=== PATIENT | male | born 1990 | race Caucasian/White ===

== ENCOUNTER 2017-06-07 11:37 | Emergency (ER) | payer OTHER ==
[2017-06-07] MEDS ORDERED: TORAdol 30 mg Injection IM ONE (11:55)
--- NOTE | 2017-06-07 12:01 | ERPHSYRPT ---
- History of Present Illness Time Seen by Provider: 06/07/17 11:56 Source: patient Exam Limitations: no limitations Patient Subjective Stated Complaint: states two weeks ago was hammering and struck 2nd digit left hand. having swelling and pain at joint on finger. has full rom to finger. also having pain to right foream. started yesterday. had surgery on right arm in the past. Triage Nursing Assessment: slight swelling noted to 2nd digit left hand. moving finger without difficulty. right forearm shows scar from previous surgery. no swelling noted to right forearm. Physician History: 27-year-old white male arrives with complaint of pain and swelling of his right index finger at the PIP joint dorsally symptoms going on for 2 weeks he states this began after hitting it with a hammer. He also complains of pain in his right wrist he states he has had a surgery on his right anterior forearm/wrist in the past and the yesterday at work he was lifting at work and felt a strain in his right wrist he has pain in the right anterior wrist worse with movement. Patient denies other complaints. Past medical history includes anxiety and depression old chart shows migraines and seizures. Past surgical history shows right forearm surgery. Social history positive for tobacco use. Occurred: other (right wrist pain since yesterday, right index finger painfor 2 weeks) Quality: other (lifting at work yesterday injured right wrist, hit right hand with hammer 2 weeks ago injuring right index finger) Extremities Pain Location: forearm: right, 2nd finger: left Modifying Factors: Improves With: nothing Associated Symptoms: none Allergies/Adverse Reactions: tramadol HCl [From [facility]] Allergy (Unknown, Verified 06/07/17 11:45) trazodone Allergy (Unknown, Verified 06/07/17 11:45) Hx Tetanus, Diphtheria Vaccination/Date Given: Yes (up to date) Hx Influenza Vaccination/Date Given: Yes Hx Pneumococcal Vaccination/Date Given: No - Review of Systems Constitutional: No Fever, No Chills Eyes: No Symptoms Ears, Nose, & Throat: No Symptoms Respiratory: No Cough, No Dyspnea Cardiac: No Chest Pain, No Edema, No Syncope Abdominal/Gastrointestinal: No Abdominal Pain, No Nausea, No Vomiting, No Diarrhea Genitourinary Symptoms: No Dysuria Musculoskeletal: Other (pain right wrist since yesterday anteriorly worse with movement, pain right dorsal index finger for 2 weeks) Skin: No Rash Neurological: No Dizziness, No Focal Weakness, No Sensory Changes Psychological: No Symptoms Endocrine: No Symptoms All Other Systems: Reviewed and Negative - Past Medical History Pertinent Past Medical History: Yes Neurological History: Migraines, Seizures ENT History: No Pertinent History Cardiac History: No Pertinent History Respiratory History: No Pertinent History Endocrine Medical History: No Pertinent History Musculoskeletal History: No Pertinent History GI Medical History: No Pertinent History History: No Pertinent History Psycho-Social History: Anxiety, Bipolar, Depression Male Reproductive Disorders: No Pertinent History Other Medical History: manic depressive - Past Surgical History Past Surgical History: Yes Neuro Surgical History: No Pertinent History Cardiac: No Pertinent History Respiratory: No Pertinent History Gastrointestinal: No Pertinent History Genitourinary: No Pertinent History Musculoskeletal: No Pertinent History Male Surgical History: No Pertinent History Other Surgical History: spinal tap--meningitis rule out. right lower arm surgery - Social History Smoking Status: Current every day smoker How long have you smoked: 10 Exposure to second hand smoke: Yes Drug Use: marijuana Patient Lives Alone: No Significant Family History: no pertinent family hx - Nursing Vital Signs Nursing Vital Signs: Initial Vital Signs Temperature 98.1 F 06/07/17 11:41 Pulse Rate 81 06/07/17 11:41 Respiratory Rate 16 06/07/17 11:41 Blood Pressure 129/104 06/07/17 11:41 O2 Sat by Pulse Oximetry 99 06/07/17 11:41 Pain Scale Pain Intensity 7 - Physical Exam General Appearance: alert Eyes, Ears, Nose, Throat Exam: moist mucous membranes Neck Exam: non-tender, supple Cardiovascular/Respiratory Exam: chest non-tender, normal breath sounds, regular rate/rhythm, no respiratory distress Abdominal Exam: non-tender, No guarding Back Exam: normal inspection, No vertebral tenderness Shoulder Exam: normal inspection, non-tender, no evidence of injury, normal ROM Elbow/Forearm Exam: No normal inspection (right forearm with a well-healed surrgical incision anteriorly) Wrist Exam: No normal inspection (right wrist tender with movement anteriorly, full range of motion right wrist) Hand Exam: No normal inspection (right second finger with mild edemaand tenderness with palpation and movement dorsally at pip joint, full range of motion all other fingers, good capillary refill all fingers, sensation intact to all fingers) Neuro/Tendon Exam: normal sensation, normal motor functions Mental Status Exam: alert, oriented x 3, cooperative Skin Exam: normal color, warm, dry SpO2 Interpretation: normal (99%) SpO2: 99 Oxygen Delivery: Room Air - Course Nursing assessment & vital signs reviewed: Yes - Radiology Exams Right Wrist X-ray Interpretation: Discussed w/ radiologist (x-ray right wrist: Normal bones , articulation, and soft tissues), Negative, No Fracture, No Subluxation Other X-ray Interpretation: Discussed w/ radiologist (X-ray left index finger: Normal bones, articulation, and soft tissues) Ordered Tests: Active Orders 24 hr Category Date Time Status Splint STAT Care 06/07/17 12:26 Active FINGER(S) Stat Exams 06/07/17 11:55 Taken WRIST (MIN 3 VIEWS) Stat Exams 06/07/17 11:54 Taken Medication Summary Discontinued Medications Generic Name Dose Route Start Last Admin Trade Name Joseq PRN Reason Stop Dose Admin Ketorolac Tromethamine 60 mg 06/07/17 11:55 06/07/17 12:14 Toradol 30 Mg Injection IM 06/07/17 11:56 60 mg STAT ONE Administration Ketorolac Tromethamine Confirm 06/07/17 12:07 Toradol 30 Mg Injection Administered 06/07/17 12:08 Dose 60 mg .ROUTE .Immediately-MED ONE - Progress Progress: improved Progress Note: 06/07/17 12:27 27-year-old white male arrives with complaint of pain and swelling right index finger over the dorsal proximal interphalangeal joint after hitting it with a hammer 2 weeks ago. Also complaining of pain in his right wrist patient has had tendon repair on his right wrist in the past he has old scars he states yesterday he was lifting at work and felt strain in his right wrist is having pain with movement of his right wrist.. X-ray of his right wrist no fractures no dislocation. X-ray of the left index finger no fractures no dislocation. Will go ahead and place Velcro wrist splint on the right wrist. Will write for Live. Patient ice elevate his right wrist index finger 24-48 hours. He continues a Velcro wrist splint for up to one week. He is to follow-up with his family doctor or company doctor if symptoms are worse, no better in 48 hours, or persist longer than one week. 06/07/17 12:32 - Departure Time of Disposition: 12:33 Departure Disposition: Home Clinical Impression: Strain of right wrist Qualifiers: Encounter type: initial encounter Qualified Code(s): S66.911A - Strain of unspecified muscle, fascia and tendon at wrist and hand level, right hand, initial encounter Contusion of right index finger Qualifiers: Encounter type: initial encounter Damage to nail status: without damage Qualified Code(s): S60.021A - Contusion of right index finger without damage to nail, initial encounter Condition: Fair Critical Care Time: No Referrals: PAULINE COTA [Primary Care Provider] - Additional Instructions: Return home. Ice and elevate right wrist left index finger 24-48 hours. Wear right wristlet up to 1 week. Follow-up with your family Dr. or company doctor symptoms are worse no better in 48 hours or persist longer than one week. Return for acute distress or for severe symptoms. Naprosyn 500 mg orally twice a day with food as needed for pain #20. Prescriptions: Naproxen 500 mg [Naprosyn 500 MG] 500 mg PO BID #20 tablet
[2017-06-07] MEDS ORDERED: TORAdol 30 mg Injection ONE (12:07)
--- NOTE | 2017-06-07 12:28 | XRAY ---
Indication: Pain following injury. Comparison: None 3 views of the left second finger demonstrates normal bones, articulation, and soft tissues.
--- NOTE | 2017-06-07 12:28 | XRAY ---
Indication: Pain. No known injury. Comparison: None 3 views of the right wrist demonstrates normal bones, articulation, and soft tissues.
[2017-06-07 12:43] VITALS: BP 132/83; PULSE 72; O2SAT 100
== END 2017-06-07 12:42 | disposition home or self-care (01) ==
LOC: ED 11:37
DX: S66.911A Strain of unspecified muscle, fascia and tendon at wrist and hand level, right hand, initial encounter (principal); S60.021A Contusion of right index finger without damage to nail, initial encounter; W22.8XXA Striking against or struck by other objects, initial encounter; X50.0XXA Overexertion from strenuous movement or load, initial encounter
CPT/HCPCS: 73110; 73140; 96372; 99283; J1885; L3908

== ENCOUNTER → 2017-11-27 | Emergency (ER) | payer OTHER ==
[~2017-11-27] MED LIST: BACIGUENT PACKET ONE; BACIGUENT PACKET TP ONE
--- NOTE | 2017-11-27 16:03 | ERPHSYRPT ---
- History of Present Illness Source: patient Exam Limitations: no limitations Patient Subjective Stated Complaint: states he has been seeing things and hearing things for two days. states "I think I'm schizophrenic". yesterday and today has been cutting himself on the left arm with a razor blade. Triage Nursing Assessment: ambulated to room per self. skin w/d, color normal, resp easy. a/o times three. has several superficial wounds to left forearm. no active bleeding. cleaned with hibiclens and saline. Timing/Duration: other (began cutting himself yesterday which continued today) Severity: moderate Modifying Factors: Improves With: nothing Associated Symptoms: No nausea, No vomiting, No abdominal pain, No heartburn, No diaphoresis, No cough, No chills, No chest pain, No fever, No headaches, No loss of appetite, No malaise, No rash, No syncope, No seizure, No weakness Hx Tetanus, Diphtheria Vaccination/Date Given: Yes (up to date) Hx Influenza Vaccination/Date Given: Yes Hx Pneumococcal Vaccination/Date Given: No <SALEEM FELIX - Last Filed: 11/27/17 19:14> <KESHA TURNER - Last Filed: 11/27/17 22:28> - History of Present Illness Time Seen by Provider: 11/27/17 15:51 Physician History: 27-year-old white male with history of bipolar depression migraines seizures who states he thinks he schizophrenic, He arrives with complaint of several lacerations to the left anterior forearm he states he is place these between yesterday and today. He states he was trying to harm himself. He states that he has been seeing "shadow people" for approximately 2 months he states these are telling him to harm himself He states he has had similar episode approximately 9 months ago where he lacerated his right forearm and required surgical repair. Past medical history includes migraines, seizure, anxiety, bipolar depression, Patient states he thinks he is schizophrenic. Past surgical history repair of right forearm Patient apparently had had a spinal tap in the past rule out meningitis Social history positive tobacco use +3-4 alcoholic beverages a day He denies illicit drugs (SALEEM FELIX) Allergies/Adverse Reactions: [facility] Allergy (Unknown, Verified 11/27/17 15:35) trazodone Allergy (Unknown, Verified 11/27/17 15:35) Home Medications: No Reportable Medications [No Reported Medications] 11/27/17 [History] - Review of Systems Constitutional: No Fever, No Chills Eyes: No Symptoms Ears, Nose, & Throat: No Symptoms Respiratory: No Cough, No Dyspnea Cardiac: No Chest Pain, No Edema, No Syncope Abdominal/Gastrointestinal: No Abdominal Pain, No Nausea, No Vomiting, No Diarrhea Genitourinary Symptoms: No Dysuria Musculoskeletal: No Back Pain, No Neck Pain Skin: Other (patient with 4 lacerations on his left forearm each approximately 8 cm 1 which requires sutures) Neurological: No Dizziness, No Focal Weakness, No Sensory Changes Psychological: Suicidal Ideations, Other (patient with visual and auditory hallucintions) Endocrine: No Symptoms All Other Systems: Reviewed and Negative <SALEEM FELIX - Last Filed: 11/27/17 19:14> - Past Medical History Pertinent Past Medical History: Yes Neurological History: Migraines, Seizures ENT History: No Pertinent History Cardiac History: No Pertinent History Respiratory History: No Pertinent History Endocrine Medical History: No Pertinent History Musculoskeletal History: No Pertinent History GI Medical History: No Pertinent History History: No Pertinent History Psycho-Social History: Anxiety, Bipolar, Depression Male Reproductive Disorders: No Pertinent History Other Medical History: manic depressive - Past Surgical History Past Surgical History: Yes Neuro Surgical History: No Pertinent History Cardiac: No Pertinent History Respiratory: No Pertinent History Gastrointestinal: No Pertinent History Genitourinary: No Pertinent History Musculoskeletal: No Pertinent History Male Surgical History: No Pertinent History Other Surgical History: spinal tap--meningitis rule out. right lower arm surgery - Social History Smoking Status: Current every day smoker How long have you smoked: 11 Exposure to second hand smoke: No Drug Use: none Patient Lives Alone: No Significant Family History: no pertinent family hx <SALEEM FELIX - Last Filed: 11/27/17 19:14> - Physical Exam General Appearance: other (well-developed well-nourished white male, alert oriented 3, pleasant and cooperative to examination) Eye Exam: PERRL/EOMI, eyes nml inspection Ears, Nose, Throat Exam: normal ENT inspection, TMs normal, pharynx normal, moist mucous membranes Neck Exam: normal inspection, non-tender, supple, full range of motion Respiratory Exam: normal breath sounds, lungs clear, No respiratory distress Cardiovascular Exam: regular rate/rhythm, normal heart sounds, normal peripheral pulses Gastrointestinal/Abdomen Exam: soft, normal bowel sounds, No tenderness, No mass Extremity Exam: other (patient with 4, 8 cm lacerations of varying ages on his left anterior forearm this 3 medial lacerations are superfial and appear to be somewhat old the lateralmost laceration appears to be fresh) Neurologic Exam: alert, oriented x 3, cooperative, normal mood/affect, nml cerebellar function, nml station & gait, sensation nml, No motor deficits Skin Exam: normal color, warm, dry, No rash SpO2 Interpretation: normal (100%) SpO2: 100 Oxygen Delivery: Room Air <SALEEM FELIX - Last Filed: 11/27/17 19:14> - Nursing Vital Signs Nursing Vital Signs: Initial Vital Signs Temperature 99.1 F 11/27/17 15:22 Pulse Rate 99 H 11/27/17 15:22 Respiratory Rate 16 11/27/17 15:22 Blood Pressure 152/94 11/27/17 15:22 O2 Sat by Pulse Oximetry 100 11/27/17 15:22 Pain Scale Pain Intensity 0 - Course Nursing assessment & vital signs reviewed: Yes EKG Interpreted by Me: RATE (118 bpm), Sinus Tach, NORMAL AXIS, Other (EKG: Sinus tachycardia, 118 bpm, normal axis, no acute ST or T wave changes noted essentially normal EKG) <SALEEM FELIX - Henry Filed: 11/27/17 19:14> Ordered Tests: Active Orders 24 hr Category Date Time Status EKG-ER Only STAT Care 11/27/17 15:57 Active IV Insertion STAT Care 11/27/17 15:57 Active Psychiatric Evaluation STAT Care 11/27/17 15:57 Active Wound Care STAT Care 11/27/17 15:56 Active ACETAMINOPHEN Stat Lab 11/27/17 16:12 Completed Blood Alcohol [ETHYL ALCOHOL] Stat Lab 11/27/17 21:22 Completed CBC W DIFF Stat Lab 11/27/17 16:12 Completed CMP Stat Lab 11/27/17 16:12 Completed CULTURE,URINE Stat Lab 11/27/17 16:55 Received ETHYL ALCOHOL Stat Lab 11/27/17 16:12 Completed SALICYLATE Stat Lab 11/27/17 16:12 Completed UA W/ MICROSCOPIC Stat Lab 11/27/17 16:55 Completed Urine Triage Profile Stat Lab 11/27/17 16:55 Completed Medication Summary Discontinued Medications Generic Name Dose Route Start Last Admin Trade Name Dejah PRN Reason Stop Dose Admin Bacitracin Zinc 0.9 gm 11/27/17 15:56 11/27/17 16:20 Baciguent Packet TP 11/27/17 15:57 0.9 gm STAT ONE Administration Bacitracin Zinc Confirm 11/27/17 16:17 Baciguent Packet Administered 11/27/17 16:18 Dose 1 gm .ROUTE .STK-MED ONE Lab/Rad Data: Laboratory Result Diagrams 11/27/17 16:12 11/27/17 16:12 Laboratory Results 11/27/17 11/27/17 11/27/17 Range/Units 21:22 16:55 16:55 WBC (4.0-10.5) K/mm3 RBC (4.1-5.6) M/mm3 Hgb (12.5-18.0) gm/dl Hct (42-50) % MCV (78-100) fl MCH (26-32) pg MCHC (32-36) g/dl RDW (11.5-14.0) % Plt Count (150-450) K/mm3 MPV (6-9.5) fl Gran % (36.0-66.0) % Eos # (Auto) (0-0.5) Absolute Lymphs (auto) (1.0-4.6) Absolute Monos (auto) (0.0-1.3) Lymphocytes % (24.0-44.0) % Monocytes % (0.0-12.0) % Eosinophils % (0.00-5.0) % Basophils % (0.0-0.4) % Absolute Granulocytes (1.4-6.9) Basophils # (0-0.4) Sodium (137-145) mmol/L Potassium (3.5-5.1) mmol/L Chloride (98-107) mmol/L Carbon Dioxide (22-30) mmol/L Anion Gap (5-15) MEQ/L BUN (9-20) mg/dL Creatinine (0.66-1.25) mg/dL Estimated GFR ML/MIN Glucose (74-106) mg/dL Calcium (8.4-10.2) mg/dL Total Bilirubin (0.2-1.3) mg/dL AST (17-59) U/L ALT (0-50) U/L Alkaline Phosphatase (38-126) U/L Serum Total Protein (6.3-8.2) g/dL Albumin (3.5-5.0) g/dL Ur Collection Type VOID Urine Color YELLOW (YELLOW) Urine Appearance CLEAR (CLEAR) Urine pH 5.0 (5-6) Ur Specific [place] 1.020 (1.005-1.025) Urine Protein 30 (Negative) Urine Ketones NEGATIVE (NEGATIVE) Urine Blood 50 (0-5) Alejo/ul Urine Nitrite NEGATIVE (NEGATIVE) Urine Bilirubin NEGATIVE (NEGATIVE) Urine Urobilinogen NORMAL (0-1) mg/dL Ur Leukocyte Esterase NEGATIVE (NEGATIVE) Urine Microscopic RBC 0-2 (0-2) /HPF Urine Microscopic WBC 0-2 (0-5) /HPF Urine Bacteria RARE (NEGATIVE) /HPF Urine Culture Reflexed YES (NO) Urine Glucose NEGATIVE (NEGATIVE) mg/dL Salicylates (2-20) mg/dL Urine Opiates Level NEGATIVE (NEGATIVE) Ur Methadone NEGATIVE (NEGATIVE) Acetaminophen (10-30) ug/ml Urine Barbiturates NEGATIVE (NEGATIVE) Ur Phencyclidine (PCP) NEGATIVE (NEGATIVE) Urine Amphetamine NEGATIVE (NEGATIVE) U Benzodiazepine Level NEGATIVE (NEGATIVE) Urine Cocaine NEGATIVE (NEGATIVE) Urine Marijuana (THC) NEGATIVE (NEGATIVE) Ethyl Alcohol < 10 (0-10) mg/dL Specimen Received 11/27/17 1700 11/27/17 11/27/17 Range/Units 16:12 16:12 WBC 11.2 H (4.0-10.5) K/mm3 RBC 5.34 (4.1-5.6) M/mm3 Hgb 17.6 (12.5-18.0) gm/dl Hct 50.4 H (42-50) % MCV 94.4 (78-100) fl MCH 33.0 H (26-32) pg MCHC 34.9 (32-36) g/dl RDW 13.1 (11.5-14.0) % Plt Count 321 (150-450) K/mm3 MPV 9.2 (6-9.5) fl Gran % 67.3 H (36.0-66.0) % Eos # (Auto) 0.07 (0-0.5) Absolute Lymphs (auto) 2.60 (1.0-4.6) Absolute Monos (auto) 0.99 (0.0-1.3) Lymphocytes % 23.1 L (24.0-44.0) % Monocytes % 8.8 (0.0-12.0) % Eosinophils % 0.6 (0.00-5.0) % Basophils % 0.2 (0.0-0.4) % Absolute Granulocytes 7.56 H (1.4-6.9) Basophils # 0.02 (0-0.4) Sodium 142 (137-145) mmol/L Potassium 3.9 (3.5-5.1) mmol/L Chloride 103 (98-107) mmol/L Carbon Dioxide 23 (22-30) mmol/L Anion Gap 20.5 H (5-15) MEQ/L BUN 13 (9-20) mg/dL Creatinine 0.90 (0.66-1.25) mg/dL Estimated GFR > 60.0 ML/MIN Glucose 109 H (74-106) mg/dL Calcium 9.9 (8.4-10.2) mg/dL Total Bilirubin 0.80 (0.2-1.3) mg/dL AST 37 (17-59) U/L ALT 23 (0-50) U/L Alkaline Phosphatase 115 (38-126) U/L Serum Total Protein 8.6 H (6.3-8.2) g/dL Albumin 5.3 H (3.5-5.0) g/dL Ur Collection Type Urine Color (YELLOW) Urine Appearance (CLEAR) Urine pH (5-6) Ur Specific [place] (1.005-1.025) Urine Protein (Negative) Urine Ketones (NEGATIVE) Urine Blood (0-5) Alejo/ul Urine Nitrite (NEGATIVE) Urine Bilirubin (NEGATIVE) Urine Urobilinogen (0-1) mg/dL Ur Leukocyte Esterase (NEGATIVE) Urine Microscopic RBC (0-2) /HPF Urine Microscopic WBC (0-5) /HPF Urine Bacteria (NEGATIVE) /HPF Urine Culture Reflexed (NO) Urine Glucose (NEGATIVE) mg/dL Salicylates < 1.0 L (2-20) mg/dL Urine Opiates Level (NEGATIVE) Ur Methadone (NEGATIVE) Acetaminophen < 10 L (10-30) ug/ml Urine Barbiturates (NEGATIVE) Ur Phencyclidine (PCP) (NEGATIVE) Urine Amphetamine (NEGATIVE) U Benzodiazepine Level (NEGATIVE) Urine Cocaine (NEGATIVE) Urine Marijuana (THC) (NEGATIVE) Ethyl Alcohol 145 H (0-10) mg/dL Specimen Received - Progress Progress: improved <SALEEM FELIX - Last Filed: 11/27/17 19:14> - Progress Counseled pt/family regarding: lab results, diagnosis, need for follow-up <KESHA TURNER - Last Filed: 11/27/17 22:28> - Progress Progress Note: 11/27/17 16:04 This is a 27-year-old white male with a history of bipolar disorder seizures, migraines, anxiety, who states he thinks he is schizophrenic He arrives with for self-inflicted lacerations to his left forearm which are approximately 8 cm and one of which requires repair. He states he has been saying "shadow people" for approximately 2 months. And these have been telling him to harm himself. He states he lacerated himself beginning yesterday with the intent of harming himself. He does have a history of prior self-inflicted wound to his right forearm which required surgical repair. The patient states he drinks 3-4 alcoholic beverages a day he uses tobacco he denies illicit drug use. I've asked the nurse to go ahead and clean the patient's lacerations on his left arm and repair the most lateral one with Dermabond. Will go ahead and obtain appropriate screening laboratory and obtain EKG. Will plan on psychiatric consultation. The patient's last tetanus was 4 years ago 11/27/17 19:11 8 cm laceration left arm repaired by nurse with Dermabond after sterile cleansing. Patient's labs have been obtained requests for consult has been sent to [facility]. Case is been discussed with Dr. Turner he will assume the patient's care secondary to shift change. (SALEEM FELIX) 11/27/17 19:23 Pt care discussed and care accepted from Dr Felix at 19:00. 11/27/17 22:27 Pt is accepted to [facility] by Dr Coyne. (KESHA TURNER) <SALEEM FELIX - Last Filed: 11/27/17 19:14> - Departure Time of Disposition: 22:26 Departure Disposition: Transfer (Transfer to [facility] per Dr Coyne.) Critical Care Time: No <KESHA TURNER. - Last Filed: 11/27/17 22:28> - Departure Clinical Impression: Depression, Self-inflicted injury, Suicidal behavior with attempted self-injury Condition: Stable Referrals: PAULINE COTA [Primary Care Provider] -
[2017-11-27 16:22] LABS: BASOPHIL % 0.2 % (0.0-0.4); Basophil (Absolute #) 0.02 (0-0.4); Eosinophil % 0.6 % (0.00-5.0); Eosinophil (Absolute #) 0.07 (0-0.5); Granulocyte Absolute (ANC) 7.56 (1.4-6.9); Granulocytes % 67.3 % (36.0-66.0); Hematocrit 50.4 % (42-50); Hemoglobin 17.6 gm/dl (12.5-18.0); Lymphocytes % 23.1 % (24.0-44.0); Mean Cell Volume 94.4 fl (78-100); Mean Corpuscular Hgb Concent. 34.9 g/dl (32-36); Mean Platelet Volume 9.2 fl (6-9.5); Monocyte (Absolute #) 0.99 (0.0-1.3); Monocytes % 8.8 % (0.0-12.0); Platelet Count 321 K/mm3 (150-450); Red Blood Count 5.34 M/mm3 (4.1-5.6); Red Cell Distribution Width 13.1 % (11.5-14.0); White Blood Count 11.2 K/mm3 (4.0-10.5)
[2017-11-27 16:37] LABS: ALBUMIN 5.3 g/dL (3.5-5.0); ALKALINE PHOSPHATASE 115 U/L (38-126); ANION GAP 20.5 MEQ/L (5-15); BLOOD UREA NITROGEN 13 mg/dL (9-20); CHLORIDE 103 mmol/L (98-107); Calcium 9.9 mg/dL (8.4-10.2); Carbon Dioxide 23 mmol/L (22-30); ETHYL ALCOHOL 145 mg/dL (0-10); Glucose 109 mg/dL (74-106); Potassium 3.9 mmol/L (3.5-5.1); SGOT/AST 37 U/L (17-59); SGPT/ALT 23 U/L (0-50); SODIUM 142 mmol/L (137-145); Total Protein 8.6 g/dL (6.3-8.2)
[2017-11-27 16:38] LABS: ACETAMINOPHEN < 10 ug/ml (10-30); SALICYLATE < 1.0 mg/dL (2-20)
[2017-11-27 17:05] LABS: Appearance CLEAR (CLEAR); Bilirubin NEGATIVE (NEGATIVE); Blood 50 Ery/ul (0-5); Glucose NEGATIVE (NEGATIVE); Ketones NEGATIVE (NEGATIVE); Leukocyte Esterase NEGATIVE (NEGATIVE); Nitrite NEGATIVE (NEGATIVE); Protein,Urine Dip 30 (Negative); Urobilinogen NORMAL mg/dL (0-1)
[2017-11-27 17:11] LABS: Bacteria RARE /HPF (NEGATIVE); RBC 0-2 /HPF (0-2); WBC 0-2 /HPF (0-5)
[2017-11-27 17:16] LABS: Amphetamine,Urine NEGATIVE (NEGATIVE); Barbiturate,Urine NEGATIVE (NEGATIVE); Benzodiazepine,Urine NEGATIVE (NEGATIVE); Cocaine,Urine NEGATIVE (NEGATIVE); Methadone,Urine NEGATIVE (NEGATIVE); Opiate,Urine NEGATIVE (NEGATIVE); PCP,Urine NEGATIVE (NEGATIVE); THC,Urine NEGATIVE (NEGATIVE)
[2017-11-27 23:46] VITALS: BP 147/76; PULSE 76; O2SAT 100
== END ==
LOC: ED 15:14
PROC: 0HQEXZZ Repair Left Lower Arm Skin, External Approach (ICD-10-PCS; principal; 2017-11-27)
DX: F32.9 Major depressive disorder, single episode, unspecified (principal); S51.812A Laceration without foreign body of left forearm, initial encounter; X78.8XXA Intentional self-harm by other sharp object, initial encounter
CPT/HCPCS: 12004; 36000; 36415; 80053; 80307; 81000; 85025; 87086; 90791; 93005; 99285; G0481; Q3014; A9270-GY; G0480

== ENCOUNTER 2019-03-17 11:02 | Emergency (ER) | payer OTHER ==
--- NOTE | 2019-03-17 11:22 | ERPHSYRPT ---
- History of Present Illness Time Seen by Provider: 03/17/19 11:15 Source: patient Exam Limitations: no limitations Patient Subjective Stated Complaint: pt reports productive cough, chest congestion and some chest pain increased with coughing. pt reports s/s for 6-7 days. Triage Nursing Assessment: pt is aox3, pupils perrl, pt appears in no distress at this time, afebrile, resps easy and non labored, slight wheeze heard to the middle right posterior lung field, radial pulses strong and equal, cap refill < 3 seconds, pt skin pink warm dry. intermittent cough noted upon exam. Physician History: 28 y/o white male presents with coughing for one week. now has cp with cough. denies fever. has no h/o cardiac problems. pt is a smoker. Timing/Duration: day(s) (6 to 7 days) Cough Quality/Degree: productive cough Possible Cause: no prior episodes Modifying Factors: Improves With: coughing Associated Symptoms: chest pain/soreness (with cough only), cough Allergies/Adverse Reactions: tramadol HCl [From [facility]] Allergy (Unknown, Verified 03/17/19 11:17) trazodone Allergy (Unknown, Verified 03/17/19 11:17) Hx Tetanus, Diphtheria Vaccination/Date Given: Yes Hx Influenza Vaccination/Date Given: Yes Hx Pneumococcal Vaccination/Date Given: No Immunizations Up to Date: Yes - Review of Systems Constitutional: No Symptoms Eyes: No Symptoms Ears, Nose, & Throat: No Symptoms Respiratory: Cough Cardiac: No Symptoms Abdominal/Gastrointestinal: No Symptoms Genitourinary Symptoms: No Symptoms Musculoskeletal: No Symptoms Skin: No Symptoms Neurological: No Symptoms Psychological: No Symptoms Endocrine: No Symptoms Hematologic/Lymphatic: No Symptoms Immunological/Allergic: No Symptoms All Other Systems: Reviewed and Negative - Past Medical History Pertinent Past Medical History: Yes Neurological History: Migraines, Seizures ENT History: No Pertinent History Cardiac History: No Pertinent History Respiratory History: No Pertinent History Endocrine Medical History: No Pertinent History Musculoskeletal History: No Pertinent History GI Medical History: No Pertinent History History: No Pertinent History Psycho-Social History: Anxiety, Bipolar, Depression Male Reproductive Disorders: No Pertinent History Other Medical History: manic depressive - Past Surgical History Past Surgical History: Yes Neuro Surgical History: No Pertinent History Cardiac: No Pertinent History Respiratory: No Pertinent History Gastrointestinal: No Pertinent History Genitourinary: No Pertinent History Musculoskeletal: No Pertinent History Male Surgical History: No Pertinent History Other Surgical History: spinal tap--meningitis rule out. right lower arm surgery - Social History Smoking Status: Current every day smoker How long have you smoked: 11 Exposure to second hand smoke: No Drug Use: none Patient Lives Alone: No Significant Family History: no pertinent family hx - Nursing Vital Signs Nursing Vital Signs: Initial Vital Signs Temperature 97.9 F 03/17/19 11:08 Pulse Rate 99 H 03/17/19 11:08 Respiratory Rate 20 03/17/19 11:08 Blood Pressure 126/83 03/17/19 11:08 O2 Sat by Pulse Oximetry 99 03/17/19 11:08 Pain Scale Pain Intensity 7 - Physical Exam General Appearance: no apparent distress, alert, anxiety Eye Exam: PERRL/EOMI, eyes nml inspection Ears, Nose, Throat Exam: normal ENT inspection, moist mucous membranes Neck Exam: normal inspection, non-tender, supple, full range of motion Respiratory Exam: airway intact, wheezing (mild right side insp and exp), No chest tenderness, No respiratory distress Cardiovascular Exam: regular rate/rhythm, normal heart sounds, normal peripheral pulses Gastrointestinal/Abdomen Exam: soft, normal bowel sounds, No tenderness, No guarding Back Exam: normal inspection, normal range of motion, No CVA tenderness, No vertebral tenderness Extremity Exam: normal inspection, normal range of motion, pelvis stable Neurologic Exam: alert, oriented x 3, cooperative, structural engineer II-XII nml as tested Skin Exam: normal color, warm, dry Lymphatic Exam: No adenopathy SpO2 Interpretation: normal SpO2: 99 O2 Delivery: Room Air - Course Nursing assessment & vital signs reviewed: Yes EKG Interpreted by Me: RATE, Sinus Rhythm, NORMAL AXIS, NORMAL INTERVALS, NORMAL QRS, Other (comparison ekg 11/27/17 resolved tachycardia) Ordered Tests: Active Orders 24 hr Category Date Time Status EKG-ER Only STAT Care 03/17/19 11:22 Active CHEST 1 VIEW (PORTABLE) Stat Exams 03/17/19 11:23 Taken - Departure Departure Disposition: Home Clinical Impression: Bronchitis Condition: Stable Critical Care Time: No Referrals: PAULINE COTA [Primary Care Provider] - Additional Instructions: drink plenty of fluids. avoid exposure to smoke of any kind. follow up with primary doctor for further management. Prescriptions: Azithromycin 250 mg [Zithromax 250 MG TABLET] 250 mg PO ZPACK #6 tablet Hydrocodone Bit/Acetaminophen [Hydrocodone-Acetaminophen Soln] 10 ml PO Q6H # 120 ml Prednisone 10 mg [Deltasone 10 mg] 10 mg PO TID #12 tablet
[2019-03-17] MEDS ORDERED: DUONEB 0.5-3 MG/3 ml Neb IH ONE ×2 (11:39→11:44)
--- NOTE | 2019-03-17 11:56 | XRAY ---
Indication: Cough and congestion. Comparison: April 23, 2016. Portable chest demonstrates hyperinflated clear lungs. Heart is not enlarged with incidental new subcarinal calcified nodes. Bony thorax intact. Impression: Nonacute hyperinflated chest.
[2019-03-17] MEDS ORDERED: Rocephin 1000 MG INJ IM ONE (12:00)
[2019-03-17] MEDS ORDERED: solu-MEDROL 125 MG IM ONE (12:00)
[2019-03-17] MEDS ORDERED: solu-MEDROL 125 MG ONE (12:06)
[2019-03-17] MEDS ORDERED: Rocephin 1000 MG INJ ONE (12:06)
[2019-03-17 12:20] VITALS: O2SAT 100
[2019-03-17 12:35] VITALS: BP 131/80; PULSE 99
== END 2019-03-17 12:34 | disposition home or self-care (01) ==
LOC: ED 11:02
DX: J40 Bronchitis, not specified as acute or chronic (principal)
CPT/HCPCS: 71045; 93005; 94150; 94640; 96372; 99284; J0696; J2930; A9270-GY

== ENCOUNTER 2019-03-24 10:30 | Emergency (ER) | payer OTHER ==
--- NOTE | 2019-03-24 10:54 | ERPHSYRPT ---
- History of Present Illness Time Seen by Provider: 03/24/19 10:54 Source: patient Exam Limitations: no limitations Patient Subjective Stated Complaint: Pt was in the ER last week for same symptoms, reports that he is still congested and coughing and he has completed his antibiotic, chest hurts when coughing Triage Nursing Assessment: Pt walked into the ER, tachycardic, hypertensive, cough with some yellow/green sputum, rates pain in chest 6/10, pulse normal, congested in nasal sinuses in the morning that turns into nasal drip Timing/Duration: week(s) (1) Cough Quality/Degree: moderate Possible Cause: occasional episodes Modifying Factors: Improves With: activity, coughing Associated Symptoms: fever, chills, chest pain/soreness, cough International travel in last 2 weeks: No Allergies/Adverse Reactions: tramadol HCl [From [facility]] Allergy (Unknown, Verified 03/24/19 10:43) trazodone Allergy (Unknown, Verified 03/24/19 10:43) Hx Tetanus, Diphtheria Vaccination/Date Given: Yes Hx Influenza Vaccination/Date Given: Yes Hx Pneumococcal Vaccination/Date Given: No - Review of Systems Constitutional: Fever, No Chills Eyes: No Symptoms Ears, Nose, & Throat: No Symptoms, Nose Congestion, Nose Discharge Respiratory: Cough, Wheezing, No Dyspnea Cardiac: No Symptoms, No Chest Pain, No Edema, No Syncope Abdominal/Gastrointestinal: No Symptoms, No Abdominal Pain, No Nausea, No Vomiting, No Diarrhea Genitourinary Symptoms: No Dysuria Musculoskeletal: No Symptoms, No Back Pain, No Neck Pain Skin: No Rash Neurological: No Symptoms, No Dizziness, No Focal Weakness, No Sensory Changes Psychological: No Symptoms Endocrine: No Symptoms All Other Systems: Reviewed and Negative - Past Medical History Pertinent Past Medical History: Yes Neurological History: Migraines, Seizures ENT History: No Pertinent History Cardiac History: No Pertinent History Respiratory History: No Pertinent History Endocrine Medical History: No Pertinent History Musculoskeletal History: No Pertinent History GI Medical History: No Pertinent History History: No Pertinent History Psycho-Social History: Anxiety, Bipolar, Depression Male Reproductive Disorders: No Pertinent History Other Medical History: manic depressive - Past Surgical History Past Surgical History: Yes Neuro Surgical History: No Pertinent History Cardiac: No Pertinent History Respiratory: No Pertinent History Gastrointestinal: No Pertinent History Genitourinary: No Pertinent History Musculoskeletal: No Pertinent History Male Surgical History: No Pertinent History Other Surgical History: spinal tap--meningitis rule out. right lower arm surgery - Social History Smoking Status: Current every day smoker How long have you smoked: 11 Exposure to second hand smoke: Yes Drug Use: marijuana Patient Lives Alone: No Significant Family History: no pertinent family hx - Nursing Vital Signs Nursing Vital Signs: Initial Vital Signs Temperature 97.6 F 03/24/19 10:34 Pulse Rate 111 H 03/24/19 10:34 Respiratory Rate 14 03/24/19 10:34 Blood Pressure 157/102 03/24/19 10:34 O2 Sat by Pulse Oximetry 100 03/24/19 10:34 Pain Scale Pain Intensity 6 - Physical Exam General Appearance: no apparent distress Eye Exam: PERRL/EOMI, eyes nml inspection Ears, Nose, Throat Exam: TMs normal, pharynx normal, moist mucous membranes, other (nasal/sinus congestion) Neck Exam: normal inspection, non-tender, supple Respiratory Exam: airway intact, rhonchi (mild), wheezing (mild) Cardiovascular Exam: regular rate/rhythm, normal heart sounds Gastrointestinal/Abdomen Exam: soft, normal bowel sounds Rectal Exam: deferred Back Exam: normal inspection, normal range of motion Extremity Exam: normal inspection, normal range of motion Neurologic Exam: alert, oriented x 3, cooperative Skin Exam: normal color SpO2 Interpretation: normal SpO2: 100 O2 Delivery: Room Air - Course Nursing assessment & vital signs reviewed: Yes Ordered Tests: Active Orders 24 hr Category Date Time Status CHEST 2 VIEWS (PA AND LAT) Stat Exams 03/24/19 11:08 Completed Medication Summary Discontinued Medications Generic Name Dose Route Start Last Admin Trade Name Dejah PRN Reason Stop Dose Admin Ceftriaxone Sodium 1,000 mg 03/24/19 11:38 03/24/19 11:51 Rocephin 1000 Mg Inj IM 03/24/19 11:39 1,000 mg STAT ONE Administration Ceftriaxone Sodium Confirm 03/24/19 11:47 Rocephin 1000 Mg Inj Administered 03/24/19 11:48 Dose 1,000 mg .ROUTE .STK-MED ONE Dexamethasone Sodium Phosphate 10 mg 03/24/19 11:39 03/24/19 11:52 Decadron 10mg Inj. IM 03/24/19 11:40 10 mg STAT ONE Administration Dexamethasone Sodium Phosphate Confirm 03/24/19 11:47 Decadron 10mg Inj. Administered 03/24/19 11:48 Dose 10 mg .ROUTE .STK-MED ONE Lidocaine HCl Confirm 03/24/19 11:47 Xylocaine 1% Hcl 20 Ml Mdv Administered 03/24/19 11:48 Dose 3 ml .ROUTE .STK-MED ONE CXR neg - Progress Progress: improved Air Movement: good Blood Culture(s) Obtained: No Antibiotics given: Yes Counseled pt/family regarding: diagnosis, need for follow-up, rad results - Departure Departure Disposition: Home Clinical Impression: Bronchitis Sinusitis Qualifiers: Sinusitis location: maxillary Chronicity: acute Recurrence: recurrent Qualified Code(s): J01.01 - Acute recurrent maxillary sinusitis Condition: Stable Critical Care Time: No Referrals: PAULINE COTA [Primary Care Provider] - Additional Instructions: Over the counter medication as helpful. Recheck if not better. Recheck your blood pressure soon. Forms: Work/School Release Form Plan of Treatment: Abx, MDI, cough med. Recheck prn. Prescriptions: Albuterol 17 gm IH Q4H PRN PRN #1 aerosol PRN Reason: Shortness Of Breath/Wheezing Benzonatate [Tessalon Perle] 200 mg PO TIDPRN #30 capsule Cefdinir [Omnicef] 300 mg PO BID #20 capsule
--- NOTE | 2019-03-24 11:23 | XRAY ---
Exam: Two-view chest from 03/24/2019. Comparison: AP upright portable chest film from 03/17/2019. Indication: Cough. Findings: Upright PA and lateral chest films were obtained. The heart size and contour are normal. There appear to be some small subcarinal granulomatous calcifications representing no change. The remainder of the molly and mediastinal structures appears unremarkable. The lungs are well inflated. No air space infiltrates to suggest open pneumonia, vascular congestion, pneumothorax, or pleural fluid is seen. No acute osseous process is seen. Impression: 1. No air space infiltrates to suggest pneumonia or other acute cardiopulmonary disease is seen.
[2019-03-24] MEDS ORDERED: Rocephin 1000 MG INJ IM ONE (11:38)
[2019-03-24] MEDS ORDERED: DECADRON 10MG INJ. IM ONE (11:39)
[2019-03-24] MEDS ORDERED: DECADRON 10MG INJ. ONE (11:47)
[2019-03-24] MEDS ORDERED: XYLOCAINE 1% HCL 20 ML MDV ONE (11:47)
[2019-03-24] MEDS ORDERED: Rocephin 1000 MG INJ ONE (11:47)
[2019-03-24 12:12] VITALS: BP 144/83; PULSE 98
[2019-03-24 18:15] VITALS: O2SAT 100
== END 2019-03-24 12:28 | disposition home or self-care (01) ==
LOC: ED 10:30
DX: J40 Bronchitis, not specified as acute or chronic (principal); J01.01 Acute recurrent maxillary sinusitis
CPT/HCPCS: 71046; 96372; 99284; J0696; J1100

== ENCOUNTER 2019-08-21 01:18 | Emergency (ER) | payer OTHER ==
--- NOTE | 2019-08-21 01:33 | ERPHSYRPT ---
- History of Present Illness Source: patient, police Exam Limitations: no limitations Timing/Duration: today Severity of Symptoms-Max: moderate Severity of Symptoms-Current: moderate Suicidal thoughts: other (Deviation) Associated Symptoms: depressed, hallucinating, suicidal ideation Previous symptoms: same symptoms as today Hx Tetanus, Diphtheria Vaccination/Date Given: Yes Hx Influenza Vaccination/Date Given: Yes Hx Pneumococcal Vaccination/Date Given: No - History of Present Illness Time Seen by Provider: 08/21/19 01:33 Allergies/Adverse Reactions: tramadol HCl [From [facility]] Allergy (Unknown, Verified 08/21/19 01:38) pt states that they mess with his heart trazodone Allergy (Unknown, Verified 08/21/19 01:39) pt states that it messes with his heart Home Medications: Clonazepam 1 mg PO TID 08/21/19 [History] Fluoxetine HCl 40 mg PO DAILY 08/21/19 [History] Kappa Carbonate 300 mg [Kappa Carbonate 300 MG] 300 mg PO BID [History] Quetiapine Fumarate 100 mg PO HS 08/21/19 [History] - Past Medical History Pertinent Past Medical History: Yes Neurological History: Migraines, Seizures ENT History: No Pertinent History Cardiac History: No Pertinent History Respiratory History: No Pertinent History Endocrine Medical History: No Pertinent History Musculoskeletal History: No Pertinent History GI Medical History: No Pertinent History History: No Pertinent History Psycho-Social History: Anxiety, Bipolar, Depression Male Reproductive Disorders: No Pertinent History Other Medical History: manic depressive - Past Surgical History Past Surgical History: Yes Neuro Surgical History: No Pertinent History Cardiac: No Pertinent History Respiratory: No Pertinent History Gastrointestinal: No Pertinent History Genitourinary: No Pertinent History Musculoskeletal: No Pertinent History Male Surgical History: No Pertinent History Other Surgical History: spinal tap--meningitis rule out. right lower arm surgery - Social History Smoking Status: Current every day smoker How long have you smoked: 11 Exposure to second hand smoke: Yes Drug Use: marijuana Patient Lives Alone: No Significant Family History: no pertinent family hx - Review of Systems Constitutional: No Symptoms Eyes: No Symptoms Ears, Nose, & Throat: No Symptoms Respiratory: No Symptoms Cardiac: No Symptoms Abdominal/Gastrointestinal: No Symptoms Genitourinary Symptoms: No Symptoms Musculoskeletal: No Symptoms Skin: No Symptoms Neurological: No Symptoms Psychological: Suicidal Ideations, Hallucinations (Auditory but no visual) Endocrine: No Symptoms Hematologic/Lymphatic: No Symptoms Immunological/Allergic: No Symptoms All Other Systems: Reviewed and Negative - Physical Exam General Appearance: no apparent distress, alert, other (Smells of alcohol intoxication) Eyes, Ears, Nose, Throat Exam: normal ENT inspection, moist mucous membranes Neck Exam: normal inspection, non-tender, supple, full range of motion Respiratory Exam: normal breath sounds, lungs clear, airway intact, No chest tenderness, No respiratory distress Cardiovascular Exam: regular rate/rhythm, normal heart sounds, normal peripheral pulses Gastrointestinal/Abdominal Exam: soft, normal bowel sounds, No tenderness Extremities Exam: normal inspection, normal range of motion, No evidence of injury Current Suicidality: denies suicide plan Neurological Exam: alert, normal mood/affect, calm, range aide II-XII nml as tested, oriented x 3 Appearance: appropriate appearance, impaired insight Behavior/Eye Contact/Speech: alert & cooperative, good eye contact, intoxicated appearance Thoughts/Hallucinations: auditory hallucinations Skin Exam: normal color, warm, dry SpO2 Interpretation: normal O2 Delivery: Room Air - Nursing Vital Signs Nursing Vital Signs: Initial Vital Signs Temperature 98.1 F 08/21/19 01:19 Pulse Rate 94 H 08/21/19 01:19 Blood Pressure 126/84 08/21/19 01:19 O2 Sat by Pulse Oximetry 100 08/21/19 01:19 Pain Scale Pain Intensity 0 - Course Nursing assessment & vital signs reviewed: Yes EKG Interpreted by Me: RATE (94), Sinus Rhythm, NORMAL AXIS, NORMAL INTERVALS, NORMAL QRS, Other (No acute changes on current EKG. There is no change when compared to EKG dated March 17, 2019) Lab/Rad Data: Laboratory Result Diagrams 08/21/19 02:04 08/21/19 02:04 Laboratory Results 08/21/19 08/21/19 08/21/19 Range/Units 03:59 02:59 02:59 WBC (4.0-10.5) K/mm3 RBC (4.1-5.6) M/mm3 Hgb (12.5-18.0) gm/dl Hct (42-50) % MCV (78-100) fl MCH (26-32) pg MCHC (32-36) g/dl RDW (11.5-14.0) % Plt Count (150-450) K/mm3 MPV (7.5-11.0) fl Gran % (36.0-66.0) % Eos # (Auto) (0-0.5) Absolute Lymphs (auto) (1.0-4.6) Absolute Monos (auto) (0.0-1.3) Lymphocytes % (24.0-44.0) % Monocytes % (0.0-12.0) % Eosinophils % (0.00-5.0) % Basophils % (0.0-0.4) % Absolute Granulocytes (1.4-6.9) Basophils # (0-0.4) Sodium (137-145) mmol/L Potassium (3.5-5.1) mmol/L Chloride (98-107) mmol/L Carbon Dioxide (22-30) mmol/L Anion Gap (5-15) MEQ/L BUN (9-20) mg/dL Creatinine (0.66-1.25) mg/dL Estimated GFR ML/MIN Glucose (74-106) mg/dL Calcium (8.4-10.2) mg/dL Total Bilirubin (0.2-1.3) mg/dL AST (17-59) U/L ALT (0-50) U/L Alkaline Phosphatase (38-126) U/L Serum Total Protein (6.3-8.2) g/dL Albumin (3.5-5.0) g/dL Urine Color YELLOW (YELLOW) Urine Appearance CLEAR (CLEAR) Urine pH 6.0 (5-6) Ur Specific [place] 1.012 (1.005-1.025) Urine Protein NEGATIVE (Negative) Urine Ketones NEGATIVE (NEGATIVE) Urine Blood NEGATIVE (0-5) Alejo/ul Urine Nitrite NEGATIVE (NEGATIVE) Urine Bilirubin NEGATIVE (NEGATIVE) Urine Urobilinogen NEGATIVE (0-1) mg/dL Ur Leukocyte Esterase NEGATIVE (NEGATIVE) Urine WBC (Auto) NONE (0-5) /HPF Urine RBC (Auto) NONE (0-2) /HPF U Epithel Cells (Auto) NONE (FEW) /HPF Urine Bacteria (Auto) NONE (NEGATIVE) /HPF Urine Mucus (Auto) SLIGHT (NEGATIVE) /HPF Urine Culture Reflexed NO (NO) Urine Glucose NEGATIVE (NEGATIVE) mg/dL Salicylates (2-20) mg/dL Urine Opiates Level NEGATIVE (NEGATIVE) Ur Methadone NEGATIVE (NEGATIVE) Acetaminophen (10-30) ug/ml Urine Barbiturates NEGATIVE (NEGATIVE) Ur Phencyclidine (PCP) NEGATIVE (NEGATIVE) Urine Amphetamine NEGATIVE (NEGATIVE) U Benzodiazepine Level NEGATIVE (NEGATIVE) Urine Cocaine NEGATIVE (NEGATIVE) Urine Marijuana (THC) NEGATIVE (NEGATIVE) Ethyl Alcohol 219 H (0-10) mg/dL 08/21/19 08/21/19 Range/Units 02:04 02:04 WBC 7.9 (4.0-10.5) K/mm3 RBC 4.44 (4.1-5.6) M/mm3 Hgb 14.0 (12.5-18.0) gm/dl Hct 43.5 (42-50) % MCV 98.0 (78-100) fl MCH 31.5 (26-32) pg MCHC 32.2 (32-36) g/dl RDW 13.6 (11.5-14.0) % Plt Count 316 (150-450) K/mm3 MPV 9.7 (7.5-11.0) fl Gran % 47.9 (36.0-66.0) % Eos # (Auto) 0.34 (0-0.5) Absolute Lymphs (auto) 2.91 (1.0-4.6) Absolute Monos (auto) 0.82 (0.0-1.3) Lymphocytes % 37.0 (24.0-44.0) % Monocytes % 10.4 (0.0-12.0) % Eosinophils % 4.3 (0.00-5.0) % Basophils % 0.4 (0.0-0.4) % Absolute Granulocytes 3.77 (1.4-6.9) Basophils # 0.03 (0-0.4) Sodium 150 H* (137-145) mmol/L Potassium 4.5 (3.5-5.1) mmol/L Chloride 107 (98-107) mmol/L Carbon Dioxide 32 H (22-30) mmol/L Anion Gap 15.4 H (5-15) MEQ/L BUN 9 (9-20) mg/dL Creatinine 1.01 (0.66-1.25) mg/dL Estimated GFR > 60.0 ML/MIN Glucose 90 (74-106) mg/dL Calcium 9.7 (8.4-10.2) mg/dL Total Bilirubin 0.40 (0.2-1.3) mg/dL AST 28 (17-59) U/L ALT 17 (0-50) U/L Alkaline Phosphatase 90 (38-126) U/L Serum Total Protein 8.2 (6.3-8.2) g/dL Albumin 4.9 (3.5-5.0) g/dL Urine Color (YELLOW) Urine Appearance (CLEAR) Urine pH (5-6) Ur Specific [place] (1.005-1.025) Urine Protein (Negative) Urine Ketones (NEGATIVE) Urine Blood (0-5) Alejo/ul Urine Nitrite (NEGATIVE) Urine Bilirubin (NEGATIVE) Urine Urobilinogen (0-1) mg/dL Ur Leukocyte Esterase (NEGATIVE) Urine WBC (Auto) (0-5) /HPF Urine RBC (Auto) (0-2) /HPF U Epithel Cells (Auto) (FEW) /HPF Urine Bacteria (Auto) (NEGATIVE) /HPF Urine Mucus (Auto) (NEGATIVE) /HPF Urine Culture Reflexed (NO) Urine Glucose (NEGATIVE) mg/dL Salicylates 1.0 L (2-20) mg/dL Urine Opiates Level (NEGATIVE) Ur Methadone (NEGATIVE) Acetaminophen < 10 L (10-30) ug/ml Urine Barbiturates (NEGATIVE) Ur Phencyclidine (PCP) (NEGATIVE) Urine Amphetamine (NEGATIVE) U Benzodiazepine Level (NEGATIVE) Urine Cocaine (NEGATIVE) Urine Marijuana (THC) (NEGATIVE) Ethyl Alcohol 248 H (0-10) mg/dL - Progress Progress: improved, re-examined Counseled pt/family regarding: lab results, diagnosis - Progress Progress Note: 08/22/19 07:14 This is a late entry note. This patient was having suicidal ideation. Patient was brought in by the police and initially IDed. Throughout the patient's stay here in the emergency department he was very cooperative and patient. The patient's mother came and had a discussion with the patient. Patient's blood alcohol was persistently elevated but improving. Other than the elevated blood alcohol the patient was medically stable. He agrees and desires to obtain help. He did not want to continue to wait. He did not have a plan. The police removed the ID once the patient agreed to be discharged to home under the close observation of his mother. Patient's mother will take the patient to be seen in the [facility] outpatient clinic. A couple hours after his discharge, the patient called to let us know that he will be following up that morning for outpatient care. Patient was then discharged to home under the close supervision and care of his mother (CHIKI ROBERT) - Departure Departure Disposition: Home Critical Care Time: No - Departure Clinical Impression: Suicidal ideation, Alcohol intoxication Condition: Stable Referrals: PAULINE COTA [Primary Care Provider] - Additional Instructions: Follow-up as an outpatient this morning with outpatient mental health care clinic.
[2019-08-21 01:53] VITALS: O2SAT 100
[2019-08-21 02:06] LABS: Absolute Neutrophil Ct (ANC) 3.77 (1.4-6.9); BASOPHIL % 0.4 % (0.0-0.4); Basophil (Absolute #) 0.03 (0-0.4); Eosinophil % 4.3 % (0.00-5.0); Eosinophil (Absolute #) 0.34 (0-0.5); Hematocrit 43.5 % (42-50); Lymphocyte (Absolute #) 2.91 (1.0-4.6); Mean Corpuscular Hemoglobin 31.5 pg (26-32); Mean Corpuscular Hgb Concent. 32.2 g/dl (32-36); Mean Platelet Volume 9.7 fl (7.5-11.0); Monocyte (Absolute #) 0.82 (0.0-1.3); Monocytes % 10.4 % (0.0-12.0); Neutrophil % 47.9 % (36.0-66.0); Platelet Count 316 K/mm3 (150-450); Red Blood Count 4.44 M/mm3 (4.1-5.6); Red Cell Distribution Width 13.6 % (11.5-14.0); White Blood Count 7.9 K/mm3 (4.0-10.5)
[2019-08-21 02:19] LABS: ACETAMINOPHEN < 10 ug/ml (10-30); ALBUMIN 4.9 g/dL (3.5-5.0); ALKALINE PHOSPHATASE 90 U/L (38-126); ANION GAP 15.4 MEQ/L (5-15); BLOOD UREA NITROGEN 9 mg/dL (9-20); CHLORIDE 107 mmol/L (98-107); Calcium 9.7 mg/dL (8.4-10.2); Carbon Dioxide 32 mmol/L (22-30); Creatinine 1 1.01 mg/dL (0.66-1.25); ETHYL ALCOHOL 248 mg/dL (0-10); Glucose 90 mg/dL (74-106); Potassium 4.5 mmol/L (3.5-5.1); SGOT/AST 28 U/L (17-59); SGPT/ALT 17 U/L (0-50); SODIUM 150 mmol/L (137-145); Total Protein 8.2 g/dL (6.3-8.2)
[2019-08-21 03:35] LABS: Amphetamine,Urine NEGATIVE (NEGATIVE); Barbiturate,Urine NEGATIVE (NEGATIVE); Benzodiazepine,Urine NEGATIVE (NEGATIVE); Cocaine,Urine NEGATIVE (NEGATIVE); Methadone,Urine NEGATIVE (NEGATIVE); Opiate,Urine NEGATIVE (NEGATIVE); PCP,Urine NEGATIVE (NEGATIVE); THC,Urine NEGATIVE (NEGATIVE)
[2019-08-21 03:37] LABS: Appearance CLEAR (CLEAR); Bilirubin NEGATIVE (NEGATIVE); Blood NEGATIVE Ery/ul (0-5); Glucose NEGATIVE (NEGATIVE); Ketones NEGATIVE (NEGATIVE); Leukocyte Esterase NEGATIVE (NEGATIVE); Mucus SLIGHT /HPF (NEGATIVE); Nitrite NEGATIVE (NEGATIVE); Protein,Urine Dip NEGATIVE (Negative); Specific Gravity 1.012 (1.005-1.025); Urobilinogen NEGATIVE mg/dL (0-1)
[2019-08-21 06:18] VITALS: BP 119/75; PULSE 69
== END 2019-08-21 05:30 | disposition left against medical advice (07) ==
LOC: ED 01:18
DX: R45.851 Suicidal ideations (principal); F10.129 Alcohol abuse with intoxication, unspecified; F32.9 Major depressive disorder, single episode, unspecified; Z79.899 Other long term (current) drug therapy; F31.9 Bipolar disorder, unspecified; R44.0 Auditory hallucinations
CPT/HCPCS: 36415; 80053; 80307; 81001; 85025; 93005; 99284; G0480; G0481

== ENCOUNTER 2020-06-28 03:02 | Emergency (ER) | payer OTHER ==
[2020-06-28] MEDS ORDERED: XYLOCAINE 1%/Epi 1:100000 MDV 20 ML SUBDERMAL ONE (03:33)
[2020-06-28] MEDS ORDERED: KEFLEX 500 MG PO ONE (03:35)
[2020-06-28] MEDS ORDERED: BACIGUENT PACKET TP ONE (03:35)
[2020-06-28] MEDS ORDERED: KEFLEX 500 MG ONE (03:37)
[2020-06-28] MEDS ORDERED: XYLOCAINE 1%/Epi 1:100000 MDV 20 ML ONE (03:37)
--- NOTE | 2020-06-28 03:37 | ERPHSYRPT ---
- History of Present Illness Time Seen by Provider: 06/28/20 03:30 Source: patient, EMS Exam Limitations: no limitations Patient Subjective Stated Complaint: pt states he cut his arm with a knife. states he was trying to kill himself. denies any new stressors recently Triage Nursing Assessment: pt alert and oriented, answers questions approp. pt cooperative at this time. pt ambulates into er with steady gait noted. respriations nonlabored with lungs cta. skin warm and dry. laceration approx 8cm to lt forearm with minimal bleeding noted. laceration to lt ac apprx 6x2 cm with minimal bleeding noted. Timing/Duration: hour(s) (one ) Severity of Symptoms-Max: moderate Severity of Symptoms-Current: moderate Suicidal thoughts: attempt Associated Symptoms: depressed, suicidal ideation Previous symptoms: same symptoms as today Allergies/Adverse Reactions: tramadol HCl [From Ultram] Adverse Reaction (Mild, Verified 06/28/20 03:23) pt states that they mess with his heart trazodone Adverse Reaction (Mild, Verified 06/28/20 03:23) pt states that it messes with his heart Home Medications: Clonazepam 1 mg PO TID 08/21/19 [History] [place] Carbonate 300 mg [[place] Carbonate 300 MG] 300 mg PO BID 08/21/19 [History] Quetiapine Fumarate 100 mg PO HS 08/21/19 [History] RX: Fluoxetine HCl 40 mg PO DAILY 08/21/19 [History] Hx Tetanus, Diphtheria Vaccination/Date Given: Yes Hx Influenza Vaccination/Date Given: No Hx Pneumococcal Vaccination/Date Given: No Immunizations Up to Date: Yes Travel Risk - International Travel Have you traveled outside of the country in past 3 weeks: No - Coronavirus Screening Are you exhibiting any of the following symptoms?: No Close contact with a COVID-19 positive Pt in past 14-21 Days: No - Past Medical History Pertinent Past Medical History: Yes Neurological History: Migraines, Seizures ENT History: No Pertinent History Cardiac History: No Pertinent History Respiratory History: No Pertinent History Endocrine Medical History: No Pertinent History Musculoskeletal History: No Pertinent History GI Medical History: No Pertinent History History: No Pertinent History Psycho-Social History: Anxiety, Bipolar, Depression Male Reproductive Disorders: No Pertinent History Other Medical History: manic depressive - Past Surgical History Past Surgical History: Yes Neuro Surgical History: No Pertinent History Cardiac: No Pertinent History Respiratory: No Pertinent History Gastrointestinal: No Pertinent History Genitourinary: No Pertinent History Musculoskeletal: No Pertinent History Male Surgical History: No Pertinent History Other Surgical History: spinal tap--meningitis rule out. right lower arm surgery - Social History Smoking Status: Current every day smoker How long have you smoked: 12 Exposure to second hand smoke: Yes Drug Use: marijuana Patient Lives Alone: No Significant Family History: no pertinent family hx - Review of Systems Constitutional: No Symptoms Eyes: No Symptoms Ears, Nose, & Throat: No Symptoms Respiratory: No Symptoms Cardiac: No Symptoms Abdominal/Gastrointestinal: No Symptoms Genitourinary Symptoms: No Symptoms Musculoskeletal: No Symptoms Skin: Other (laceration pain) Neurological: No Symptoms Psychological: Anxiety, Depression, Suicidal Ideations Endocrine: No Symptoms Hematologic/Lymphatic: No Symptoms Immunological/Allergic: No Symptoms All Other Systems: Reviewed and Negative - Nursing Vital Signs Nursing Vital Signs: Initial Vital Signs Pulse Rate 92 H 06/28/20 03:03 Respiratory Rate 18 06/28/20 03:03 Blood Pressure 151/88 06/28/20 03:03 O2 Sat by Pulse Oximetry 99 06/28/20 03:03 Pain Scale Pain Intensity 7 - Physical Exam General Appearance: no apparent distress, alert, anxiety Eyes, Ears, Nose, Throat Exam: normal ENT inspection Neck Exam: normal inspection Respiratory Exam: normal breath sounds Cardiovascular Exam: regular rate/rhythm Gastrointestinal/Abdominal Exam: soft Extremities Exam: evidence of injury (laceration left forearm) Current Suicidality: has suicide plan Neurological Exam: alert, calm, depressed affect Appearance: appropriate appearance, appropriate insight Behavior/Eye Contact/Speech: alert & cooperative Thoughts/Hallucinations: normal thought pattern Skin Exam: normal color SpO2 Interpretation: normal SpO2: 99 O2 Delivery: Room Air Procedures - Laceration/Wound Repair Left Anterior Elbow Wound Location: Left (elbow) Wound Length (cm): 6 Wound's Depth, Shape: superficial, irregular Wound Explored: clean Irrigated: Yes Hibiclens Prep: Yes Anesthesia: local, 1% lidocaine w/ Epi Volume Anesthetic (ccs): 20 Wound Repaired With: sutures Suture Size/Type: 3-0, nylon Number of Sutures: 10 Layer Closure?: No Sterile Dressing Applied?: Yes Splint Applied?: No Sling Applied?: No - Course Nursing assessment & vital signs reviewed: Yes Ordered Tests: Active Orders 24 hr Category Date Time Status ACETAMINOPHEN Stat Lab 06/28/20 04:27 Completed CBC W DIFF Stat Lab 06/28/20 04:27 Completed CMP Stat Lab 06/28/20 04:27 Completed ETHYL ALCOHOL Stat Lab 06/28/20 04:27 Completed ETHYL ALCOHOL Stat Lab 06/28/20 06:07 Received SALICYLATE Stat Lab 06/28/20 04:27 Completed UA W/RFX UR CULTURE Stat Lab 06/28/20 04:29 Completed Urine Triage Profile Stat Lab 06/28/20 04:29 Completed Medication Summary Discontinued Medications Generic Name Dose Route Start Last Admin Trade Name Freq PRN Reason Stop Dose Admin Bacitracin Zinc 0.9 gm 06/28/20 03:35 06/28/20 04:15 Baciguent Packet TP 06/28/20 03:36 0.9 gm STAT ONE Administration Bacitracin Zinc Confirm 06/28/20 04:14 Baciguent Packet Administered 06/28/20 04:15 Dose 1 gm .ROUTE .STK-MED ONE Cephalexin HCl 500 mg 06/28/20 03:35 06/28/20 03:38 Keflex 500 Mg PO 06/28/20 03:36 500 mg STAT ONE Administration Cephalexin HCl Confirm 06/28/20 03:37 Keflex 500 Mg Administered 06/28/20 03:38 Dose 500 mg .ROUTE .STK-MED ONE Clonazepam 1 mg 06/28/20 04:37 06/28/20 04:44 Klonopin 0.5 Mg PO 06/28/20 04:38 1 mg STAT ONE Administration Ibuprofen 400 mg 06/28/20 05:39 06/28/20 05:46 Motrin 400 Mg PO 06/28/20 05:40 400 mg STAT ONE Administration Ibuprofen Confirm 06/28/20 05:46 Motrin 400 Mg Administered 06/28/20 05:47 Dose 400 mg .ROUTE .STK-MED ONE Lidocaine/Epinephrine 20 ml 06/28/20 03:33 06/28/20 03:38 Xylocaine 1%/Epi 1:[id number] Mdv 20 Ml SUBDERMAL 06/28/20 03:34 20 ml STAT ONE Administration Lidocaine/Epinephrine Confirm 06/28/20 03:37 Xylocaine 1%/Epi 1:[id number] Mdv 20 Ml Administered 06/28/20 03:38 Dose 20 ml .ROUTE .STK-MED ONE Nicotine 21 mg 06/28/20 04:37 06/28/20 04:43 Nicoderm Cq 21 Mg TOP 06/28/20 04:38 21 mg STAT ONE Administration Lab/Rad Data: Laboratory Result Diagrams 06/28/20 04:27 06/28/20 04:27 Laboratory Results 06/28/20 06/28/20 06/28/20 Range/Units 04:29 04:29 04:27 WBC (4.0-10.5) K/mm3 RBC (4.1-5.6) M/mm3 Hgb (12.5-18.0) gm/dl Hct (42-50) % MCV (78-100) fl MCH (26-32) pg MCHC (32-36) g/dl RDW (11.5-14.0) % Plt Count (150-450) K/mm3 MPV (7.5-11.0) fl Gran % (36.0-66.0) % Eos # (Auto) (0-0.5) Absolute Lymphs (auto) (1.0-4.6) Absolute Monos (auto) (0.0-1.3) Lymphocytes % (24.0-44.0) % Monocytes % (0.0-12.0) % Eosinophils % (0.00-5.0) % Basophils % (0.0-0.4) % Absolute Granulocytes (1.4-6.9) Basophils # (0-0.4) Sodium 145 (137-145) mmol/L Potassium 3.9 (3.5-5.1) mmol/L Chloride 105 (98-107) mmol/L Carbon Dioxide 27 (22-30) mmol/L Anion Gap 16.7 H (5-15) MEQ/L BUN 12 (9-20) mg/dL Creatinine 1.01 (0.66-1.25) mg/dL Estimated GFR > 60.0 ML/MIN Glucose 100 (74-106) mg/dL Calcium 9.6 (8.4-10.2) mg/dL Total Bilirubin 0.40 (0.2-1.3) mg/dL AST 31 (17-59) U/L ALT 16 (0-50) U/L Alkaline Phosphatase 94 (38-126) U/L Serum Total Protein 8.7 H (6.3-8.2) g/dL Albumin 5.2 H (3.5-5.0) g/dL Urine Color STRAW (YELLOW) Urine Appearance CLEAR (CLEAR) Urine pH 6.0 (5-6) Ur Specific [place] 1.004 (1.005-1.025) Urine Protein NEGATIVE (Negative) Urine Ketones NEGATIVE (NEGATIVE) Urine Blood NEGATIVE (0-5) Alejo/ul Urine Nitrite NEGATIVE (NEGATIVE) Urine Bilirubin NEGATIVE (NEGATIVE) Urine Urobilinogen NEGATIVE (0-1) mg/dL Ur Leukocyte Esterase NEGATIVE (NEGATIVE) Urine WBC (Auto) NONE (0-5) /HPF Urine RBC (Auto) NONE (0-2) /HPF U Epithel Cells (Auto) NONE (FEW) /HPF Urine Bacteria (Auto) NONE (NEGATIVE) /HPF Urine Culture Reflexed NO (NO) Urine Glucose NEGATIVE (NEGATIVE) mg/dL Salicylates < 1.0 L (2-20) mg/dL Urine Opiates Level NEGATIVE (NEGATIVE) Ur Methadone NEGATIVE (NEGATIVE) Acetaminophen 12 (10-30) ug/ml Urine Barbiturates NEGATIVE (NEGATIVE) Ur Phencyclidine (PCP) NEGATIVE (NEGATIVE) Urine Amphetamine NEGATIVE (NEGATIVE) U Benzodiazepine Level NEGATIVE (NEGATIVE) Urine Cocaine NEGATIVE (NEGATIVE) Urine Marijuana (THC) NEGATIVE (NEGATIVE) Ethyl Alcohol 272 H (0-10) mg/dL 06/28/20 Range/Units 04:27 WBC 9.7 (4.0-10.5) K/mm3 RBC 4.79 (4.1-5.6) M/mm3 Hgb 15.6 (12.5-18.0) gm/dl Hct 47.2 (42-50) % MCV 98.5 (78-100) fl MCH 32.6 H (26-32) pg MCHC 33.1 (32-36) g/dl RDW 13.6 (11.5-14.0) % Plt Count 370 (150-450) K/mm3 MPV 9.7 (7.5-11.0) fl Gran % 41.9 (36.0-66.0) % Eos # (Auto) 0.73 H (0-0.5) Absolute Lymphs (auto) 4.20 (1.0-4.6) Absolute Monos (auto) 0.67 (0.0-1.3) Lymphocytes % 43.3 (24.0-44.0) % Monocytes % 6.9 (0.0-12.0) % Eosinophils % 7.5 H (0.00-5.0) % Basophils % 0.4 (0.0-0.4) % Absolute Granulocytes 4.06 (1.4-6.9) Basophils # 0.04 (0-0.4) Sodium (137-145) mmol/L Potassium (3.5-5.1) mmol/L Chloride (98-107) mmol/L Carbon Dioxide (22-30) mmol/L Anion Gap (5-15) MEQ/L BUN (9-20) mg/dL Creatinine (0.66-1.25) mg/dL Estimated GFR ML/MIN Glucose (74-106) mg/dL Calcium (8.4-10.2) mg/dL Total Bilirubin (0.2-1.3) mg/dL AST (17-59) U/L ALT (0-50) U/L Alkaline Phosphatase (38-126) U/L Serum Total Protein (6.3-8.2) g/dL Albumin (3.5-5.0) g/dL Urine Color (YELLOW) Urine Appearance (CLEAR) Urine pH (5-6) Ur Specific [place] (1.005-1.025) Urine Protein (Negative) Urine Ketones (NEGATIVE) Urine Blood (0-5) Alejo/ul Urine Nitrite (NEGATIVE) Urine Bilirubin (NEGATIVE) Urine Urobilinogen (0-1) mg/dL Ur Leukocyte Esterase (NEGATIVE) Urine WBC (Auto) (0-5) /HPF Urine RBC (Auto) (0-2) /HPF U Epithel Cells (Auto) (FEW) /HPF Urine Bacteria (Auto) (NEGATIVE) /HPF Urine Culture Reflexed (NO) Urine Glucose (NEGATIVE) mg/dL Salicylates (2-20) mg/dL Urine Opiates Level (NEGATIVE) Ur Methadone (NEGATIVE) Acetaminophen (10-30) ug/ml Urine Barbiturates (NEGATIVE) Ur Phencyclidine (PCP) (NEGATIVE) Urine Amphetamine (NEGATIVE) U Benzodiazepine Level (NEGATIVE) Urine Cocaine (NEGATIVE) Urine Marijuana (THC) (NEGATIVE) Ethyl Alcohol (0-10) mg/dL - Progress Progress: improved Progress Note: 06/28/20 05:46 Medically cleared for transfer to [facility] when alcohol level down. Turn over to Dr. Bartlett. 06/28/20 06:13 Counseled pt/family regarding: lab results - Departure Departure Disposition: Transfer Clinical Impression: Self-inflicted injury, Severe major depression Condition: Stable Critical Care Time: No Referrals: PAULINE COTA [Primary Care Provider] -
[2020-06-28] MEDS ORDERED: BACIGUENT PACKET ONE (04:14)
[2020-06-28 04:31] LABS: Absolute Neutrophil Ct (ANC) 4.06 (1.4-6.9); BASOPHIL % 0.4 % (0.0-0.4); Basophil (Absolute #) 0.04 (0-0.4); Eosinophil % 7.5 % (0.00-5.0); Eosinophil (Absolute #) 0.73 (0-0.5); Hematocrit 47.2 % (42-50); Hemoglobin 15.6 gm/dl (12.5-18.0); Lymphocytes % 43.3 % (24.0-44.0); Mean Cell Volume 98.5 fl (78-100); Mean Corpuscular Hemoglobin 32.6 pg (26-32); Mean Corpuscular Hgb Concent. 33.1 g/dl (32-36); Mean Platelet Volume 9.7 fl (7.5-11.0); Monocyte (Absolute #) 0.67 (0.0-1.3); Monocytes % 6.9 % (0.0-12.0); Neutrophil % 41.9 % (36.0-66.0); Platelet Count 370 K/mm3 (150-450); Red Blood Count 4.79 M/mm3 (4.1-5.6); Red Cell Distribution Width 13.6 % (11.5-14.0); White Blood Count 9.7 K/mm3 (4.0-10.5)
[2020-06-28 04:32] LABS: Appearance CLEAR (CLEAR); Bilirubin NEGATIVE (NEGATIVE); Blood NEGATIVE Ery/ul (0-5); Glucose NEGATIVE (NEGATIVE); Ketones NEGATIVE (NEGATIVE); Leukocyte Esterase NEGATIVE (NEGATIVE); Nitrite NEGATIVE (NEGATIVE); Protein,Urine Dip NEGATIVE (Negative); Specific Gravity 1.004 (1.005-1.025); Urobilinogen NEGATIVE mg/dL (0-1)
[2020-06-28] MEDS ORDERED: Klonopin 0.5 MG PO ONE (04:37)
[2020-06-28] MEDS ORDERED: Nicoderm CQ 21 MG TOP ONE (04:37)
[2020-06-28 04:44] LABS: ACETAMINOPHEN 12 ug/ml (10-30); ALBUMIN 5.2 g/dL (3.5-5.0); ALKALINE PHOSPHATASE 94 U/L (38-126); ANION GAP 16.7 MEQ/L (5-15); BLOOD UREA NITROGEN 12 mg/dL (9-20); CHLORIDE 105 mmol/L (98-107); Calcium 9.6 mg/dL (8.4-10.2); Carbon Dioxide 27 mmol/L (22-30); Creatinine 1 1.01 mg/dL (0.66-1.25); EST GLOMERULAR FILTRATION RATE > 60.0 ML/MIN; ETHYL ALCOHOL 272 mg/dL (0-10); Glucose 100 mg/dL (74-106); Potassium 3.9 mmol/L (3.5-5.1); SALICYLATE < 1.0 mg/dL (2-20); SGOT/AST 31 U/L (17-59); SGPT/ALT 16 U/L (0-50); SODIUM 145 mmol/L (137-145); Total Protein 8.7 g/dL (6.3-8.2)
[2020-06-28 04:52] LABS: Amphetamine,Urine NEGATIVE (NEGATIVE); Barbiturate,Urine NEGATIVE (NEGATIVE); Benzodiazepine,Urine NEGATIVE (NEGATIVE); Cocaine,Urine NEGATIVE (NEGATIVE); Methadone,Urine NEGATIVE (NEGATIVE); Opiate,Urine NEGATIVE (NEGATIVE); PCP,Urine NEGATIVE (NEGATIVE); THC,Urine NEGATIVE (NEGATIVE)
[2020-06-28] MEDS ORDERED: MOTRIN 400 MG PO ONE (05:39)
[2020-06-28] MEDS ORDERED: MOTRIN 400 MG ONE (05:46)
[2020-06-28] MEDS ORDERED: NORCO 5/325 MG PO ONE (07:13)
[2020-06-28] MEDS ORDERED: NORCO 5/325 MG ONE (07:14)
[2020-06-28 11:20] VITALS: BP 156/98; PULSE 100; O2SAT 98
== END 2020-06-28 12:00 | disposition short-term general hospital (02) ==
LOC: ED 03:02
DX: S51.812A Laceration without foreign body of left forearm, initial encounter (principal); X78.1XXA Intentional self-harm by knife, initial encounter; Y93.89 Activity, other specified; Y92.9 Unspecified place or not applicable; R45.851 Suicidal ideations; F32.9 Major depressive disorder, single episode, unspecified; F41.9 Anxiety disorder, unspecified
CPT/HCPCS: 12004; 36415; 80053; 80307; 81001; 85025; 99285; G0480; A9270-GY

== ENCOUNTER 2021-06-02 22:42 | Emergency (ER) | payer OTHER ==
[2021-06-02 22:47] VITALS: BP 140/99; PULSE 109; O2SAT 98
--- NOTE | 2021-06-02 23:06 | ERPHSYRPT ---
- History of Present Illness Time Seen by Provider: 06/02/21 22:55 Source: patient Exam Limitations: no limitations Patient Subjective Stated Complaint: I cut my arm tonight to relieve some stress Triage Nursing Assessment: pt has superficial laceration to lt lower arm, 8cm in length. No bleeding noted. Pt states, "I'm just in a bad situation and I did it to relieve some stress". Pt denies any desire to harm himself or anyone else. Physician History: Patient is a 31-year-old male presents to our ED via PD for evaluation of a wound to the volar aspect of his left arm. Patient states that he normally cuts himself due to stress. Patient has multiple well-healed scars on his arms from history of cutting. Patient denies homicidal suicidal ideation. Patient otherwise feels well. Patient states that his pain is controlled. He declined pain medication. Patient voices no other complaints or concerns at this time. Timing/Duration: today Severity: mild Modifying Factors: Improves With: nothing Associated Symptoms: denies symptoms Allergies/Adverse Reactions: tramadol HCl [From Ultra] Adverse Reaction (Mild, Verified 06/02/21 22:54) pt states that they mess with his heart trazodone Adverse Reaction (Mild, Verified 06/02/21 22:54) pt states that it messes with his heart Home Medications: No Reportable Medications [No Reported Medications] 06/28/20 [History] Hx Tetanus, Diphtheria Vaccination/Date Given: Yes Hx Influenza Vaccination/Date Given: No Hx Pneumococcal Vaccination/Date Given: No Immunizations Up to Date: Yes Travel Risk - International Travel Have you traveled outside of the country in past 3 weeks: No - Coronavirus Screening Are you exhibiting any of the following symptoms?: No Close contact with a COVID-19 positive Pt in past 14-21 Days: No - Vaccine Status Have you recieved a Covid-19 vaccination: No - Review of Systems Constitutional: No Symptoms, No Fever, No Chills Eyes: No Symptoms Ears, Nose, & Throat: No Symptoms Respiratory: No Symptoms, No Cough, No Dyspnea Cardiac: No Symptoms, No Chest Pain, No Edema, No Syncope Abdominal/Gastrointestinal: No Symptoms, No Abdominal Pain, No Nausea, No Vomiting, No Diarrhea Genitourinary Symptoms: No Symptoms, No Dysuria Musculoskeletal: No Symptoms, No Back Pain, No Neck Pain Skin: No Symptoms, No Rash Neurological: No Symptoms, No Dizziness, No Focal Weakness, No Sensory Changes Psychological: No Symptoms Endocrine: No Symptoms Hematologic/Lymphatic: No Symptoms Immunological/Allergic: No Symptoms All Other Systems: Reviewed and Negative - Past Medical History Pertinent Past Medical History: Yes Neurological History: Migraines, Seizures ENT History: No Pertinent History Cardiac History: No Pertinent History Respiratory History: No Pertinent History Endocrine Medical History: No Pertinent History Musculoskeletal History: No Pertinent History GI Medical History: No Pertinent History History: No Pertinent History Psycho-Social History: Anxiety, Bipolar, Depression, Other Male Reproductive Disorders: No Pertinent History Other Medical History: manic depressive schizophrenia, borderline personality disorder - Past Surgical History Past Surgical History: Yes Neuro Surgical History: No Pertinent History Cardiac: No Pertinent History Respiratory: No Pertinent History Gastrointestinal: No Pertinent History Genitourinary: No Pertinent History Musculoskeletal: No Pertinent History Male Surgical History: No Pertinent History Other Surgical History: spinal tap--meningitis rule out. right lower arm surgery - Social History Smoking Status: Current every day smoker How long have you smoked: 14 yrs Exposure to second hand smoke: Yes Drug Use: marijuana Patient Lives Alone: No Significant Family History: no pertinent family hx - Nursing Vital Signs Nursing Vital Signs: Initial Vital Signs Temperature 99.5 F 06/02/21 22:43 Pulse Rate 109 H 06/02/21 22:43 Respiratory Rate 18 06/02/21 22:43 Blood Pressure 140/99 06/02/21 22:43 O2 Sat by Pulse Oximetry 98 06/02/21 22:43 Pain Scale Pain Intensity 6 - Physical Exam General Appearance: no apparent distress, alert Eye Exam: PERRL/EOMI, eyes nml inspection Ears, Nose, Throat Exam: normal ENT inspection, TMs normal, pharynx normal, moist mucous membranes Neck Exam: normal inspection, non-tender, supple, full range of motion Respiratory Exam: normal breath sounds, lungs clear, airway intact, No respiratory distress Cardiovascular Exam: regular rate/rhythm, normal heart sounds, normal peripheral pulses Gastrointestinal/Abdomen Exam: soft, normal bowel sounds, No tenderness, No mass Back Exam: normal inspection, normal range of motion, No CVA tenderness, No vertebral tenderness Extremity Exam: normal inspection, normal range of motion, pelvis stable, other (There is a superficial laceration volar aspect of left arm measuring 8 cm. Extremities neurovascular intact distally. Compartments are soft. Cap refill less than 2 seconds. Radial pulse palpable. There are multiple areas of healed scars. Patient states the scars are from previous areas of cutt) Neurologic Exam: alert, oriented x 3, cooperative, normal mood/affect, nml cerebellar function, nml station & gait, sensation nml, No motor deficits Skin Exam: normal color, warm, dry, No rash Lymphatic Exam: No adenopathy SpO2 Interpretation: normal SpO2: 98 O2 Delivery: Room Air - Course Nursing assessment & vital signs reviewed: Yes Ordered Tests: Active Orders 24 hr Category Date Time Status Wound Care STAT Care 06/02/21 22:50 Completed - Progress Progress: improved Progress Note: The wound was irrigated by nursing staff. Steri-Strips were applied by nursing staff. Patient neurovascular intact distally post procedure. No indication for further work-up or imaging studies. No indication for antibiotics at this time. Patient agrees to follow-up with his primary care doctor within 48 hours for evaluation. Again patient denies homicidal suicidal ideation. Patient requesting discharge. No indication for further work-up. Portions of this note were created with voice recognition technology. There may be grammatical, spelling, punctuation or sound alike errors 06/02/21 23:18 Counseled pt/family regarding: diagnosis, need for follow-up - Departure Departure Disposition: Home Clinical Impression: Laceration Condition: Stable Critical Care Time: No Referrals: PAULINE COTA [Primary Care Provider] - Follow up/PCP as directed Instructions: Laceration Repair Additional Instructions: Discharge/Care Plan PARAM WEBSTER was seen on 06/02/21 in the Emergency Room. The patient was counseled regarding Diagnosis,Lab results, Imaging studies, need for follow up and when to return to the Emergency Room. Prescriptions given: Discharge Note I have spoken with the patient and/or caregivers. I have explained the patient's condition, diagnosis and treatment plan based on the information available to me at this time. I have answered the patient's and/or caregiver's questions and addressed any concerns. The patient and/or caregivers have as good understanding of the patient's diagnosis, condition and treatment plan as can be expected at this point. The vital signs have been stable. The patient's condition is stable and appropriate for discharge from the emergency department. The patient will pursue further outpatient evaluation with the primary care physician or other designated or consulting physician as outlined in the discharge instructions. The patient and/or caregivers are agreeable to this plan of care and follow-up instructions have been explained in detail. The patient and/or caregivers have received these instruction. The patient/and or caregivers are aware that any significant change in condition or worsening of symptoms should prompt an immediate return to this or the closest emergency department or call 911.
== END 2021-06-02 23:12 | disposition home or self-care (01) ==
LOC: ED 22:42
DX: S51.812A Laceration without foreign body of left forearm, initial encounter (principal); W45.8XXA Other foreign body or object entering through skin, initial encounter; Z72.0 Tobacco use
CPT/HCPCS: 99283

== ENCOUNTER 2023-12-24 08:30 | Emergency (ER) | payer BC, OTHER ==
[2023-12-24 08:46] VITALS: BP 135/78; PULSE 87; RESP 18; TEMP 97; O2SAT 95
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
[2023-12-24] MEDS ORDERED: TORAdol 30 mg Injection ONE (08:52)
[2023-12-24] MEDS: TORAdol 30 mg Injection IM ONE (08:53)
--- NOTE | 2023-12-24 09:37 | XRAY ---
Indication: Pain following fall. Comparison: None 3 view right hand obtained. Query old distal 5th metacarpal fracture. No other bony, articular, or soft tissue abnormalities.
--- NOTE | 2023-12-24 09:37 | XRAY ---
Indication: Pain following fall. Comparison: June 07, 2017 3 view right wrist again demonstrates normal bones, articulation, and soft tissues.
== END 2023-12-24 10:04 | disposition home or self-care (01) ==
LOC: ED 08:30
DX: S60.221A Contusion of right hand, initial encounter (principal); S63.501A Unspecified sprain of right wrist, initial encounter; V18.4XXA Pedal cycle driver injured in noncollision transport accident in traffic accident, initial encounter; Y93.55 Activity, bike riding; Z72.0 Tobacco use; Z59.82 Transportation insecurity
CPT/HCPCS: 73110; 73130; 96372; 99283; A4570; J1885

== ENCOUNTER 2024-08-19 07:22 | Emergency (ER) | payer BC, OTHER ==
[2024-08-19 07:42] VITALS: PULSE 96; RESP 18; TEMP 98.8
[2024-08-19] MEDS ORDERED: TYLENOL 325 MG ONE (07:48)
[2024-08-19] MEDS ORDERED: TORAdol 30 mg Injection ONE (07:48)
[2024-08-19] MEDS ORDERED: ZOFRAN ODT 4 MG ONE (07:48)
[2024-08-19] MEDS: ZOFRAN ODT 4 MG PO ONE (07:50)
[2024-08-19] MEDS: TYLENOL 325 MG PO ONE (07:51)
--- NOTE | 2024-08-19 07:51 | ERPHSYRPT ---
- History of Present Illness Time Seen by Provider: 08/19/24 07:45 Source: patient Exam Limitations: no limitations Patient Subjective Stated Complaint: C/O cough, fever, body aches, headache for few days Triage Nursing Assessment: Patient ambulated back to ER without difficulties. He is alert and oriented. NO SOB. Skine tone normal. COREY FERREIRA. Physician History: Patient is a 34-year-old male history of bronchitis, current smoker presents to emergency department for evaluation of cough subjective fever body aches frontal headache slight nausea. Patient gave himself an albuterol nebulizer treatment at home prior to arrival. Symptoms started approximately 3 days ago. No neck pain no photophobia patient currently afebrile. No meningeal signs. No associated nausea vomiting no diaphoresis. No diarrhea no rash. No chest pain no shortness of breath. Symptoms started about 3 days ago. Symptoms are constant. No specific worsening or improving factors. No obvious sick contacts. Patient otherwise feels well. Patient voices no other complaints or concerns at this time. Portions of this note were created with voice recognition technology. There may be grammatical, spelling, punctuation or sound alike errors Timing/Duration: day(s) (3 days) Severity: moderate Modifying Factors: Improves With: nothing Associated Symptoms: denies symptoms Allergies/Adverse Reactions: tramadol HCl [From Ultram] Adverse Reaction (Mild, Verified 08/19/24 07:32) pt states that they mess with his heart trazodone Adverse Reaction (Mild, Verified 08/19/24 07:32) pt states that it messes with his heart Home Medications: Buprenorphine HCl/Naloxone HCl [Suboxone 8 mg-2 mg Sl Film] 1 film PO DAILY 08/19/24 [History] Paliperidone [Paliperidone ER] 6 mg PO DAILY 08/19/24 [History] Quetiapine Fumarate [Seroquel] 50 mg PO HS 08/19/24 [History] Ropinirole HCl 1 mg PO DAILY 08/19/24 [History] Hx Tetanus, Diphtheria Vaccination/Date Given: Yes Hx Influenza Vaccination/Date Given: No Hx Pneumococcal Vaccination/Date Given: No Immunizations Up to Date: Yes Travel Risk - International Travel Have you traveled outside of the country in past 3 weeks: No - Emerging Infectious Disease Are you exhibiting symptoms associated with any current EIDs: Yes Symptoms: Cough: New Onset, Fever, Headaches/Body Aches/ - Review of Systems Constitutional: No Symptoms, No Fever, No Chills Eyes: No Symptoms Ears, Nose, & Throat: No Symptoms Respiratory: No Symptoms, No Cough, No Dyspnea Cardiac: No Symptoms, No Chest Pain, No Edema, No Syncope Abdominal/Gastrointestinal: No Symptoms, No Abdominal Pain, No Nausea, No Vomiting, No Diarrhea Genitourinary Symptoms: No Symptoms, No Dysuria Musculoskeletal: No Symptoms, No Back Pain, No Neck Pain Skin: No Symptoms, No Rash Neurological: No Symptoms, No Dizziness, No Focal Weakness, No Sensory Changes Psychological: No Symptoms Endocrine: No Symptoms Hematologic/Lymphatic: No Symptoms Immunological/Allergic: No Symptoms All Other Systems: Reviewed and Negative - Past Medical History Pertinent Past Medical History: Yes Neurological History: Migraines, Seizures ENT History: No Pertinent History Cardiac History: No Pertinent History Respiratory History: No Pertinent History Endocrine Medical History: No Pertinent History Musculoskeletal History: No Pertinent History GI Medical History: No Pertinent History History: No Pertinent History Psycho-Social History: Anxiety, Bipolar, Depression, Other Male Reproductive Disorders: No Pertinent History Other Medical History: manic depressive schizophrenia, borderline personality disorder - Past Surgical History Past Surgical History: Yes Neuro Surgical History: No Pertinent History Cardiac: No Pertinent History Respiratory: No Pertinent History Gastrointestinal: No Pertinent History Genitourinary: No Pertinent History Musculoskeletal: No Pertinent History Male Surgical History: No Pertinent History Other Surgical History: spinal tap--meningitis rule out. right lower arm surgery Significant Family History: no pertinent family hx - Social History Smoking Status: Current every day smoker Exposure to second hand smoke: Yes Drug Use: marijuana - Social Determinants of Health Will the patient participate in the screening: Declined to provide - Nursing Vital Signs Nursing Vital Signs: Initial Vital Signs Blood Pressure 128/79 08/19/24 07:31 O2 Sat by Pulse Oximetry 96 08/19/24 07:31 Pain Scale Pain Intensity 5 - Physical Exam General Appearance: no apparent distress, alert Eye Exam: PERRL/EOMI, eyes nml inspection Ears, Nose, Throat Exam: normal ENT inspection, TMs normal, pharynx normal, moist mucous membranes Neck Exam: normal inspection, non-tender, supple, full range of motion Respiratory Exam: normal breath sounds, lungs clear, rhonchi (Slightly coarse breath sounds, no respiratory distress), No respiratory distress Cardiovascular Exam: regular rate/rhythm, normal heart sounds, normal peripheral pulses Gastrointestinal/Abdomen Exam: soft, normal bowel sounds, No tenderness, No mass Back Exam: normal inspection, normal range of motion, No CVA tenderness, No vertebral tenderness Extremity Exam: normal inspection, normal range of motion, pelvis stable Neurologic Exam: alert, oriented x 3, cooperative, normal mood/affect, nml cerebellar function, nml station & gait, sensation nml, No motor deficits Skin Exam: normal color, warm, dry, No rash Lymphatic Exam: No adenopathy SpO2 Interpretation: normal SpO2: 96 O2 Delivery: Room Air - Course Nursing assessment & vital signs reviewed: Yes Ordered Tests: Medication Summary Discontinued Medications Generic Name Dose Route Start Last Admin Trade Name Freq PRN Reason Stop Dose Admin Acetaminophen 975 mg 08/19/24 07:44 08/19/24 07:51 Acetaminophen 325 Mg Tablet PO 08/19/24 07:45 975 mg STAT ONE Administration Acetaminophen Confirm 08/19/24 07:48 Acetaminophen 325 Mg Tablet Administered 08/19/24 07:49 Dose 975 mg .ROUTE .STK-MED ONE Ketorolac Tromethamine 60 mg 08/19/24 07:44 08/19/24 07:52 Ketorolac Tromethamine 30 Mg/Ml Inj IM 08/19/24 07:45 60 mg STAT ONE Administration Ketorolac Tromethamine Confirm 08/19/24 07:48 Ketorolac Tromethamine 30 Mg/Ml Inj Administered 08/19/24 07:49 Dose 60 mg .ROUTE .STK-MED ONE Ondansetron HCl 4 mg 08/19/24 07:45 08/19/24 07:50 Zofran 4 Mg/Udtablet Orally Disintegrating PO 08/19/24 07:46 4 mg STAT ONE Administration Ondansetron HCl Confirm 08/19/24 07:48 Zofran 4 Mg/Udtablet Orally Disintegrating Administered 08/19/24 07:49 Dose 4 mg .ROUTE .STK-MED ONE Prednisone 60 mg 08/19/24 08:35 08/19/24 08:37 Prednisone 20 Mg Tablet PO 08/19/24 08:36 60 mg STAT ONE Administration Prednisone Confirm 08/19/24 08:37 Prednisone 20 Mg Tablet Administered 08/19/24 08:38 Dose 60 mg .ROUTE .STK-MED ONE Lab/Rad Data: Laboratory Results 08/19/24 08/19/24 Range/Units 07:43 07:43 Influenza Type A Ag POSITIVE A (NEGATIVE) Influenza Type B Ag NEGATIVE (NEGATIVE) RSV (PCR) NEGATIVE (NEGATIVE) SARS-CoV-2 (PCR) NEGATIVE (NEGATIVE) Group A Strep Antibody NOT DETECTED (NEGATIVE) - Progress Progress: improved Progress Note: 34-year-old male current smoker history of bronchitis presents to our ED for evaluation of viral-like symptoms including subjective fever cough body aches frontal headache mild nausea. Physical exam reveals mildly coarse breath sounds. No respiratory distress. Exam otherwise within normal limits. Workup reveals influenza A. Patient received Toradol, Tylenol and Zofran. Headache nausea resolved. Patient received a dose of prednisone in our ED for the coarse breath sounds. A prescription for prednisone and azithromycin forwarded to patient's pharmacy. Patient was also provided with a work note. Patient to be off for 1 week. He may return once his symptoms resolve and he is fever free without antipyretic for 24 hours. Patient states he feels much better. He is ready for discharge. He voices no other complaints or concerns at this time. Patient advised to follow-up with his primary care doctor within 48 hours for reevaluation. Portions of this note were created with voice recognition technology. There may be grammatical, spelling, punctuation or sound alike errors Complexity of problem addressed is moderate acute complicated. No critical care time. Complexity of data reviewed and analyzed is moderate. Test ordered test reviewed results analyzed and correlated clinically with history and physical exam. Risk of complication and or risk of morbidity/mortality of patient management is moderate. A prescription for prednisone and azithromycin forwarded to patient's pharmacy. Vital stable. Time spent to discharge patient is approximately 15 minutes. Plan of care established for shared decision making. No social determinants of health present to impede follow-up. Portions of this note were created with voice recognition technology. There may be grammatical, spelling, punctuation or sound alike errors 08/19/24 08:39 Counseled pt/family regarding: lab results, diagnosis, need for follow-up - Departure Departure Disposition: Home Clinical Impression: Influenza A, Bronchitis Condition: Stable Critical Care Time: No Referrals: DOCTOR,NO FAMILY [Primary Care Provider] - Follow up/PCP as directed VIOLETA ANN MD [ACTIVE STAFF] - Follow up/PCP as directed Instructions: Bronchitis in adults - ED discharge instructions, Flu in adults - ED discharge instructions Additional Instructions: Discharge/Care Plan PARAM WEBSTER was seen on 08/19/24 in the Emergency Room. The patient was counseled regarding Diagnosis,Lab results, Imaging studies, need for follow up and when to return to the Emergency Room. Prescriptions given: Discharge Note I have spoken with the patient and/or caregivers. I have explained the patient's condition, diagnosis and treatment plan based on the information available to me at this time. I have answered the patient's and/or caregiver's questions and addressed any concerns. The patient and/or caregivers have as good understanding of the patient's diagnosis, condition and treatment plan as can be expected at this point. The vital signs have been stable. The patient's condition is stable and appropriate for discharge from the emergency department. The patient will pursue further outpatient evaluation with the primary care physician or other designated or consulting physician as outlined in the discharge instructions. The patient and/or caregivers are agreeable to this plan of care and follow-up instructions have been explained in detail. The patient and/or caregivers have received these instruction. The patient/and or caregivers are aware that any significant change in condition or worsening of symptoms should prompt an immediate return to this or the closest emergency department or call 911. Prescriptions: Prednisone 10 mg [Deltasone 10 mg] 40 mg PO DAILY 3 Days #12 tablet Azithromycin 250 mg [Zithromax 250 MG TABLET] 250 mg PO ZPACK #6 tablet
[2024-08-19] MEDS: TORAdol 30 mg Injection IM ONE (07:52)
[2024-08-19 08:20] LABS: INFLUENZA B NEGATIVE (NEGATIVE); RESPIRATORY SYNCTIAL VIRUS NEGATIVE (NEGATIVE); SARS-CoV-2 Xpert Express NEGATIVE (NEGATIVE)
[2024-08-19 08:23] LABS: INFLUENZA A POSITIVE (NEGATIVE)
[2024-08-19 08:31] VITALS: BP 109/84
[2024-08-19 08:37] VITALS: O2SAT 96
[2024-08-19] MEDS ORDERED: DELTASONE 20 MG ONE (08:37)
[2024-08-19] MEDS: DELTASONE 20 MG PO ONE (08:37)
== END 2024-08-19 08:45 | disposition home or self-care (01) ==
LOC: ED 07:22
DX: J10.1 Influenza due to other identified influenza virus with other respiratory manifestations (principal); J40 Bronchitis, not specified as acute or chronic; R05.1 Acute cough; M79.10 Myalgia, unspecified site; R51.9 Headache, unspecified; R11.0 Nausea; Z79.52 Long term (current) use of systemic steroids; Z79.891 Long term (current) use of opiate analgesic; Z79.899 Other long term (current) drug therapy; Z72.0 Tobacco use
CPT/HCPCS: 0241U; 87651; 96372; 99283; 99284; J1885; Q0162; A9270-GY

== ENCOUNTER 2025-03-17 12:49 | Emergency (ER) | payer OTHER ==
[2025-03-17 12:53] VITALS: TEMP 97
--- NOTE | 2025-03-17 12:54 | ERPHSYRPT ---
- History of Present Illness Time Seen by Provider: 03/17/25 12:54 Source: patient Exam Limitations: no limitations Physician History: This is a 34-year-old white male patient brought to the emergency department by law enforcement secondary to self-inflicted harm and suicidal thoughts. Patient states in the last several days he has been upset with his mom and he is dealing with a lot in the tends to cut himself. Today, he has a couple of very deep cuts to his right forearm and a friend contacted law enforcement who brought him into the emergency department to be evaluated. Patient has been emergently detained. Patient smells of alcohol patient states he quit his Suboxone 5 days ago. He also states his tetanus status is up-to-date. Patient has multiple psychiatric issues including anxiety, bipolar disorder, depression, manic depressive schizophrenia and borderline personality disorder Severity of Symptoms-Max: moderate Severity of Symptoms-Current: moderate Context related to: living circumstances, other (Upset with mother) Suicidal thoughts: gesture (Self-inflicted cutting), other Associated Symptoms: anxiety, depressed, suicidal ideation, No hallucinating Previous symptoms: same symptoms as today, no recent treatment Allergies/Adverse Reactions: tramadol HCl [From [facility]] Adverse Reaction (Mild, Verified 03/17/25 12:54) pt states that they mess with his heart trazodone Adverse Reaction (Mild, Verified 03/17/25 12:54) pt states that it messes with his heart Home Medications: Buprenorphine HCl/Naloxone HCl [Buprenorphine-Nalox 8-2 mg Tab] 8 mg PO DAILY 03/17/25 [History] Hx Tetanus, Diphtheria Vaccination/Date Given: Yes Hx Influenza Vaccination/Date Given: No Hx Pneumococcal Vaccination/Date Given: No Travel Risk - International Travel Have you traveled outside of the country in past 3 weeks: No - Emerging Infectious Disease Are you exhibiting symptoms associated with any current EIDs: No Symptoms: Cough: New Onset, Fever, Headaches/Body Aches/ - Past Medical History Pertinent Past Medical History: Yes Neurological History: Migraines, Seizures ENT History: No Pertinent History Cardiac History: No Pertinent History Respiratory History: No Pertinent History Endocrine Medical History: No Pertinent History Musculoskeletal History: No Pertinent History GI Medical History: No Pertinent History History: No Pertinent History Psycho-Social History: Anxiety, Bipolar, Depression, Other Male Reproductive Disorders: No Pertinent History Other Medical History: manic depressive schizophrenia, borderline personality disorder - Past Surgical History Past Surgical History: Yes Neuro Surgical History: No Pertinent History Cardiac: No Pertinent History Respiratory: No Pertinent History Gastrointestinal: No Pertinent History Genitourinary: No Pertinent History Musculoskeletal: No Pertinent History Male Surgical History: No Pertinent History Other Surgical History: spinal tap--meningitis rule out. right lower arm surgery Significant Family History: no pertinent family hx - Social History Smoking Status: Current every day smoker Exposure to second hand smoke: Yes Drug Use: marijuana - Social Determinants of Health Will the patient participate in the screening: Declined to provide - Review of Systems Constitutional: No Symptoms Eyes: No Symptoms Ears, Nose, & Throat: No Symptoms Respiratory: No Symptoms Cardiac: No Symptoms Abdominal/Gastrointestinal: No Symptoms Genitourinary Symptoms: No Symptoms Musculoskeletal: No Symptoms Skin: Other (2 separate skin lacerations (self-inflicted) total of 8.5 cm in length of lacerations) Psychological: Alcohol Abuse, Anxiety, Depression, Suicidal Ideations, Other (History of opiate abuse) Endocrine: No Symptoms Hematologic/Lymphatic: No Symptoms Immunological/Allergic: No Symptoms All Other Systems: Reviewed and Negative - Nursing Vital Signs Nursing Vital Signs: Initial Vital Signs Temperature 97 F 03/17/25 12:51 Pulse Rate 124 H 03/17/25 12:51 Respiratory Rate 20 03/17/25 12:51 Blood Pressure 139/87 03/17/25 12:51 O2 Sat by Pulse Oximetry 99 03/17/25 12:51 Pain Scale Pain Intensity 0 - Physical Exam General Appearance: mild distress, alert, anxiety, thin Eyes, Ears, Nose, Throat Exam: normal ENT inspection, moist mucous membranes Neck Exam: normal inspection, non-tender, supple, full range of motion Respiratory Exam: normal breath sounds, lungs clear, airway intact, No chest tenderness, No respiratory distress Cardiovascular Exam: tachycardia Gastrointestinal/Abdominal Exam: soft, normal bowel sounds, No tenderness Neurological Exam: alert, 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 The length total 8.5 cm. The more proximal skin laceration is transversely oriented and measures 7 cm x 2 cm. The more distal forearm skin laceration measures 1.5 cm in length and is actually oriented. Both are on the dorsal aspect of the right forearm) SpO2 Interpretation: normal SpO2: 99 O2 Delivery: Room Air Procedures - Laceration/Wound Repair Right Distal Dorsal Arm Time of Procedure: 13:15 Wound Location: Right, lower arm Wound Length (cm): 8.5 Wound's Depth, Shape: linear, into subcut Wound Explored: clean (Wound explored to the base in a bloodless field and no foreign body noted) Irrigated: Yes Hibiclens Prep: Yes Anesthesia: 1% Lidocaine Volume Anesthetic (ccs): 10 Wound Repaired With: [place] (A total of 9 candice were placed. 7 in the right mid forearm skin laceration and 2 used to approximate the distal skin laceration) Progress: 03/17/25 13:41 There were no complications. Patient tolerated the procedure well. Repair sites were cleaned and dried. Bacitracin ointment and bandages were placed about the skin laceration repair sites. - Course Nursing assessment & vital signs reviewed: Yes EKG Interpreted by Me: RATE (102), Sinus Tach, Right [place] Deviation (Borderline), NORMAL INTERVALS, NORMAL QRS, Other (No acute ischemia. QTc is 437) Ordered Tests: Active Orders 24 hr Category Date Time Status EKG-ER Only STAT Care 03/17/25 13:01 Active IV Insertion STAT Care 03/17/25 14:15 Active ACETAMINOPHEN Stat Lab 03/17/25 13:16 Completed CBC W DIFF Stat Lab 03/17/25 13:16 Completed CMP Stat Lab 03/17/25 13:16 Completed ETHYL ALCOHOL Stat Lab 03/17/25 13:16 Completed ETHYL ALCOHOL Stat Lab 03/17/25 18:12 Completed ETHYL ALCOHOL Stat Lab 03/18/25 00:10 Completed SALICYLATE Stat Lab 03/17/25 13:16 Completed UA W/RFX UR CULTURE Stat Lab 03/17/25 14:55 Completed Urine Triage Profile Stat Lab 03/17/25 14:55 Completed Medication Summary Generic Name Dose Route Start Last Admin Trade Name Freq PRN Reason Stop Dose Admin Sodium Chloride 1,000 mls @ 100 mls/hr 03/17/25 18:15 03/17/25 18:34 Sodium Chloride 0.9% 1000 Ml IV 04/16/25 18:14 100 mls/hr .Q10H KARENA Administration Nicotine 14 mg 03/17/25 13:30 03/17/25 13:36 Nicotine 14 Mg/Patch Patch TOP 04/16/25 13:29 14 mg Q24H KARENA Administration Discontinued Medications Generic Name Dose Route Start Last Admin Trade Name Frecee PRN Reason Stop Dose Admin Hydrocodone Bitart/Acetaminophen 1 tab 03/17/25 21:41 03/17/25 21:47 Hydrocodone/Apap 5/325 1 Tab Tablet PO 03/17/25 21:42 1 tab STAT ONE Administration Hydrocodone Bitart/Acetaminophen Confirm 03/17/25 21:46 Hydrocodone/Apap 5/325 1 Tab Tablet Administered 03/17/25 21:47 Dose 1 tab .ROUTE .STK-MED ONE Bacitracin Zinc 0.9 each 03/17/25 13:13 03/17/25 13:16 Bacitracin Packet 1 Each Pckt TP 03/17/25 13:14 1 each STAT ONE Administration Bacitracin Zinc Confirm 03/17/25 13:16 Bacitracin Packet 1 Each Pckt Administered 03/17/25 13:17 Dose 1 each .ROUTE .STK-MED ONE Sodium Chloride 1,000 mls @ 999 mls/hr 03/17/25 14:15 03/17/25 15:40 Sodium Chloride 0.9% 1000 Ml IV 03/17/25 15:15 Infused .Q1H1M STA Infusion Sodium Chloride Confirm 03/17/25 14:25 Sodium Chloride 0.9% 1000 Ml Administered 03/17/25 14:26 Dose 1,000 mls @ ud .ROUTE .STK-MED ONE Sodium Chloride 500 mls @ 500 mls/hr 03/17/25 15:30 03/17/25 16:20 Sodium Chloride 0.9% 500 Ml IV 03/17/25 16:29 Infused .Q1H ONE Infusion Sodium Chloride Confirm 03/17/25 15:35 Sodium Chloride 0.9% 500 Ml Administered 03/17/25 15:36 Dose 500 mls @ ud IV .STK-MED ONE Lorazepam 1 mg 03/17/25 15:44 03/17/25 16:03 Lorazepam 2 Mg/1 Ml 2 Mg Vial IV 03/17/25 15:45 1 mg STAT ONE Administration Morphine Sulfate 2 mg 03/17/25 15:44 03/17/25 16:03 Morphine Sulfate 2 Mg/Ml Inj IV 03/17/25 15:45 2 mg STAT ONE Administration Morphine Sulfate Confirm 03/17/25 16:00 Morphine Sulfate 2 Mg/Ml Inj Administered 03/17/25 16:01 Dose 2 mg .ROUTE .STK-MED ONE Ondansetron HCl 4 mg 03/17/25 14:15 03/17/25 14:41 Ondansetron Hcl 4 Mg/2 Ml Vial IV 03/17/25 14:16 4 mg STAT ONE Administration Ondansetron HCl Confirm 03/17/25 14:25 Ondansetron Hcl 4 Mg/2 Ml Vial Administered 03/17/25 14:26 Dose 4 mg .ROUTE .STK-MED ONE Lab/Rad Data: Laboratory Result Diagrams 03/17/25 13:16 03/17/25 13:16 Laboratory Results 03/18/25 03/17/25 03/17/25 Range/Units 00:10 18:12 14:55 WBC (4.23-9.07) x10^3/uL RBC (4.63-6.08) x10^6/uL Hgb (13.7-17.5) g/dL Hct (40.1-51.0) % MCV (79.0-92.2) fL MCH (25.7-32.2) pg MCHC (32.3-36.5) g/dL RDW (11.6-14.4) % Plt Count (163-337) x10^3/uL MPV (9.4-12.4) fL Gran % (34.0-67.9) % Immature Gran % (Auto) (0.001-0.429) % Nucleat RBC Rel Count (0.00-0.2) % Eos # (Auto) (0.04-0.54) x10^3/uL Immature Gran # (Auto) (0.001-0.031) x10^3u/L Absolute Lymphs (auto) (1.32-3.57) x10^3/uL Absolute Monos (auto) (0.30-0.82) x10^3/uL Absolute Nucleated RBC (0.00-0.012) x10^3u/L Lymphocytes % (21.8-53.1) % Monocytes % (5.3-12.2) % Eosinophils % (0.8-7.0) % Basophils % (0.2-1.2) % Absolute Granulocytes (1.78-5.38) x10^3/uL Basophils # (0.01-0.08) x10^3/uL Sodium (135-145) mmol/L Potassium (3.5-5.1) mmol/L Chloride (98-107) mmol/L Carbon Dioxide (22-30) mmol/L Anion Gap (5-15) MEQ/L BUN (9-20) mg/dL Creatinine (0.66-1.25) mg/dL Estimated GFR ML/MIN Glucose (74-106) mg/dL Calcium (8.4-10.2) mg/dL Total Bilirubin (0.2-1.3) mg/dL AST (17-59) U/L ALT (0-50) U/L Alkaline Phosphatase (38-126) U/L Serum Total Protein (6.3-8.2) g/dL Albumin (3.5-5.0) g/dL Urine Color (Yellow) Urine Appearance (Clear) Urine pH (4.6-8.0) Ur Specific [place] (1.005-1.030) Urine Protein (Negative) Urine Glucose (UA) (Negative) mg/dL Urine Ketones (Negative) Urine Blood (Negative) Urine Nitrite (Negative) Urine Bilirubin (Negative) Urine Urobilinogen (0.2) mg/dL Ur Leukocyte Esterase (Negative) U Hyaline Cast (Auto) (0-2) /LPF Urine Microscopic RBC (0-5) /HPF Urine Microscopic WBC (0-5) /HPF Ur Epithelial Cells (None Seen) /HPF Urine Bacteria (None Seen) /HPF Urine Culture Reflexed (NO) Salicylates (2-20) mg/dL Urine Opiates Level NEGATIVE (NEGATIVE) Ur Methadone NEGATIVE (NEGATIVE) Acetaminophen (10-30) ug/ml Urine Barbiturates NEGATIVE (NEGATIVE) Ur Phencyclidine (PCP) NEGATIVE (NEGATIVE) Urine Amphetamine NEGATIVE (NEGATIVE) U Benzodiazepine Level NEGATIVE (NEGATIVE) Urine Cocaine NEGATIVE (NEGATIVE) Urine Marijuana (THC) POSITIVE A (NEGATIVE) Ethyl Alcohol < 10 165 H (0-10) mg/dL 03/17/25 03/17/25 03/17/25 Range/Units 14:55 13:16 13:16 WBC 12.2 H (4.23-9.07) x10^3/uL RBC 4.92 (4.63-6.08) x10^6/uL Hgb 15.2 (13.7-17.5) g/dL Hct 45.6 (40.1-51.0) % MCV 92.7 H (79.0-92.2) fL MCH 30.9 (25.7-32.2) pg MCHC 33.3 (32.3-36.5) g/dL RDW 13.5 (11.6-14.4) % Plt Count 487 H (163-337) x10^3/uL MPV 9.1 L (9.4-12.4) fL Gran % 70.7 H (34.0-67.9) % Immature Gran % (Auto) 0.3 (0.001-0.429) % Nucleat RBC Rel Count 0.0 (0.00-0.2) % Eos # (Auto) 0.19 (0.04-0.54) x10^3/uL Immature Gran # (Auto) 0.04 H (0.001-0.031) x10^3u/L Absolute Lymphs (auto) 2.40 (1.32-3.57) x10^3/uL Absolute Monos (auto) 0.88 H (0.30-0.82) x10^3/uL Absolute Nucleated RBC 0.00 (0.00-0.012) x10^3u/L Lymphocytes % 19.7 L (21.8-53.1) % Monocytes % 7.2 (5.3-12.2) % Eosinophils % 1.6 (0.8-7.0) % Basophils % 0.5 (0.2-1.2) % Absolute Granulocytes 8.60 H (1.78-5.38) x10^3/uL Basophils # 0.06 (0.01-0.08) x10^3/uL Sodium 149 H (135-145) mmol/L Potassium 4.1 (3.5-5.1) mmol/L Chloride 109 H (98-107) mmol/L Carbon Dioxide 24 (22-30) mmol/L Anion Gap 20.3 H (5-15) MEQ/L BUN 5 L (9-20) mg/dL Creatinine 0.86 (0.66-1.25) mg/dL Estimated GFR 118.0 ML/MIN Glucose 95 (74-106) mg/dL Calcium 9.7 (8.4-10.2) mg/dL Total Bilirubin 0.40 (0.2-1.3) mg/dL AST 36 (17-59) U/L ALT 19 (0-50) U/L Alkaline Phosphatase 116 (38-126) U/L Serum Total Protein 8.9 H (6.3-8.2) g/dL Albumin 5.3 H (3.5-5.0) g/dL Urine Color Yellow (Yellow) Urine Appearance Clear (Clear) Urine pH 6.5 (4.6-8.0) Ur Specific [place] <=1.005 (1.005-1.030) Urine Protein Negative (Negative) Urine Glucose (UA) Negative (Negative) mg/dL Urine Ketones Negative (Negative) Urine Blood Negative (Negative) Urine Nitrite Negative (Negative) Urine Bilirubin Negative (Negative) Urine Urobilinogen 0.2 (0.2) mg/dL Ur Leukocyte Esterase Negative (Negative) U Hyaline Cast (Auto) NONE SEEN (0-2) /LPF Urine Microscopic RBC 0-2 (0-5) /HPF Urine Microscopic WBC 0-2 (0-5) /HPF Ur Epithelial Cells None Seen (None Seen) /HPF Urine Bacteria Rare A (None Seen) /HPF Urine Culture Reflexed NO (NO) Salicylates < 1.0 L (2-20) mg/dL Urine Opiates Level (NEGATIVE) Ur Methadone (NEGATIVE) Acetaminophen < 10 L (10-30) ug/ml Urine Barbiturates (NEGATIVE) Ur Phencyclidine (PCP) (NEGATIVE) Urine Amphetamine (NEGATIVE) U Benzodiazepine Level (NEGATIVE) Urine Cocaine (NEGATIVE) Urine Marijuana (THC) (NEGATIVE) Ethyl Alcohol 316 H (0-10) mg/dL - Progress Progress: improved, re-examined Progress Note: 03/17/25 13:42 My medical decision making and the assignment of at least moderate complexity and possible high complexity is based on review the patient's past medical history, review the patient's medication list, reviewed patient drug allergy list, history present illness and physical findings on exam nation. The workup in this patient includes twelve-lead EKG, alcohol level, acetaminophen level, salicylate level, CBC, CMP, urinalysis, urine drug triage. Differential diagnosis includes was not limited to anxiety, depression, bipolar disorder, suicidal ideation, skin lacerationsself inflicted 03/18/25 03:06 [facility] Counseled pt/family regarding: lab results, diagnosis Medical Desision Making - Risk of complications The pt has a high risk of morbidity or mortality based on: Decision regarding hospitilization or escalation of hosp level of care - Departure Departure Disposition: Transfer Clinical Impression: Suicidal ideation, Suicide gesture Condition: Stable Critical Care Time: No Referrals: DOCTOR,NO FAMILY [Primary Care Provider, UNKNOWN] - Follow up/PCP as directed
[2025-03-17] MEDS ORDERED: BACIGUENT PACKET ONE (13:16)
[2025-03-17] MEDS: BACIGUENT PACKET TP ONE (13:16)
[2025-03-17 13:21] LABS: BASOPHIL % 0.5 % (0.2-1.2); Basophil (Absolute #) 0.06 x10^3/uL (0.01-0.08); Eosinophil (Absolute #) 0.19 x10^3/uL (0.04-0.54); Hematocrit 45.6 % (40.1-51.0); Hemoglobin 15.2 g/dL (13.7-17.5); IMMATURE GRAN # 0.04 x10^3u/L (0.001-0.031); IMMATURE GRAN % 0.3 % (0.001-0.429); Lymphocyte (Absolute #) 2.40 x10^3/uL (1.32-3.57); Mean Corpuscular Hemoglobin 30.9 pg (25.7-32.2); Mean Corpuscular Hgb Concent. 33.3 g/dL (32.3-36.5); Monocyte (Absolute #) 0.88 x10^3/uL (0.30-0.82); NUCLEATED RBC # 0.00 x10^3u/L (0.00-0.012); NUCLEATED RBC % 0.0 % (0.00-0.2); Platelet Count 487 x10^3/uL (163-337); Red Blood Count 4.92 x10^6/uL (4.63-6.08); White Blood Count 12.2 x10^3/uL (4.23-9.07)
[2025-03-17] MEDS: NICODERM CQ 14 MG TOP SCH (13:36)
[2025-03-17 13:39] LABS: Calcium 9.7 mg/dL (8.4-10.2); Carbon Dioxide 24 mmol/L (22-30); Creatinine 1 0.86 mg/dL (0.66-1.25); EST GLOMERULAR FILTRATION RATE 118.0 ML/MIN; Glucose 95 mg/dL (74-106); Potassium 4.1 mmol/L (3.5-5.1); SGOT/AST 36 U/L (17-59); SGPT/ALT 19 U/L (0-50); Total Protein 8.9 g/dL (6.3-8.2)
[2025-03-17 13:47] LABS: ETHYL ALCOHOL 316 mg/dL (0-10)
[2025-03-17] MEDS ORDERED: Zofran 4 MG/2 ML VIAL ONE (14:25)
[2025-03-17] MEDS: Zofran 4 MG/2 ML VIAL IV ONE (14:41)
[2025-03-17] MEDS ORDERED: MORPHINE SULFATE 2 MG INJ ONE (16:00)
[2025-03-17] MEDS: Ativan 2 MG/1 ML VIAL IV ONE (16:03)
[2025-03-17] MEDS: MORPHINE SULFATE 2 MG INJ IV ONE (16:03)
[2025-03-17 16:11] LABS: Amphetamine,Urine NEGATIVE (NEGATIVE); Barbiturate,Urine NEGATIVE (NEGATIVE); Benzodiazepine,Urine NEGATIVE (NEGATIVE); Cocaine,Urine NEGATIVE (NEGATIVE); Methadone,Urine NEGATIVE (NEGATIVE); Opiate,Urine NEGATIVE (NEGATIVE); PCP,Urine NEGATIVE (NEGATIVE); THC,Urine POSITIVE (NEGATIVE)
[2025-03-17 16:22] LABS: Glucose, Urine Negative (Negative); Protein,Urine Dip Negative (Negative); WBC 0-2 /HPF (0-5)
[2025-03-17 16:23] LABS: RBC 0-2 /HPF (0-5)
[2025-03-17] MEDS ORDERED: NORCO 5/325 MG ONE (21:46)
[2025-03-17] MEDS: NORCO 5/325 MG PO ONE (21:47)
[2025-03-18 04:02] VITALS: BP 110/70; PULSE 70; RESP 16; O2SAT 98
== END 2025-03-18 04:11 ==
LOC: ED 12:49
DX: R45.851 Suicidal ideations (principal); S51.811A Laceration without foreign body of right forearm, initial encounter; X78.9XXA Intentional self-harm by unspecified sharp object, initial encounter; Z72.0 Tobacco use

== ENCOUNTER 2025-04-06 17:04 | Observation (INO) | payer OTHER ==
--- NOTE | 2025-04-06 17:20 | ERPHSYRPT ---
- History of Present Illness Source: patient, police Exam Limitations: no limitations Patient Subjective Stated Complaint: patient states he has been thinking about dieing, he says he was thinking about using anything he had available, a stick he was going to use for food drowning, and suffocating. Triage Nursing Assessment: jose c is alert and orientedx4, he walked in called officers for help he has been having thoughts of harming self, says hes also been having this headache for a very long time, says he had spinal tap here and they said he bleeds seratonin every couple of weeks. Timing/Duration: today Severity of Symptoms-Max: severe Severity of Symptoms-Current: severe Hx Tetanus, Diphtheria Vaccination/Date Given: Yes Hx Influenza Vaccination/Date Given: No Hx Pneumococcal Vaccination/Date Given: No Immunizations Up to Date: (unknown) <DANTE BERRIOS - Last Filed: 04/06/25 18:45> <CHIKI ROBERT - Last Filed: 04/06/25 20:26> - History of Present Illness Time Seen by Provider: 04/06/25 17:19 Physician History: patient states he has been thinking about dying, he says he was thinking about using anything he had available, a stick he was going to use for food, drowning, and suffocating. Patient has been out of his medications since his [facility] discharge 2-3 weeks ago. Patient tearful on exam. He reports dysuria for the past 2 days w/o discharge. Hx of multiple psych admission. Hx of self mutilation. Reports drinking a beer today. (DANTE BERRIOS) Allergies/Adverse Reactions: tramadol HCl [From [facility]] Adverse Reaction (Mild, Verified 03/17/25 12:54) pt states that they mess with his heart trazodone Adverse Reaction (Mild, Verified 03/17/25 12:54) pt states that it messes with his heart Home Medications: Buprenorphine HCl/Naloxone HCl [Buprenorphine-Nalox 8-2 mg Tab] 8 mg PO DAILY 03/17/25 [History] Quetiapine Fumarate 25 mg [Seroquel 25 MG] 25 mg PO HS 04/06/25 [History] Quetiapine Fumarate [Seroquel Xr] 200 mg PO HS 04/06/25 [History] Ropinirole HCl 0.5 mg [Requip 0.5 MG] 1 tab PO DAILY 04/06/25 [History] hydrOXYzine HCL [Hydroxyzine HCl] 50 mg PO DAILY 04/06/25 [History] Travel Risk - International Travel Have you traveled outside of the country in past 3 weeks: No - Emerging Infectious Disease Are you exhibiting symptoms associated with any current EIDs: No Symptoms: Cough: New Onset, Fever, Headaches/Body Aches/ <DANTE BERRIOS - Last Filed: 04/06/25 18:45> - Past Medical History Pertinent Past Medical History: Yes Neurological History: Migraines, Seizures ENT History: No Pertinent History Cardiac History: No Pertinent History Respiratory History: No Pertinent History Endocrine Medical History: No Pertinent History Musculoskeletal History: No Pertinent History GI Medical History: No Pertinent History History: No Pertinent History Psycho-Social History: Anxiety, Bipolar, Depression, Other Male Reproductive Disorders: No Pertinent History Other Medical History: manic depressive schizophrenia, borderline personality disorder - Past Surgical History Past Surgical History: Yes Neuro Surgical History: No Pertinent History Cardiac: No Pertinent History Respiratory: No Pertinent History Gastrointestinal: No Pertinent History Genitourinary: No Pertinent History Musculoskeletal: No Pertinent History Male Surgical History: No Pertinent History Other Surgical History: spinal tap--meningitis rule out. right lower arm surgery Significant Family History: no pertinent family hx - Social History Smoking Status: Current every day smoker Exposure to second hand smoke: Yes Drug Use: marijuana - Social Determinants of Health Will the patient participate in the screening: Yes Do you worry about a steady place to live?: Yes Do you have any problems with any of the following?: Lack of heat, Other In the past 12 months,have you had to go without utilities?: Yes Transportation Issues: Yes Has anyone in your support network made you feel unsafe?: No Have you or anyone in your house had to go w/o enough food: Yes <DANTE BERRIOS - Last Filed: 04/06/25 18:45> - Review of Systems All Other Systems: Reviewed and Negative <DANTE BERRIOS - Last Filed: 04/06/25 18:45> - Physical Exam General Appearance: other (tearful) Respiratory Exam: normal breath sounds, lungs clear, airway intact, No respiratory distress Cardiovascular Exam: normal heart sounds, tachycardia, capillary refill <2 sec, No edema Gastrointestinal/Abdominal Exam: soft, No tenderness Neurological Exam: alert, oriented x 3 Appearance: appropriate appearance, appropriate insight Behavior/Eye Contact/Speech: alert & cooperative Thoughts/Hallucinations: no apparent hallucination, No delusions, No flight of ideas, No incoherent, No paranoid, No persecution Skin Exam: other (multiple scars from previous self mutilation) SpO2 Interpretation: normal O2 Delivery: Room Air <DANTE BERRIOS - Last Filed: 04/06/25 18:45> - Nursing Vital Signs Nursing Vital Signs: Initial Vital Signs Blood Pressure 154/109 04/06/25 17:00 O2 Sat by Pulse Oximetry 97 04/06/25 17:00 Pain Scale Pain Intensity 8 - Course Nursing assessment & vital signs reviewed: Yes <DANTE BERRIOS - Last Filed: 04/06/25 18:45> - Course EKG Interpreted by Me: RATE (127), Sinus Tach, Right [place] Deviation (Borderline), NORMAL INTERVALS, NORMAL QRS, Other (PVCs. QTc is 438. No acute ischemia on this twelve-lead EKG.) <CHIKI ROBERT - Last Filed: 04/06/25 20:26> Ordered Tests: Active Orders 24 hr Category Date Time Status Psychiatric Consult STAT Cons 04/06/25 17:24 Active ACETAMINOPHEN Stat Lab 04/06/25 15:35 Completed CBC W DIFF Stat Lab 04/06/25 15:35 Completed CMP Stat Lab 04/06/25 15:35 Completed ETHYL ALCOHOL Stat Lab 04/06/25 15:35 Completed MAG [MAGNESIUM] Stat Lab 04/06/25 17:35 Completed SALICYLATE Stat Lab 04/06/25 15:35 Completed TROPONIN Q4H Lab 04/06/25 17:35 Completed TROPONIN Q4H Lab 04/06/25 23:30 Ordered UA W/RFX UR CULTURE Stat Lab 04/06/25 18:15 Completed Urine Triage Profile Stat Lab 04/06/25 18:15 Completed Medication Summary Discontinued Medications Generic Name Dose Route Start Last Admin Trade Name Freq PRN Reason Stop Dose Admin Acetaminophen 975 mg 04/06/25 17:42 04/06/25 17:58 Acetaminophen 325 Mg Tablet PO 04/06/25 17:43 975 mg STAT STA Administration Acetaminophen Confirm 04/06/25 17:58 Acetaminophen 325 Mg Tablet Administered 04/06/25 17:59 Dose 975 mg .ROUTE .STK-MED ONE Hydroxyzine HCl 50 mg 04/06/25 18:37 04/06/25 19:18 Hydroxyzine Hcl 25 Mg Tablet PO 04/06/25 18:38 50 mg STAT ONE Administration Hydroxyzine HCl Confirm 04/06/25 19:17 Hydroxyzine Hcl 25 Mg Tablet Administered 04/06/25 19:18 Dose 50 mg .ROUTE .STK-MED ONE Ibuprofen 600 mg 04/06/25 19:22 04/06/25 19:29 Ibuprofen 600 Mg Tablet PO 04/06/25 19:23 600 mg STAT ONE Administration Ibuprofen Confirm 04/06/25 19:27 Ibuprofen 600 Mg Tablet Administered 04/06/25 19:28 Dose 600 mg .ROUTE .STK-MED ONE Lorazepam 2 mg 04/06/25 19:19 04/06/25 19:30 Lorazepam 2 Mg/1 Ml 2 Mg Vial IM 04/06/25 19:20 2 mg STAT ONE Administration Lorazepam Confirm 04/06/25 19:28 Lorazepam 20 Mg/10 Ml Mdv 2 Mg/Ml For Single Doses Administered 04/06/25 19:29 Dose 40 mg .ROUTE .STK-MED ONE Quetiapine Fumarate 100 mg 04/06/25 17:24 04/06/25 17:39 Quetiapine Fumarate 100 Mg Tablet PO 04/06/25 17:25 100 mg STAT ONE Administration Lab/Rad Data: Laboratory Result Diagrams 04/06/25 15:35 04/06/25 15:35 Laboratory Results 04/06/25 04/06/25 04/06/25 Range/Units 18:15 18:15 17:35 WBC (4.23-9.07) x10^3/uL RBC (4.63-6.08) x10^6/uL Hgb (13.7-17.5) g/dL Hct (40.1-51.0) % MCV (79.0-92.2) fL MCH (25.7-32.2) pg MCHC (32.3-36.5) g/dL RDW (11.6-14.4) % Plt Count (163-337) x10^3/uL MPV (9.4-12.4) fL Gran % (34.0-67.9) % Immature Gran % (Auto) (0.001-0.429) % Nucleat RBC Rel Count (0.00-0.2) % Eos # (Auto) (0.04-0.54) x10^3/uL Immature Gran # (Auto) (0.001-0.031) x10^3u/L Absolute Lymphs (auto) (1.32-3.57) x10^3/uL Absolute Monos (auto) (0.30-0.82) x10^3/uL Absolute Nucleated RBC (0.00-0.012) x10^3u/L Lymphocytes % (21.8-53.1) % Monocytes % (5.3-12.2) % Eosinophils % (0.8-7.0) % Basophils % (0.2-1.2) % Absolute Granulocytes (1.78-5.38) x10^3/uL Basophils # (0.01-0.08) x10^3/uL Sodium (135-145) mmol/L Potassium (3.5-5.1) mmol/L Chloride (98-107) mmol/L Carbon Dioxide (22-30) mmol/L Anion Gap (5-15) MEQ/L BUN (9-20) mg/dL Creatinine (0.66-1.25) mg/dL Estimated GFR ML/MIN Glucose (74-106) mg/dL Calcium (8.4-10.2) mg/dL Magnesium (1.6-2.3) mg/dL Total Bilirubin (0.2-1.3) mg/dL AST (17-59) U/L ALT (0-50) U/L Alkaline Phosphatase (38-126) U/L Troponin I < 0.012 (0.000-0.033) ng/mL Serum Total Protein (6.3-8.2) g/dL Albumin (3.5-5.0) g/dL Urine Color Yellow (Yellow) Urine Appearance Clear (Clear) Urine pH 6.5 (4.6-8.0) Ur Specific [place] <=1.005 (1.005-1.030) Urine Protein Negative (Negative) Urine Glucose (UA) Negative (Negative) mg/dL Urine Ketones Negative (Negative) Urine Blood Negative (Negative) Urine Nitrite Negative (Negative) Urine Bilirubin Negative (Negative) Urine Urobilinogen 0.2 (0.2) mg/dL Ur Leukocyte Esterase Negative (Negative) U Hyaline Cast (Auto) NONE SEEN (0-2) /LPF Urine Microscopic RBC 0-2 (0-5) /HPF Urine Microscopic WBC 0-2 (0-5) /HPF Ur Epithelial Cells None Seen (None Seen) /HPF Urine Bacteria None Seen (None Seen) /HPF Urine Culture Reflexed NO (NO) Salicylates (2-20) mg/dL Urine Opiates Level NEGATIVE (NEGATIVE) Ur Methadone NEGATIVE (NEGATIVE) Acetaminophen (10-30) ug/ml Urine Barbiturates NEGATIVE (NEGATIVE) Ur Phencyclidine (PCP) NEGATIVE (NEGATIVE) Urine Amphetamine NEGATIVE (NEGATIVE) U Benzodiazepine Level NEGATIVE (NEGATIVE) Urine Cocaine NEGATIVE (NEGATIVE) Urine Marijuana (THC) POSITIVE A (NEGATIVE) Ethyl Alcohol (0-10) mg/dL 04/06/25 04/06/25 04/06/25 Range/Units 17:35 15:35 15:35 WBC 7.5 (4.23-9.07) x10^3/uL RBC 4.67 (4.63-6.08) x10^6/uL Hgb 14.5 (13.7-17.5) g/dL Hct 43.6 (40.1-51.0) % MCV 93.4 H (79.0-92.2) fL MCH 31.0 (25.7-32.2) pg MCHC 33.3 (32.3-36.5) g/dL RDW 14.0 (11.6-14.4) % Plt Count 428 H (163-337) x10^3/uL MPV 8.6 L (9.4-12.4) fL Gran % 59.5 (34.0-67.9) % Immature Gran % (Auto) 0.3 (0.001-0.429) % Nucleat RBC Rel Count 0.0 (0.00-0.2) % Eos # (Auto) 0.04 (0.04-0.54) x10^3/uL Immature Gran # (Auto) 0.02 (0.001-0.031) x10^3u/L Absolute Lymphs (auto) 2.55 (1.32-3.57) x10^3/uL Absolute Monos (auto) 0.36 (0.30-0.82) x10^3/uL Absolute Nucleated RBC 0.00 (0.00-0.012) x10^3u/L Lymphocytes % 34.2 (21.8-53.1) % Monocytes % 4.8 L (5.3-12.2) % Eosinophils % 0.5 L (0.8-7.0) % Basophils % 0.7 (0.2-1.2) % Absolute Granulocytes 4.43 (1.78-5.38) x10^3/uL Basophils # 0.05 (0.01-0.08) x10^3/uL Sodium 147 H (135-145) mmol/L Potassium 3.9 (3.5-5.1) mmol/L Chloride 106 (98-107) mmol/L Carbon Dioxide 29 (22-30) mmol/L Anion Gap 16.8 H (5-15) MEQ/L BUN 9 (9-20) mg/dL Creatinine 0.73 (0.66-1.25) mg/dL Estimated GFR 124.0 ML/MIN Glucose 132 H (74-106) mg/dL Calcium 9.5 (8.4-10.2) mg/dL Magnesium 2.3 (1.6-2.3) mg/dL Total Bilirubin 0.60 (0.2-1.3) mg/dL AST 101 H (17-59) U/L ALT 104 H (0-50) U/L Alkaline Phosphatase 122 (38-126) U/L Troponin I (0.000-0.033) ng/mL Serum Total Protein 8.5 H (6.3-8.2) g/dL Albumin 5.1 H (3.5-5.0) g/dL Urine Color (Yellow) Urine Appearance (Clear) Urine pH (4.6-8.0) Ur Specific [place] (1.005-1.030) Urine Protein (Negative) Urine Glucose (UA) (Negative) mg/dL Urine Ketones (Negative) Urine Blood (Negative) Urine Nitrite (Negative) Urine Bilirubin (Negative) Urine Urobilinogen (0.2) mg/dL Ur Leukocyte Esterase (Negative) U Hyaline Cast (Auto) (0-2) /LPF Urine Microscopic RBC (0-5) /HPF Urine Microscopic WBC (0-5) /HPF Ur Epithelial Cells (None Seen) /HPF Urine Bacteria (None Seen) /HPF Urine Culture Reflexed (NO) Salicylates < 1.0 L (2-20) mg/dL Urine Opiates Level (NEGATIVE) Ur Methadone (NEGATIVE) Acetaminophen < 10 L (10-30) ug/ml Urine Barbiturates (NEGATIVE) Ur Phencyclidine (PCP) (NEGATIVE) Urine Amphetamine (NEGATIVE) U Benzodiazepine Level (NEGATIVE) Urine Cocaine (NEGATIVE) Urine Marijuana (THC) (NEGATIVE) Ethyl Alcohol 372 H (0-10) mg/dL - Progress Progress: unchanged <DANTE BERRIOS - Last Filed: 04/06/25 18:45> - Progress Progress: improved, re-examined Discussed with : Bebeto Counseled pt/family regarding: lab results, diagnosis <CHIKI ROBERT - Last Filed: 04/06/25 20:26> - Progress Progress Note: Thoughts are linear and organized, and patient has active SI without plan. Prior suicide attempt. Prior Psychiatric Hospitalizations. Clinically patient displays no overt toxidrome; they are well appearing, with low suspicion for toxic ingestion given history and exam. Thoughts unlikely 2/2 anemia, hypothyroidism, infection, or ICH. Consult: Psychiatry to evaluate patient for potential hold for danger to self. Disposition: Plan admit to psychiatry for further management of symptoms. 04/06/25 18:[address] Robert at 1900. EtOH 372. Will need drop within legal limit to consult with psych. (DANTE BERRIOS) 04/06/25 20:04 I interpreted the patient's laboratory data results. Based on laboratory data results, the patient has normal troponin level and an elevated blood alcohol level of 372. He also has tested positive for marijuana in his urine. Patient has no chest pain. However he is very anxious and he has sinus tachycardia on a twelve-lead EKG that I interpreted. We will provide him with Ativan intramuscularly. We will discuss placing this patient in observation for the remainder of the evening and into the morning when mental health services can evaluate this patient once his alcohol level has dropped to the legal limit or lower. 04/06/25 20:[address] Olivares, hospitalist on at this time. I reviewed the patient's history, including his prior suicide attempt history and suicidal ideations, presenting complaint, elevated blood alcohol level, physical examination and workup results. We will place him in the ICU setting where I am told that the patient will have one-on-one care and evaluation throughout the remainder of his stay. We will place him in observation and obtain mental health evaluation in the morning of 04/07/2025 04/06/25 20:25 Patient's heart rate jumped to 160 bpm at sinus tach pattern but quickly came down to low 130 bpm when speaking to him. He is very anxious. He would like something for pain. I will provide him with an injection of a one-time Dilaudid medication intravenously. (CHIKI ROBERT) Medical Desision Making - Diagnostic Testing Diagnostic test were ordered, analyzed, and reviewed by me: Yes - Risk of complications The pt has a high risk of morbidity or mortality based on: Decision regarding hospitilization or escalation of hosp level of care <CHIKI ROBERT - Last Filed: 04/06/25 20:26> - Departure Critical Care Time: No <DANTE BERRIOS - Last Filed: 04/06/25 18:45> - Departure Departure Disposition: Observation Critical Care Time: No <CHIKI ROBERT - Last Filed: 04/06/25 20:26> - Departure Clinical Impression: Suicidal intent, Healing laceration, Suicidal ideation, Alcohol intoxication, Severe major depression, History of substance abuse, Transaminitis, Anxiety Condition: Stable Referrals: DOCTOR,NO FAMILY [Primary Care Provider, UNKNOWN] - Follow up/PCP as directed Instructions: Depression in adults
[2025-04-06 17:39] LABS: BASOPHIL % 0.7 % (0.2-1.2); Basophil (Absolute #) 0.05 x10^3/uL (0.01-0.08); Eosinophil (Absolute #) 0.04 x10^3/uL (0.04-0.54); Hematocrit 43.6 % (40.1-51.0); Hemoglobin 14.5 g/dL (13.7-17.5); IMMATURE GRAN # 0.02 x10^3u/L (0.001-0.031); IMMATURE GRAN % 0.3 % (0.001-0.429); Lymphocyte (Absolute #) 2.55 x10^3/uL (1.32-3.57); Mean Corpuscular Hemoglobin 31.0 pg (25.7-32.2); Mean Corpuscular Hgb Concent. 33.3 g/dL (32.3-36.5); Monocyte (Absolute #) 0.36 x10^3/uL (0.30-0.82); NUCLEATED RBC # 0.00 x10^3u/L (0.00-0.012); NUCLEATED RBC % 0.0 % (0.00-0.2); Platelet Count 428 x10^3/uL (163-337); Red Blood Count 4.67 x10^6/uL (4.63-6.08); White Blood Count 7.5 x10^3/uL (4.23-9.07)
[2025-04-06] MEDS: Seroquel 100 MG PO ONE ×2 (17:39→22:54)
[2025-04-06 17:54] LABS: Calcium 9.5 mg/dL (8.4-10.2); Carbon Dioxide 29 mmol/L (22-30); Creatinine 1 0.73 mg/dL (0.66-1.25); EST GLOMERULAR FILTRATION RATE 124.0 ML/MIN; Glucose 132 mg/dL (74-106); Potassium 3.9 mmol/L (3.5-5.1); SGOT/AST 101 U/L (17-59); SGPT/ALT 104 U/L (0-50); Total Protein 8.5 g/dL (6.3-8.2)
[2025-04-06] MEDS: TYLENOL 325 MG PO STA (17:58)
[2025-04-06] MEDS ORDERED: TYLENOL 325 MG ONE (17:58)
[2025-04-06 18:12] LABS: ETHYL ALCOHOL 372 mg/dL (0-10)
[2025-04-06 18:29] LABS: Glucose, Urine Negative (Negative); Protein,Urine Dip Negative (Negative); RBC 0-2 /HPF (0-5); WBC 0-2 /HPF (0-5)
[2025-04-06 18:39] LABS: Amphetamine,Urine NEGATIVE (NEGATIVE); Barbiturate,Urine NEGATIVE (NEGATIVE); Benzodiazepine,Urine NEGATIVE (NEGATIVE); Cocaine,Urine NEGATIVE (NEGATIVE); Methadone,Urine NEGATIVE (NEGATIVE); Opiate,Urine NEGATIVE (NEGATIVE); PCP,Urine NEGATIVE (NEGATIVE); THC,Urine POSITIVE (NEGATIVE)
[2025-04-06] MEDS ORDERED: ATARAX 25 MG ONE (19:17)
[2025-04-06] MEDS: ATARAX 25 MG PO ONE (19:18)
[2025-04-06] MEDS ORDERED: MOTRIN 600 MG ONE (19:27)
[2025-04-06] MEDS ORDERED: ATIVAN 2 MG/ML MDV FOR SINGLE DOSES ONE (19:28)
[2025-04-06] MEDS: MOTRIN 600 MG PO ONE (19:29)
[2025-04-06] MEDS: Ativan 2 MG/1 ML VIAL IM ONE (19:30)
[2025-04-06] MEDS ORDERED: Compazine 10 MG/2 ML ONE (20:31)
[2025-04-06] MEDS ORDERED: Hydromorphone 1 mg/ml Injection ONE (20:31)
[2025-04-06] MEDS ORDERED: BENADRYL 50 MG/ML ONE (20:31)
[2025-04-06] MEDS: BENADRYL 50 MG/ML IV ONE (20:37)
[2025-04-06] MEDS: Compazine 10 MG/2 ML IV ONE (20:37)
[2025-04-06] MEDS: Hydromorphone 1 mg/ml Injection IV ONE (20:38)
[2025-04-06] MEDS ORDERED: Ativan 2 MG/1 ML VIAL IV PRN ×2 (21:00→21:55)
[2025-04-06] MEDS ORDERED: Seroquel 25 MG PO PRN (21:44)
[2025-04-06] MEDS ORDERED: Zofran 4 MG/2 ML VIAL IV PRN (21:44)
[2025-04-06] MEDS ORDERED: TYLENOL 325 MG PO PRN (21:44)
[2025-04-06] MEDS ORDERED: Ativan 1 MG PO PRN (21:55)
--- NOTE | 2025-04-06 22:03 | PCM.HP ---
History of Present Illness - Chief Complaint Chief Complaint: Suicidal ideation Date: 04/06/25 History of Present Illness: is a 34 year old male with a history of depression with prior self mutilation episodes, anxiety, and alcohol abuse who presented to the ED because he reported that he has been thinking about dying. He stated that he was thinking about using anything he had available, drowning, and suffocating. The patient has been out of his medications since his [facility] discharge 2-3 weeks ago. In the ED, the patient was tearful. He reported dysuria for the past 2 days w/o discharge. He states that he drinks approximately 10 beers daily and his last drink was prior to presenting. He does report a history of alcohol withdrawals. In the ED, the patient was noted to have an elevated alcohol level. At the time of my evaluation, the patient is cooperative and pleasant, without any slurred speech or emotional lability. - Review of Systems Constitutional: No Symptoms Eyes: No Symptoms Ears, Nose, & Throat: No Symptoms Respiratory: No Symptoms Cardiac: No Symptoms Abdominal/Gastrointestinal: No Symptoms Genitourinary Symptoms: No Symptoms Musculoskeletal: No Symptoms Skin: No Symptoms Neurological: No Symptoms Psychological: Alcohol Abuse, Anxiety, Depression, Suicidal Ideations, Emotional Lability, Mood Changes, No Homicidal Ideations, No Hallucinations, No Memory Loss Endocrine: No Symptoms Hematologic/Lymphatic: No Symptoms Medications & Allergies Home Medications: Home Medication List Buprenorphine HCl/Naloxone HCl [Buprenorphine-Nalox 8-2 mg Tab] 8 mg PO DAILY 03/17/25 [History Confirmed 04/06/25] Quetiapine Fumarate 25 mg [Seroquel 25 MG] 25 mg PO BIDPRN PRN 04/06/25 [History Confirmed 04/06/25] Quetiapine Fumarate [Seroquel Xr] 200 mg PO HS 04/06/25 [History Confirmed 04/06/25] Ropinirole HCl 0.5 mg [Requip 0.5 MG] 1 tab PO DAILY 04/06/25 [History Confirmed 04/06/25] hydrOXYzine HCL [Hydroxyzine HCl] 50 mg PO DAILY 04/06/25 [History Confirmed 04/06/25] Allergies/Adverse Reactions: Allergies Allergy/AdvReac Type Severity Reaction Status Date / Time tramadol HCl [From Ultram] AdvReac Mild Verified 03/17/25 12:54 trazodone AdvReac Mild Verified 03/17/25 12:54 - Past Medical History Past Medical History: Yes Neurological History: Migraines, Seizures ENT History: No Pertinent History Cardiac History: No Pertinent History Respiratory History: No Pertinent History Endocrine Medical History: No Pertinent History Musculoskelatal History: No Pertinent History GI Medical History: No Pertinent History History: No Pertinent History Pyscho-Social History: Anxiety, Bipolar, Depression, Other Male Reproductive Disorders: No Pertinent History Comment: manic depressive schizophrenia, borderline personality disorder - Past Surgical History Past Surgical History: Yes Neuro Surgical History: No Pertinent History Cardiac History: No Pertinent History Respiratory Surgery: No Pertinent History GI Surgical History: No Pertinent History Genitourinary Surgical Hx: No Pertinent History Musculskeletal Surgical Hx: No Pertinent History Male Surgical History: No Pertinent History Other Surgical History: spinal tap--meningitis rule out. right lower arm surgery Significant Family History: no pertinent family hx - Social History Smoking Status: Current every day smoker How long have you smoked: 13 yrs Exposure to second hand smoke: Yes Alcohol: Heavy, Daily Drug Use: marijuana, narcotics - Social Determinants of Health Will the patient participate in the screening: Yes Do you worry about a steady place to live?: Yes Do you have any problems with any of the following?: Pest (bugs,ants,or mice) In the past 12 months,have you had to go without utilities?: Yes Have you or anyone in your house had to go without enough: Yes Transportation Issues: Yes Has anyone in your support network made you feel unsafe?: Yes Does the patient want assistance with any of the above?: Yes Comment: pt would like assistance with housing (including utilities), food, & transportation - Physical Exam Vital Signs: Vital Signs - 24 hr Temp Pulse Resp BP BP BP Pulse Ox 04/06/25 20:59 97.5 F 105 H 18 143/96 98 04/06/25 20:01 142 H 18 125/91 98 04/06/25 19:31 117 H 18 143/93 96 04/06/25 19:29 132 H 18 120/77 98 04/06/25 19:00 126 H 20 97 04/06/25 18:48 98.2 F 118 H 97 04/06/25 18:06 97.2 F 117 H 22 98 04/06/25 18:01 152/97 04/06/25 17:30 121 H 138/93 97 04/06/25 17:06 98.4 F 129 H 20 154/109 97 04/06/25 17:00 154/109 97 General Appearance: no apparent distress, alert Neurologic Exam: alert, oriented x 3, cooperative, occupational health and safety adviser II-XII nml as tested, normal mood/affect, nml cerebellar function, sensation nml, No motor deficits, No sensory deficit Eye Exam: PERRL/EOMI, eyes nml inspection, scleral icterus, No pale conjunctivae, No photophobia Ears, Nose, Throat Exam: normal ENT inspection Neck Exam: normal inspection, non-tender, supple, full range of motion, No meningismus Respiratory Exam: normal breath sounds, lungs clear, airway intact, No chest tenderness, No respiratory distress Cardiovascular Exam: normal heart sounds, tachycardia, No murmur, No friction rub, No gallop Gastrointestinal/Abdomen Exam: soft, normal bowel sounds, No tenderness, No distention, No mass, No guarding Back Exam: normal range of motion Extremity Exam: normal inspection, normal range of motion Skin Exam: normal color, No rash, No petechiae, No jaundice Results - Labs Lab/Micro Results: Lab Results-Last 24 Hours 04/06/25 04/06/25 04/06/25 Range/Units 15:35 15:35 17:35 WBC 7.5 (4.23-9.07) x10^3/uL RBC 4.67 (4.63-6.08) x10^6/uL Hgb 14.5 (13.7-17.5) g/dL Hct 43.6 (40.1-51.0) % MCV 93.4 H (79.0-92.2) fL MCH 31.0 (25.7-32.2) pg MCHC 33.3 (32.3-36.5) g/dL RDW 14.0 (11.6-14.4) % Plt Count 428 H (163-337) x10^3/uL MPV 8.6 L (9.4-12.4) fL Gran % 59.5 (34.0-67.9) % Immature Gran % (Auto) 0.3 (0.001-0.429) % Nucleat RBC Rel Count 0.0 (0.00-0.2) % Eos # (Auto) 0.04 (0.04-0.54) x10^3/uL Immature Gran # (Auto) 0.02 (0.001-0.031) x10^3u/L Absolute Lymphs (auto) 2.55 (1.32-3.57) x10^3/uL Absolute Monos (auto) 0.36 (0.30-0.82) x10^3/uL Absolute Nucleated RBC 0.00 (0.00-0.012) x10^3u/L Lymphocytes % 34.2 (21.8-53.1) % Monocytes % 4.8 L (5.3-12.2) % Eosinophils % 0.5 L (0.8-7.0) % Basophils % 0.7 (0.2-1.2) % Absolute Granulocytes 4.43 (1.78-5.38) x10^3/uL Basophils # 0.05 (0.01-0.08) x10^3/uL Sodium 147 H (135-145) mmol/L Potassium 3.9 (3.5-5.1) mmol/L Chloride 106 (98-107) mmol/L Carbon Dioxide 29 (22-30) mmol/L Anion Gap 16.8 H (5-15) MEQ/L BUN 9 (9-20) mg/dL Creatinine 0.73 (0.66-1.25) mg/dL Estimated GFR 124.0 ML/MIN Glucose 132 H (74-106) mg/dL Calcium 9.5 (8.4-10.2) mg/dL Magnesium 2.3 (1.6-2.3) mg/dL Total Bilirubin 0.60 (0.2-1.3) mg/dL AST 101 H (17-59) U/L ALT 104 H (0-50) U/L Alkaline Phosphatase 122 (38-126) U/L Troponin I (0.000-0.033) ng/mL Serum Total Protein 8.5 H (6.3-8.2) g/dL Albumin 5.1 H (3.5-5.0) g/dL Urine Color (Yellow) Urine Appearance (Clear) Urine pH (4.6-8.0) Ur Specific [employer] (1.005-1.030) Urine Protein (Negative) Urine Glucose (UA) (Negative) mg/dL Urine Ketones (Negative) Urine Blood (Negative) Urine Nitrite (Negative) Urine Bilirubin (Negative) Urine Urobilinogen (0.2) mg/dL Ur Leukocyte Esterase (Negative) U Hyaline Cast (Auto) (0-2) /LPF Urine Microscopic RBC (0-5) /HPF Urine Microscopic WBC (0-5) /HPF Ur Epithelial Cells (None Seen) /HPF Urine Bacteria (None Seen) /HPF Urine Culture Reflexed (NO) Salicylates < 1.0 L (2-20) mg/dL Urine Opiates Level (NEGATIVE) Ur Methadone (NEGATIVE) Acetaminophen < 10 L (10-30) ug/ml Urine Barbiturates (NEGATIVE) Ur Phencyclidine (PCP) (NEGATIVE) Urine Amphetamine (NEGATIVE) U Benzodiazepine Level (NEGATIVE) Urine Cocaine (NEGATIVE) Urine Marijuana (THC) (NEGATIVE) Ethyl Alcohol 372 H (0-10) mg/dL 04/06/25 04/06/25 04/06/25 Range/Units 17:35 18:15 18:15 WBC (4.23-9.07) x10^3/uL RBC (4.63-6.08) x10^6/uL Hgb (13.7-17.5) g/dL Hct (40.1-51.0) % MCV (79.0-92.2) fL MCH (25.7-32.2) pg MCHC (32.3-36.5) g/dL RDW (11.6-14.4) % Plt Count (163-337) x10^3/uL MPV (9.4-12.4) fL Gran % (34.0-67.9) % Immature Gran % (Auto) (0.001-0.429) % Nucleat RBC Rel Count (0.00-0.2) % Eos # (Auto) (0.04-0.54) x10^3/uL Immature Gran # (Auto) (0.001-0.031) x10^3u/L Absolute Lymphs (auto) (1.32-3.57) x10^3/uL Absolute Monos (auto) (0.30-0.82) x10^3/uL Absolute Nucleated RBC (0.00-0.012) x10^3u/L Lymphocytes % (21.8-53.1) % Monocytes % (5.3-12.2) % Eosinophils % (0.8-7.0) % Basophils % (0.2-1.2) % Absolute Granulocytes (1.78-5.38) x10^3/uL Basophils # (0.01-0.08) x10^3/uL Sodium (135-145) mmol/L Potassium (3.5-5.1) mmol/L Chloride (98-107) mmol/L Carbon Dioxide (22-30) mmol/L Anion Gap (5-15) MEQ/L BUN (9-20) mg/dL Creatinine (0.66-1.25) mg/dL Estimated GFR ML/MIN Glucose (74-106) mg/dL Calcium (8.4-10.2) mg/dL Magnesium (1.6-2.3) mg/dL Total Bilirubin (0.2-1.3) mg/dL AST (17-59) U/L ALT (0-50) U/L Alkaline Phosphatase (38-126) U/L Troponin I < 0.012 (0.000-0.033) ng/mL Serum Total Protein (6.3-8.2) g/dL Albumin (3.5-5.0) g/dL Urine Color Yellow (Yellow) Urine Appearance Clear (Clear) Urine pH 6.5 (4.6-8.0) Ur Specific [employer] <=1.005 (1.005-1.030) Urine Protein Negative (Negative) Urine Glucose (UA) Negative (Negative) mg/dL Urine Ketones Negative (Negative) Urine Blood Negative (Negative) Urine Nitrite Negative (Negative) Urine Bilirubin Negative (Negative) Urine Urobilinogen 0.2 (0.2) mg/dL Ur Leukocyte Esterase Negative (Negative) U Hyaline Cast (Auto) NONE SEEN (0-2) /LPF Urine Microscopic RBC 0-2 (0-5) /HPF Urine Microscopic WBC 0-2 (0-5) /HPF Ur Epithelial Cells None Seen (None Seen) /HPF Urine Bacteria None Seen (None Seen) /HPF Urine Culture Reflexed NO (NO) Salicylates (2-20) mg/dL Urine Opiates Level NEGATIVE (NEGATIVE) Ur Methadone NEGATIVE (NEGATIVE) Acetaminophen (10-30) ug/ml Urine Barbiturates NEGATIVE (NEGATIVE) Ur Phencyclidine (PCP) NEGATIVE (NEGATIVE) Urine Amphetamine NEGATIVE (NEGATIVE) U Benzodiazepine Level NEGATIVE (NEGATIVE) Urine Cocaine NEGATIVE (NEGATIVE) Urine Marijuana (THC) POSITIVE A (NEGATIVE) Ethyl Alcohol (0-10) mg/dL - Other Procedures and Tests Respiratory Therapy 04/06/25 21:00 EKG REPEAT IN AM 04/06/25 21:39 Smoking Cessation Education ONCE 04/06/25 21:44 EKG REPEAT IN AM Assessment/Plan (1) Suicidal behavior with attempted self-injury Current Visit: No Status: Acute Assessment & Plan: 1:1 observation in ICU. Continue home regimen (will need to consult pharmacy for equivalent of long acting Seroquel since not available here). Psych evaluation when ETOH less than legal limit. Code(s): T14.91XA - SUICIDE ATTEMPT, INITIAL ENCOUNTER (2) Dehydration Current Visit: Yes Status: Acute Assessment & Plan: Mild tachycardia noted. IV fluids. Monitor Na. Code(s): E86.0 - DEHYDRATION (3) Alcohol intoxication Current Visit: Yes Status: Acute Assessment & Plan: [facility] protocol for monitoring regarding withdrawal risk. Recheck ETOH level in AM. (4) Hyperglycemia Current Visit: Yes Status: Acute Assessment & Plan: Mild. Check HbA1c. Code(s): R73.9 - HYPERGLYCEMIA, UNSPECIFIED (5) Transaminitis Current Visit: Yes Status: Acute Assessment & Plan: Due to alcohol intake. Recheck LFTs in AM. Code(s): R74.01 - ELEVATION OF LEVELS OF LIVER TRANSAMINASE LEVELS Telemedicine Encounter - Telemedicine Encounter Telemedicine Encounter: "The entirety of this encounter was performed via Telemedicine" This visit was performed using real-time audio and video connection between my location and thepatients locationwith the assistance of a surrogateat the patients location. Written or verbal consent was obtained from the patient/guardian to perform this visit [facility]. Any patient questions regarding the telemedicine interaction were answered. Please note that this admission required 51 minutes to complete.
[2025-04-06] MEDS: Dextrose 5% -0.45 NaCl 1000 ML 1,000 ML IV SCH (22:12)
[2025-04-06] MEDS: QUETIAPINE FUMARATE 200 MG PO SCH (22:53)
[2025-04-07] MEDS ORDERED: ATIVAN 2 MG/ML MDV FOR SINGLE DOSES ONE ×3 (01:20→20:59)
[2025-04-07] MEDS: Ativan 2 MG/1 ML VIAL IV PRN (01:21)
[2025-04-07 04:53] LABS: BASOPHIL % 0.6 % (0.2-1.2); Basophil (Absolute #) 0.04 x10^3/uL (0.01-0.08); Eosinophil (Absolute #) 0.33 x10^3/uL (0.04-0.54); Hematocrit 34.8 % (40.1-51.0); IMMATURE GRAN # 0.02 x10^3u/L (0.001-0.031); IMMATURE GRAN % 0.3 % (0.001-0.429); Lymphocyte (Absolute #) 3.97 x10^3/uL (1.32-3.57); Mean Corpuscular Hemoglobin 31.4 pg (25.7-32.2); Mean Corpuscular Hgb Concent. 33.0 g/dL (32.3-36.5); Monocyte (Absolute #) 0.33 x10^3/uL (0.30-0.82); NUCLEATED RBC # 0.00 x10^3u/L (0.00-0.012); NUCLEATED RBC % 0.0 % (0.00-0.2); Platelet Count 334 x10^3/uL (163-337); Red Blood Count 3.66 x10^6/uL (4.63-6.08); White Blood Count 7.2 x10^3/uL (4.23-9.07)
[2025-04-07 05:01] LABS: Hemoglobin 11.5 g/dL (13.7-17.5)
[2025-04-07 05:07] LABS: Calcium 8.8 mg/dL (8.4-10.2); Carbon Dioxide 24.0 mmol/L (22-30); Creatinine 1 0.69 mg/dL (0.66-1.25); EST GLOMERULAR FILTRATION RATE 126.1 ML/MIN; ETHYL ALCOHOL 33.0 mg/dL (0-10); Glucose 82.0 mg/dL (74-106); Potassium 3.6 mmol/L (3.5-5.1); SGOT/AST 67.0 U/L (17-59); SGPT/ALT 71.0 U/L (0-50); Total Protein 6.0 g/dL (6.3-8.2)
[2025-04-07] MEDS ORDERED: ATIVAN 2 MG/ML MDV FOR SINGLE DOSES IV PRN ×2 (07:13)
[2025-04-07] MEDS ORDERED: MEDICATION INTERVENTION MC SCH ×2 (07:30)
[2025-04-07] MEDS: ATIVAN 2 MG/ML MDV FOR SINGLE DOSES IV PRN (08:20)
[2025-04-07] MEDS: TYLENOL 325 MG PO PRN (09:31)
--- NOTE | 2025-04-07 09:35 | PCM.NOTE ---
Date and Time: 04/07/25 0929 Subjective Assessment: is a 34-year-old male with a history of depression with prior self- mutilation episodes, anxiety, and alcohol abuse presented to the ED reporting suicidal thoughts, including thoughts of using any available means, drowning, or suffocating. He has been off his medications since discharge from the [facility] 23 weeks ago. In the ED, he was noted to be tearful and reported dysuria for the past two days without discharge. He states he drinks approximately 10 beers daily, with his last drink occurring prior to arrival, and he has a history of alcohol withdrawals. His alcohol level on admission was elevated. At the time of evaluation, he was cooperative and pleasant, without slurred speech or emotional lability. On 04/07, the patient was resting in bed and stated that he currently does not have suicidal ideation but continues to request placement at the [facility] for multiple suicidal thoughts and abnormal auditory perceptions. He denies visual hallucinations. Liver enzymes have improved (AST 67, ALT 71), and his alcohol level remains elevated at 33; it will be rechecked at noon today. Once his alcohol level normalizes, a psychiatry consult will be ordered. He remains on the [facility] protocol for alcohol withdrawal and continues IV fluids. Urine drug screen was positive for THC. The patient reports that he picked up his medications but is unable to access Suboxone because he lacks transportation to [place]. He has expressed interest in placement in a prison house once his medications are regulated to help with abnormal voices he hears and stated he would consider no longer camping in a tent if such placement is secured. He currently denies chest pain, shortness of breath, abdominal pain, nausea, vomiting, or diarrhea. - Review of Systems Constitutional: No Fever, No Chills Eyes: No Symptoms Ears, Nose, & Throat: No Symptoms Respiratory: No Cough, No Short Of Breath Cardiac: No Chest Pain, No Edema, No Syncope Abdominal/Gastrointestinal: No Abdominal Pain, No Nausea, No Vomiting, No Diarrhea Genitourinary Symptoms: No Dysuria Musculoskeletal: No Back Pain, No Neck Pain Skin: No Rash Neurological: Tremors, No Dizziness, No Focal Weakness, No Sensory Changes Psychological: No Symptoms, Hallucinations Endocrine: No Symptoms Hematologic/Lymphatic: No Symptoms Immunological/Allergic: No Symptoms Objective Exam General Appearance: no apparent distress, alert, thin Neurologic Exam: alert, oriented x 3, cooperative, normal mood/affect, nml cerebellar function, sensation nml, No motor deficits Skin Exam: normal color, warm, dry Wound Assessment: Skin/Wound Assessment Wound/Incision Assessment Start: 04/06/25 21:39 Text: Status: Active Freq: Q6H Protocol: Document 04/07/25 04:00 KD (Rec: 04/07/25 04:36 KD [id number]) Wound/Incision Assessment Left Lower Arm Wound Assessment Shift Assessment Wound Type Scars Wound Stage Non Pressure Wound Drainage Amount None General Appearance Open to air Comment multiple scars in various stages of healing Left Upper Arm Wound Assessment Shift Assessment Wound Type Scars Wound Stage Non Pressure Wound Drainage Amount None General Appearance Open to air Comment multiple scars Left Upper Chest Wound Assessment Shift Assessment Wound Type Scars Wound Stage Non Pressure Wound Drainage Amount None General Appearance Open to air Comment multiple scars Right Lower Arm Wound Assessment Shift Assessment Wound Type Scars Wound Stage Non Pressure Wound Drainage Amount None General Appearance Well Approximated,Open to air Comment multiple scars Wound Photo Photo Taken No Eye Exam: PERRL, EOMI, eyes nml inspection Ears, Nose, Throat Exam: normal ENT inspection, pharynx normal, moist mucous membranes Neck Exam: normal inspection, non-tender, supple, full range of motion Respiratory Exam: normal breath sounds, lungs clear, No respiratory distress Cardiovascular Exam: regular rate/rhythm, normal heart sounds Gastrointestinal/Abdomen Exam: soft, No tenderness, No mass Extremity Exam: normal inspection, normal range of motion Back Exam: normal inspection, normal range of motion, No CVA tenderness, No vertebral tenderness Male Genitalia Exam: deferred Rectal Exam: deferred Objective Data Vital Signs: Vital Signs - 24 hr Temp Pulse Resp BP BP BP Pulse Ox 04/07/25 09:00 99.0 F 98 H 18 122/72 04/07/25 08:00 90 18 126/81 04/07/25 07:00 82 17 134/81 97 04/07/25 06:00 96 H 16 120/82 96 04/07/25 05:00 95 H 18 118/83 97 04/07/25 04:30 109 H 13 120/73 04/07/25 04:00 97.8 F 109 H 14 120/73 99 04/07/25 03:00 97 H 16 129/69 04/07/25 02:00 98 H 17 117/68 96 04/07/25 01:21 116 H 15 125/69 04/07/25 01:00 101 H 17 125/69 96 04/07/25 00:01 104 H 04/07/25 00:00 98.0 F 107 H 15 120/71 95 04/06/25 23:00 103 H 18 127/88 98 04/06/25 22:19 95 H 16 126/85 98 04/06/25 22:00 95 H 13 99 04/06/25 21:00 97.8 F 114 H 15 143/96 96 04/06/25 20:59 97.5 F 105 H 18 143/96 98 04/06/25 20:01 142 H 18 125/91 98 04/06/25 19:31 117 H 18 143/93 96 04/06/25 19:29 132 H 18 120/77 98 04/06/25 19:00 126 H 20 97 04/06/25 18:48 98.2 F 118 H 97 04/06/25 18:06 97.2 F 117 H 22 98 04/06/25 18:01 152/97 04/06/25 17:30 121 H 138/93 97 04/06/25 17:06 98.4 F 129 H 20 154/109 97 04/06/25 17:00 154/109 97 Pain Assessment - Last Documented Pain Intensity 0 Pain Scale Used 0-10 Pain Scale Intake and Output: Intake & Output 04/04/25 04/05/25 04/06/25 04/07/25 11:59 11:59 11:59 11:59 Intake Total 2535 Output Total 625 Balance 1910 Weight 56.9 kg Lab Results: Lab Results-Last 24 Hours 04/06/25 04/06/25 04/06/25 Range/Units 15:35 15:35 17:35 WBC 7.5 (4.23-9.07) x10^3/uL RBC 4.67 (4.63-6.08) x10^6/uL Hgb 14.5 (13.7-17.5) g/dL Hct 43.6 (40.1-51.0) % MCV 93.4 H (79.0-92.2) fL MCH 31.0 (25.7-32.2) pg MCHC 33.3 (32.3-36.5) g/dL RDW 14.0 (11.6-14.4) % Plt Count 428 H (163-337) x10^3/uL MPV 8.6 L (9.4-12.4) fL Gran % 59.5 (34.0-67.9) % Immature Gran % (Auto) 0.3 (0.001-0.429) % Nucleat RBC Rel Count 0.0 (0.00-0.2) % Eos # (Auto) 0.04 (0.04-0.54) x10^3/uL Immature Gran # (Auto) 0.02 (0.001-0.031) x10^3u/L Absolute Lymphs (auto) 2.55 (1.32-3.57) x10^3/uL Absolute Monos (auto) 0.36 (0.30-0.82) x10^3/uL Absolute Nucleated RBC 0.00 (0.00-0.012) x10^3u/L Lymphocytes % 34.2 (21.8-53.1) % Monocytes % 4.8 L (5.3-12.2) % Eosinophils % 0.5 L (0.8-7.0) % Basophils % 0.7 (0.2-1.2) % Absolute Granulocytes 4.43 (1.78-5.38) x10^3/uL Basophils # 0.05 (0.01-0.08) x10^3/uL Sodium 147 H (135-145) mmol/L Potassium 3.9 (3.5-5.1) mmol/L Chloride 106 (98-107) mmol/L Carbon Dioxide 29 (22-30) mmol/L Anion Gap 16.8 H (5-15) MEQ/L BUN 9 (9-20) mg/dL Creatinine 0.73 (0.66-1.25) mg/dL Estimated GFR 124.0 ML/MIN Glucose 132 H (74-106) mg/dL Hemoglobin A1c (4.5-6.0) % Calcium 9.5 (8.4-10.2) mg/dL Magnesium 2.3 (1.6-2.3) mg/dL Total Bilirubin 0.60 (0.2-1.3) mg/dL AST 101 H (17-59) U/L ALT 104 H (0-50) U/L Alkaline Phosphatase 122 (38-126) U/L Troponin I (0.000-0.033) ng/mL Serum Total Protein 8.5 H (6.3-8.2) g/dL Albumin 5.1 H (3.5-5.0) g/dL Prealbumin (17.6-36.0) mg/dL Urine Color (Yellow) Urine Appearance (Clear) Urine pH (4.6-8.0) Ur Specific [place] (1.005-1.030) Urine Protein (Negative) Urine Glucose (UA) (Negative) mg/dL Urine Ketones (Negative) Urine Blood (Negative) Urine Nitrite (Negative) Urine Bilirubin (Negative) Urine Urobilinogen (0.2) mg/dL Ur Leukocyte Esterase (Negative) U Hyaline Cast (Auto) (0-2) /LPF Urine Microscopic RBC (0-5) /HPF Urine Microscopic WBC (0-5) /HPF Ur Epithelial Cells (None Seen) /HPF Urine Bacteria (None Seen) /HPF Urine Culture Reflexed (NO) Salicylates < 1.0 L (2-20) mg/dL Urine Opiates Level (NEGATIVE) Ur Methadone (NEGATIVE) Acetaminophen < 10 L (10-30) ug/ml Urine Barbiturates (NEGATIVE) Ur Phencyclidine (PCP) (NEGATIVE) Urine Amphetamine (NEGATIVE) U Benzodiazepine Level (NEGATIVE) Urine Cocaine (NEGATIVE) Urine Marijuana (THC) (NEGATIVE) Ethyl Alcohol 372 H (0-10) mg/dL 04/06/25 04/06/25 04/06/25 Range/Units 17:35 18:15 18:15 WBC (4.23-9.07) x10^3/uL RBC (4.63-6.08) x10^6/uL Hgb (13.7-17.5) g/dL Hct (40.1-51.0) % MCV (79.0-92.2) fL MCH (25.7-32.2) pg MCHC (32.3-36.5) g/dL RDW (11.6-14.4) % Plt Count (163-337) x10^3/uL MPV (9.4-12.4) fL Gran % (34.0-67.9) % Immature Gran % (Auto) (0.001-0.429) % Nucleat RBC Rel Count (0.00-0.2) % Eos # (Auto) (0.04-0.54) x10^3/uL Immature Gran # (Auto) (0.001-0.031) x10^3u/L Absolute Lymphs (auto) (1.32-3.57) x10^3/uL Absolute Monos (auto) (0.30-0.82) x10^3/uL Absolute Nucleated RBC (0.00-0.012) x10^3u/L Lymphocytes % (21.8-53.1) % Monocytes % (5.3-12.2) % Eosinophils % (0.8-7.0) % Basophils % (0.2-1.2) % Absolute Granulocytes (1.78-5.38) x10^3/uL Basophils # (0.01-0.08) x10^3/uL Sodium (135-145) mmol/L Potassium (3.5-5.1) mmol/L Chloride (98-107) mmol/L Carbon Dioxide (22-30) mmol/L Anion Gap (5-15) MEQ/L BUN (9-20) mg/dL Creatinine (0.66-1.25) mg/dL Estimated GFR ML/MIN Glucose (74-106) mg/dL Hemoglobin A1c (4.5-6.0) % Calcium (8.4-10.2) mg/dL Magnesium (1.6-2.3) mg/dL Total Bilirubin (0.2-1.3) mg/dL AST (17-59) U/L ALT (0-50) U/L Alkaline Phosphatase (38-126) U/L Troponin I < 0.012 (0.000-0.033) ng/mL Serum Total Protein (6.3-8.2) g/dL Albumin (3.5-5.0) g/dL Prealbumin (17.6-36.0) mg/dL Urine Color Yellow (Yellow) Urine Appearance Clear (Clear) Urine pH 6.5 (4.6-8.0) Ur Specific [place] <=1.005 (1.005-1.030) Urine Protein Negative (Negative) Urine Glucose (UA) Negative (Negative) mg/dL Urine Ketones Negative (Negative) Urine Blood Negative (Negative) Urine Nitrite Negative (Negative) Urine Bilirubin Negative (Negative) Urine Urobilinogen 0.2 (0.2) mg/dL Ur Leukocyte Esterase Negative (Negative) U Hyaline Cast (Auto) NONE SEEN (0-2) /LPF Urine Microscopic RBC 0-2 (0-5) /HPF Urine Microscopic WBC 0-2 (0-5) /HPF Ur Epithelial Cells None Seen (None Seen) /HPF Urine Bacteria None Seen (None Seen) /HPF Urine Culture Reflexed NO (NO) Salicylates (2-20) mg/dL Urine Opiates Level NEGATIVE (NEGATIVE) Ur Methadone NEGATIVE (NEGATIVE) Acetaminophen (10-30) ug/ml Urine Barbiturates NEGATIVE (NEGATIVE) Ur Phencyclidine (PCP) NEGATIVE (NEGATIVE) Urine Amphetamine NEGATIVE (NEGATIVE) U Benzodiazepine Level NEGATIVE (NEGATIVE) Urine Cocaine NEGATIVE (NEGATIVE) Urine Marijuana (THC) POSITIVE A (NEGATIVE) Ethyl Alcohol (0-10) mg/dL 04/06/25 04/07/25 04/07/25 Range/Units 23:55 04:21 04:21 WBC 7.2 (4.23-9.07) x10^3/uL RBC 3.66 L (4.63-6.08) x10^6/uL Hgb 11.5 L D (13.7-17.5) g/dL Hct 34.8 L (40.1-51.0) % MCV 95.1 H (79.0-92.2) fL MCH 31.4 (25.7-32.2) pg MCHC 33.0 (32.3-36.5) g/dL RDW 14.3 (11.6-14.4) % Plt Count 334 (163-337) x10^3/uL MPV 8.9 L (9.4-12.4) fL Gran % 34.9 (34.0-67.9) % Immature Gran % (Auto) 0.3 (0.001-0.429) % Nucleat RBC Rel Count 0.0 (0.00-0.2) % Eos # (Auto) 0.33 (0.04-0.54) x10^3/uL Immature Gran # (Auto) 0.02 (0.001-0.031) x10^3u/L Absolute Lymphs (auto) 3.97 H (1.32-3.57) x10^3/uL Absolute Monos (auto) 0.33 (0.30-0.82) x10^3/uL Absolute Nucleated RBC 0.00 (0.00-0.012) x10^3u/L Lymphocytes % 55.0 H (21.8-53.1) % Monocytes % 4.6 L (5.3-12.2) % Eosinophils % 4.6 (0.8-7.0) % Basophils % 0.6 (0.2-1.2) % Absolute Granulocytes 2.53 (1.78-5.38) x10^3/uL Basophils # 0.04 (0.01-0.08) x10^3/uL Sodium 137 D (135-145) mmol/L Potassium 3.6 (3.5-5.1) mmol/L Chloride 109 H (98-107) mmol/L Carbon Dioxide 24 (22-30) mmol/L Anion Gap 7.6 (5-15) MEQ/L BUN 11 (9-20) mg/dL Creatinine 0.69 (0.66-1.25) mg/dL Estimated GFR 126.1 ML/MIN Glucose 82 (74-106) mg/dL Hemoglobin A1c (4.5-6.0) % Calcium 8.8 (8.4-10.2) mg/dL Magnesium (1.6-2.3) mg/dL Total Bilirubin 0.60 (0.2-1.3) mg/dL AST 67 H (17-59) U/L ALT 71 H (0-50) U/L Alkaline Phosphatase 88 (38-126) U/L Troponin I < 0.012 (0.000-0.033) ng/mL Serum Total Protein 6.0 L (6.3-8.2) g/dL Albumin 3.7 (3.5-5.0) g/dL Prealbumin 27.19 (17.6-36.0) mg/dL Urine Color (Yellow) Urine Appearance (Clear) Urine pH (4.6-8.0) Ur Specific [place] (1.005-1.030) Urine Protein (Negative) Urine Glucose (UA) (Negative) mg/dL Urine Ketones (Negative) Urine Blood (Negative) Urine Nitrite (Negative) Urine Bilirubin (Negative) Urine Urobilinogen (0.2) mg/dL Ur Leukocyte Esterase (Negative) U Hyaline Cast (Auto) (0-2) /LPF Urine Microscopic RBC (0-5) /HPF Urine Microscopic WBC (0-5) /HPF Ur Epithelial Cells (None Seen) /HPF Urine Bacteria (None Seen) /HPF Urine Culture Reflexed (NO) Salicylates (2-20) mg/dL Urine Opiates Level (NEGATIVE) Ur Methadone (NEGATIVE) Acetaminophen (10-30) ug/ml Urine Barbiturates (NEGATIVE) Ur Phencyclidine (PCP) (NEGATIVE) Urine Amphetamine (NEGATIVE) U Benzodiazepine Level (NEGATIVE) Urine Cocaine (NEGATIVE) Urine Marijuana (THC) (NEGATIVE) Ethyl Alcohol 33 H (0-10) mg/dL 04/07/25 Range/Units 04:21 WBC (4.23-9.07) x10^3/uL RBC (4.63-6.08) x10^6/uL Hgb (13.7-17.5) g/dL Hct (40.1-51.0) % MCV (79.0-92.2) fL MCH (25.7-32.2) pg MCHC (32.3-36.5) g/dL RDW (11.6-14.4) % Plt Count (163-337) x10^3/uL MPV (9.4-12.4) fL Gran % (34.0-67.9) % Immature Gran % (Auto) (0.001-0.429) % Nucleat RBC Rel Count (0.00-0.2) % Eos # (Auto) (0.04-0.54) x10^3/uL Immature Gran # (Auto) (0.001-0.031) x10^3u/L Absolute Lymphs (auto) (1.32-3.57) x10^3/uL Absolute Monos (auto) (0.30-0.82) x10^3/uL Absolute Nucleated RBC (0.00-0.012) x10^3u/L Lymphocytes % (21.8-53.1) % Monocytes % (5.3-12.2) % Eosinophils % (0.8-7.0) % Basophils % (0.2-1.2) % Absolute Granulocytes (1.78-5.38) x10^3/uL Basophils # (0.01-0.08) x10^3/uL Sodium (135-145) mmol/L Potassium (3.5-5.1) mmol/L Chloride (98-107) mmol/L Carbon Dioxide (22-30) mmol/L Anion Gap (5-15) MEQ/L BUN (9-20) mg/dL Creatinine (0.66-1.25) mg/dL Estimated GFR ML/MIN Glucose (74-106) mg/dL Hemoglobin A1c 5.33 (4.5-6.0) % Calcium (8.4-10.2) mg/dL Magnesium (1.6-2.3) mg/dL Total Bilirubin (0.2-1.3) mg/dL AST (17-59) U/L ALT (0-50) U/L Alkaline Phosphatase (38-126) U/L Troponin I (0.000-0.033) ng/mL Serum Total Protein (6.3-8.2) g/dL Albumin (3.5-5.0) g/dL Prealbumin (17.6-36.0) mg/dL Urine Color (Yellow) Urine Appearance (Clear) Urine pH (4.6-8.0) Ur Specific [place] (1.005-1.030) Urine Protein (Negative) Urine Glucose (UA) (Negative) mg/dL Urine Ketones (Negative) Urine Blood (Negative) Urine Nitrite (Negative) Urine Bilirubin (Negative) Urine Urobilinogen (0.2) mg/dL Ur Leukocyte Esterase (Negative) U Hyaline Cast (Auto) (0-2) /LPF Urine Microscopic RBC (0-5) /HPF Urine Microscopic WBC (0-5) /HPF Ur Epithelial Cells (None Seen) /HPF Urine Bacteria (None Seen) /HPF Urine Culture Reflexed (NO) Salicylates (2-20) mg/dL Urine Opiates Level (NEGATIVE) Ur Methadone (NEGATIVE) Acetaminophen (10-30) ug/ml Urine Barbiturates (NEGATIVE) Ur Phencyclidine (PCP) (NEGATIVE) Urine Amphetamine (NEGATIVE) U Benzodiazepine Level (NEGATIVE) Urine Cocaine (NEGATIVE) Urine Marijuana (THC) (NEGATIVE) Ethyl Alcohol (0-10) mg/dL Medications: Medications Generic Name Dose Route Start Last Admin Trade Name Freq PRN Reason Stop Dose Admin Acetaminophen 650 mg 04/07/25 09:20 Acetaminophen 325 Mg Tablet PO 05/07/25 09:19 Q6H PRN PRN PAIN AND/OR FEVER Enoxaparin Sodium 40 mg 04/07/25 10:00 Enoxaparin Sodium 40 Mg/0.4 Ml Syringe SQ 05/07/25 09:59 DAILY KARENA Folic Acid 1 mg 04/07/25 10:00 Folic Acid 1 Mg Tablet PO 05/07/25 09:59 DAILY KARENA Hydroxyzine HCl 50 mg 04/07/25 10:00 Hydroxyzine Hcl 25 Mg Tablet PO 05/07/25 09:59 DAILY KARENA Dextrose/Sodium Chloride 1,000 mls @ 100 mls/hr 04/06/25 21:45 04/07/25 08:06 Dextrose 5% -0.45 Nacl 1000 Ml IV 05/06/25 21:44 100 mls/hr .Q10H KARENA Administration Lorazepam 1 mg 04/06/25 21:55 Lorazepam 1 Mg Tablet PO 05/06/25 21:54 PRN PRN CIWA SCORE Lorazepam 1 mg 04/07/25 07:13 Lorazepam 20 Mg/10 Ml Mdv 2 Mg/Ml For Single Doses IV 05/07/25 07:12 Q4H PRN PRN ANXIETY Lorazepam 1 mg 04/07/25 07:13 Lorazepam 20 Mg/10 Ml Mdv 2 Mg/Ml For Single Doses IV 05/07/25 07:12 PRN PRN CIWA SCORE Lorazepam 0 mg 04/07/25 07:14 04/07/25 08:20 Lorazepam 20 Mg/10 Ml Mdv 2 Mg/Ml For Single Doses IV 05/07/25 07:13 2 mg Q2H PRN PRN Administration CIWA SCORE Protocol Miscellaneous Information 1 each 04/07/25 07:30 Medication Intervention 1 Each Each 05/07/25 07:29 .RN TO CHECK [facility] Miscellaneous Information 1 each 04/07/25 07:30 Medication Intervention 1 Each Each 05/07/25 07:29 .RN TO CHECK [facility] Multivitamins Therapeutic 1 tab 04/07/25 10:00 Multivitamins,Therapeutic 1 Tab Tab PO 05/07/25 09:59 QAM KARENA Ondansetron HCl 4 mg 04/06/25 21:00 Zofran 4 Mg/Udtablet Orally Disintegrating PO 05/06/25 20:59 Q6H PRN PRN NAUSEA/VOMITING Ondansetron HCl 4 mg 04/06/25 21:44 Ondansetron Hcl 4 Mg/2 Ml Vial IV 05/06/25 21:43 Q6H PRN PRN NAUSEA/VOMITING Quetiapine Fumarate 25 mg 04/06/25 21:44 Quetiapine Fumarate 25 Mg Tablet PO 05/06/25 21:43 BIDPRN PRN ANXIETY Ropinirole HCl 0.5 mg 04/07/25 10:00 Ropinirole Hcl 0.5 Mg Tablet PO 05/07/25 09:59 DAILY KARENA Thiamine HCl 100 mg 04/07/25 10:00 Thiamine Hcl 100 Mg Tablet PO 05/07/25 09:59 DAILY KARENA Discontinued Medications Generic Name Dose Route Start Last Admin Trade Name Freq PRN Reason Stop Dose Admin Acetaminophen 975 mg 04/06/25 17:42 04/06/25 17:58 Acetaminophen 325 Mg Tablet PO 04/06/25 17:43 975 mg STAT STA Administration Acetaminophen Confirm 04/06/25 17:58 Acetaminophen 325 Mg Tablet Administered 04/06/25 17:59 Dose 975 mg .ROUTE .STK-MED ONE Acetaminophen 325 mg 04/06/25 21:44 Acetaminophen 325 Mg Tablet PO 05/06/25 21:43 Q4H PRN PRN PAIN, FEVER, HEADACHE Diphenhydramine HCl 25 mg 04/06/25 20:27 04/06/25 20:37 Diphenhydramine Hcl 50 Mg/Ml Vial IV 04/06/25 20:28 25 mg STAT ONE Administration Diphenhydramine HCl Confirm 04/06/25 20:31 Diphenhydramine Hcl 50 Mg/Ml Vial Administered 04/06/25 20:32 Dose 50 mg .ROUTE .STK-MED ONE Hydromorphone HCl 1 mg 04/06/25 20:26 04/06/25 20:38 Hydromorphone 1 Mg/1ml Inj IV 04/06/25 20:27 1 mg STAT ONE Administration Hydromorphone HCl Confirm 04/06/25 20:31 Hydromorphone 1 Mg/1ml Inj Administered 04/06/25 20:32 Dose 1 mg .ROUTE .STK-MED ONE Hydroxyzine HCl 50 mg 04/06/25 18:37 04/06/25 19:18 Hydroxyzine Hcl 25 Mg Tablet PO 04/06/25 18:38 50 mg STAT ONE Administration Hydroxyzine HCl Confirm 04/06/25 19:17 Hydroxyzine Hcl 25 Mg Tablet Administered 04/06/25 19:18 Dose 50 mg .ROUTE .STK-MED ONE Sodium Chloride 1,000 mls @ 999 mls/hr 04/06/25 20:23 04/06/25 20:55 Sodium Chloride 0.9% 1000 Ml IV 04/06/25 21:23 0 mls/hr .Q1H1M STA Infusion Sodium Chloride Confirm 04/06/25 20:24 Sodium Chloride 0.9% 1000 Ml Administered 04/06/25 20:25 Dose 1,000 mls @ ud .ROUTE .STK-MED ONE Ibuprofen 600 mg 04/06/25 19:22 04/06/25 19:29 Ibuprofen 600 Mg Tablet PO 04/06/25 19:23 600 mg STAT ONE Administration Ibuprofen Confirm 04/06/25 19:27 Ibuprofen 600 Mg Tablet Administered 04/06/25 19:28 Dose 600 mg .ROUTE .STK-MED ONE Lorazepam 2 mg 04/06/25 19:19 04/06/25 19:30 Lorazepam 2 Mg/1 Ml 2 Mg Vial IM 04/06/25 19:20 2 mg STAT ONE Administration Lorazepam Confirm 04/06/25 19:28 Lorazepam 20 Mg/10 Ml Mdv 2 Mg/Ml For Single Doses Administered 04/06/25 19:29 Dose 40 mg .ROUTE .STK-MED ONE Lorazepam 0 mg 04/06/25 21:55 04/07/25 04:30 Lorazepam 2 Mg/1 Ml 2 Mg Vial IV 05/06/25 21:54 2 mg Q2H PRN PRN Administration CIWA SCORE Protocol Lorazepam Confirm 04/07/25 01:20 Lorazepam 20 Mg/10 Ml Mdv 2 Mg/Ml For Single Doses Administered 04/07/25 01:21 Dose 40 mg .ROUTE .STK-MED ONE Lorazepam Confirm 04/07/25 04:28 Lorazepam 20 Mg/10 Ml Mdv 2 Mg/Ml For Single Doses Administered 04/07/25 04:29 Dose 40 mg .ROUTE .STK-MED ONE Non-Formulary Medication 200 mg 04/06/25 22:00 04/06/25 22:53 Quetiapine Fumarate [Seroquel Xr] PO 05/06/25 21:59 Not Given HS KARENA Prochlorperazine Edisylate 5 mg 04/06/25 20:27 04/06/25 20:37 Prochlorperazine Edisylate 10 Mg/2 Ml Vial IV 04/06/25 20:28 5 mg STAT ONE Administration Prochlorperazine Edisylate Confirm 04/06/25 20:31 Prochlorperazine Edisylate 10 Mg/2 Ml Vial Administered 04/06/25 20:32 Dose 10 mg .ROUTE .STK-MED ONE Quetiapine Fumarate 100 mg 04/06/25 17:24 04/06/25 17:39 Quetiapine Fumarate 100 Mg Tablet PO 04/06/25 17:25 100 mg STAT ONE Administration Quetiapine Fumarate 100 mg 04/06/25 22:48 04/06/25 22:54 Quetiapine Fumarate 100 Mg Tablet PO 04/06/25 22:49 100 mg STAT ONE Administration Assessment/Plan (1) Suicidal behavior with attempted self-injury Current Visit: No Status: Acute Assessment & Plan: - Denies suicidal thought today - Psych consult when alcohol level normalizes - CBC, CMP reviewed - Continue psych meds - Pics in chart of scars from hx of previous attempts. No current open or healing areas. - 1:1 observation in ICU on Tele. Code(s): T14.91XA - SUICIDE ATTEMPT, INITIAL ENCOUNTER (2) Alcohol intoxication Current Visit: Yes Status: Acute Assessment & Plan: - Alcohol level 33 today- will recheck at noon - Continue IVF - CIWA protocol - ICU - Tele (3) Transaminitis Current Visit: Yes Status: Acute Assessment & Plan: - AST 67, ALT 71- improving today - 2:2 ETOH use Code(s): R74.01 - ELEVATION OF LEVELS OF LIVER TRANSAMINASE LEVELS (4) Tetrahydrocannabinol (THC) use disorder, mild, abuse Current Visit: Yes Status: Acute Assessment & Plan: - + on UDS - Advised cessation Code(s): F12.10 - CANNABIS ABUSE, UNCOMPLICATED (5) Dehydration Current Visit: Yes Status: Acute Assessment & Plan: - Resolved - Anion gap normalized - CMP reviewed Code(s): E86.0 - DEHYDRATION (6) Hyperglycemia Current Visit: Yes Status: Acute Assessment & Plan: - A1C 5.33 - Glucose elevated on admission at 132 VTE: Lovenox PPI: Protonix Next if KIN: Parent- Shelbie Gerardo [phone] D/C plan: 1-2 days Code status: Full Plan of care time: > 40 minutes Code(s): R73.9 - HYPERGLYCEMIA, UNSPECIFIED
[2025-04-07] MEDS ORDERED: NON-FORMULARY ITEM (Hydroxyzine Hcl [Hydroxyzine Hcl] 50 MG Tablet) PO SCH (10:00)
[2025-04-07] MEDS ORDERED: NON-FORMULARY ITEM (Buprenorphine Hcl/Naloxone Hcl [Buprenorphine-Nalox 8-2 Mg Tab] 1 EACH PO SCH (10:00)
[2025-04-07] MEDS: MOTRIN 600 MG PO PRN (10:29)
[2025-04-07] MEDS: THERAGRAN MULTIVITAMIN PO SCH (10:44)
[2025-04-07] MEDS: FOLATE 1 MG PO SCH (10:44)
[2025-04-07] MEDS: Protonix 20MG Tablet PO SCH (10:44)
[2025-04-07] MEDS: ATARAX 25 MG PO SCH (10:45)
[2025-04-07] MEDS: VITAMIN B-1 100 MG PO SCH (10:45)
[2025-04-07] MEDS: ENOXAPARIN SODIUM SQ SCH (11:28)
[2025-04-07] MEDS: Imitrex 6 MG/0.5 ML SQ ONE ×2 (16:19→22:10)
[2025-04-07] MEDS: Requip 0.5 MG PO SCH ×2 (19:25→21:06)
[2025-04-08 05:05] VITALS: O2SAT 100
[2025-04-08] MEDS: ZOFRAN ODT 4 MG PO PRN (07:46)
--- NOTE | 2025-04-08 07:49 | PCM.DS ---
Discharge Summary Date of Admission: 04/06/25 20:56 Date of Discharge: 04/08/25 Admitting Physician: DAMARIS QURESHI MD Consults: Consults on Case 04/06/25 17:24 Psychiatric Consult STAT 04/07/25 07:30 Case Management SDOH DC Needs Assessment ROUTINE Primary Care Provider: NO FAMILY DOCTOR Allergies Allergies tramadol HCl [From Ultram] Adverse Reaction (Mild, Verified 03/17/25 12:54) pt states that they mess with his heart trazodone Adverse Reaction (Mild, Verified 03/17/25 12:54) pt states that it messes with his heart Hospital Summary - Hospital Course Hospital Course: The patient is a 34-year-old male with a history of depression with prior self- mutilation episodes, anxiety, and alcohol abuse who presented to the emergency department with suicidal ideation, including thoughts of using any available means, drowning, and suffocation. He had been off his psychiatric medications since discharge from the [facility] 23 weeks prior. In the ED, he was noted to be tearful and also reported dysuria without discharge. He admitted to drinking approximately 10 beers daily, with his last drink occurring prior to arrival, and has a history of alcohol withdrawal. On evaluation, he was cooperative and pleasant, without slurred speech or emotional lability. His blood alcohol level was elevated on admission, and he was placed on CIWA protocol and started on IV fluids. During his hospital stay, the patients liver enzymes improved (AST 67, ALT 71), and he remained hemodynamically stable. Urine drug screen was positive for THC. He continued to express a desire for psychiatric stabilization and placement, reporting persistent abnormal auditory perceptions, though he denied visual hallucinations. He also acknowledged barriers to accessing [place] due to lack of transportation. The patient voiced interest in entering a assisted house and expressed willingness to stop camping outdoors if stable housing and treatment were available. On 04/08, the patient was awake, alert, experiencing some anxiety and tremors, but overall in good spirits. He reported no suicidal ideation and was eager for transfer to rehabilitation. He has been accepted to [facility] [facility] and is scheduled to discharge between 8 a.m. and noon today. He denies any current complaints or concerns. The patient will discharge to rehab for continued management of his mental health and substance use disorders. - Vitals & Intake/Output Vital Signs: Vital Signs Temperature 97.2 F 04/08/25 04:21 Pulse Rate 69 04/08/25 05:00 Respiratory Rate 13 04/08/25 05:00 Blood Pressure 147/98 04/08/25 05:00 O2 Sat by Pulse Oximetry 100 04/08/25 05:00 Intake & Output: Intake & Output 04/05/25 04/06/25 04/07/25 04/08/25 11:59 11:59 11:59 11:59 Intake Total 2535 2868 Output Total 950 800 Balance 1585 2068 Weight 56.9 kg - Lab Result Diagrams: 04/07/25 04:21 04/07/25 04:21 Lab Results-Last 24 Hrs: Lab Results-Last 24 Hours 04/07/25 Range/Units 12:03 Ethyl Alcohol < 10 (0-10) mg/dL - Procedures and Test Procedures and Tests throughout Hospitalization: Therapy Orders & Screens 04/06/25 21:39 Smoking Cessation Education ONCE Comment: Diagnosis: Suicidal ideation Smoking Status: Current every day smoker How long have you smoked: 13 yrs Have you smoked in the past 12 months: Yes Approximately how many cigarettes per day: 1/2pack/day cigarettes & vapes also Do you dip or chew tobacco: No 04/06/25 21:44 EKG REPEAT IN AM Comment: Diagnosis: Suicidal ideation Discharge Exam General Appearance: no apparent distress, alert Neurologic Exam: alert, oriented x 3, cooperative, normal mood/affect, nml cerebellar function, sensation nml, No motor deficits Eye Exam: PERRL, EOMI, eyes nml inspection Ears, Nose, Throat Exam: normal ENT inspection, pharynx normal, moist mucous membranes Neck Exam: normal inspection, non-tender, supple, full range of motion Respiratory Exam: normal breath sounds, lungs clear, No respiratory distress Cardiovascular Exam: regular rate/rhythm, normal heart sounds Gastrointestinal/Abdomen Exam: soft, No tenderness, No mass Male Genitalia Exam: deferred Rectal Exam: deferred Back Exam: normal inspection, normal range of motion, No CVA tenderness, No vertebral tenderness Extremity Exam: normal inspection, normal range of motion Skin Exam: normal color, warm, dry Wound Assessment: Skin/Wound Assessment Wound/Incision Assessment Start: 04/06/25 21:39 Text: Status: Active Freq: Q6H Protocol: Document 04/08/25 04:00 KD (Rec: 04/08/25 04:30 JULIETTE [id number]) Wound/Incision Assessment Left Lower Arm Wound Assessment Shift Assessment Wound Type Scars Wound Stage Non Pressure Wound Drainage Amount None General Appearance Open to air Comment multiple scars in various stages of healing - remains true Left Upper Arm Wound Assessment Shift Assessment Wound Type Scars Wound Stage Non Pressure Wound Drainage Amount None General Appearance Open to air Comment multiple scars Left Upper Chest Wound Assessment Shift Assessment Wound Type Scars Wound Stage Non Pressure Wound Drainage Amount None General Appearance Open to air Comment multiple scars Right Lower Arm Wound Assessment Shift Assessment Wound Type Scars Wound Stage Non Pressure Wound Drainage Amount None General Appearance Well Approximated,Open to air Comment multiple scars Wound Photo Photo Taken No Final Diagnosis/Problem List - Final Discharge Diagnosis/Problem (1) Suicidal behavior with attempted self-injury Current Visit: No Status: Acute Code(s): T14.91XA - SUICIDE ATTEMPT, INITIAL ENCOUNTER (2) Alcohol intoxication Current Visit: Yes Status: Acute (3) Transaminitis Current Visit: Yes Status: Acute Code(s): R74.01 - ELEVATION OF LEVELS OF LIVER TRANSAMINASE LEVELS (4) Tetrahydrocannabinol (THC) use disorder, mild, abuse Current Visit: Yes Status: Acute Code(s): F12.10 - CANNABIS ABUSE, UNCOMPLICATED (5) Dehydration Current Visit: Yes Status: Acute Code(s): E86.0 - DEHYDRATION (6) Hyperglycemia Current Visit: Yes Status: Acute Assessment & Plan: (1) Suicidal behavior with attempted self-injury Current Visit: No Status: Acute Assessment & Plan: - Denies suicidal thought today - Psych consult when alcohol level normalizes - CBC, CMP reviewed - Continue psych meds - Pics in chart of scars from hx of previous attempts. No current open or healing areas. - 1:1 observation in ICU on Tele 04/08 - D/C to [facility]. Code(s): T14.91XA - SUICIDE ATTEMPT, INITIAL ENCOUNTER (2) Alcohol intoxication Current Visit: Yes Status: Acute Assessment & Plan: - Alcohol level 33 today- will recheck at noon- repeat < 10 - Continue IVF - CIWA protocol - ICU - Tele (3) Transaminitis Current Visit: Yes Status: Acute Assessment & Plan: - AST 67, ALT 71- improving today - 2:2 ETOH use 04/08 - CMP pending Code(s): R74.01 - ELEVATION OF LEVELS OF LIVER TRANSAMINASE LEVELS (4) Tetrahydrocannabinol (THC) use disorder, mild, abuse Current Visit: Yes Status: Acute Assessment & Plan: - + on UDS - Advised cessation Code(s): F12.10 - CANNABIS ABUSE, UNCOMPLICATED (5) Dehydration Current Visit: Yes Status: Acute Assessment & Plan: - Resolved - Anion gap normalized - CMP reviewed Code(s): E86.0 - DEHYDRATION (6) Hyperglycemia Current Visit: Yes Status: Acute Assessment & Plan: - A1C 5.33- not diabetic - Glucose elevated on admission at 132 Code(s): R73.9 - HYPERGLYCEMIA, UNSPECIFIED - Discharge Discharge Date: 04/08/25 ([facility]) Disposition: XFER OTHER Condition: Stable Prescriptions: Continue Buprenorphine HCl/Naloxone HCl [Buprenorphine-Nalox 8-2 mg Tab] 8 mg PO DAILY hydrOXYzine HCL [Hydroxyzine HCl] 50 mg PO DAILY Ropinirole HCl 0.5 mg [Requip 0.5 MG] 0.5 mg PO HS Quetiapine Fumarate [Seroquel Xr] 200 mg PO HS Quetiapine Fumarate 25 mg [Seroquel 25 MG] 25 mg PO BIDPRN PRN PRN Reason: Anxiety Follow up with: DOCTOR,NO FAMILY [Primary Care Provider, UNKNOWN]
[2025-04-08 08:35] LABS: Calcium 9.9 mg/dL (8.4-10.2); Carbon Dioxide 29.0 mmol/L (22-30); Creatinine 1 0.6 mg/dL (0.66-1.25); EST GLOMERULAR FILTRATION RATE 131.5 ML/MIN; Glucose 97.0 mg/dL (74-106); Potassium 4.0 mmol/L (3.5-5.1); SGOT/AST 67.0 U/L (17-59); SGPT/ALT 79.0 U/L (0-50); Total Protein 7.9 g/dL (6.3-8.2)
[2025-04-08 14:12] VITALS: BP 162/91; PULSE 94; RESP 15; TEMP 98.2
== END 2025-04-08 14:55 ==
LOC: ED 17:04 → ICU 20:56
PROVIDERS: ADMIT Internal Medicine; ATTEND Internal Medicine
DX: T14.91XA Suicide attempt, initial encounter (principal); Z59.811 Housing instability, housed, with risk of homelessness; Z59.12 Inadequate housing utilities; Z59.82 Transportation insecurity; F10.129 Alcohol abuse with intoxication, unspecified; R74.01 Elevation of levels of liver transaminase levels; F12.10 Cannabis abuse, uncomplicated; E86.0 Dehydration; R73.9 Hyperglycemia, unspecified; F32.A Depression, unspecified; Z79.899 Other long term (current) drug therapy